=== PATIENT | male | born 1960 | race Caucasian/White ===

== ENCOUNTER 2016-05-06 22:50 | Inpatient (IN) | payer OTHER ==
[~2016-05-06] VITALS: Ht 182.9 cm; Wt 88.0 kg
[~2016-05-06 22:50] MED LIST: ACTOS30 M1 PO; ASPIRIN81 M4 PO; AUGMENTIN 875-1 EACH PO; DULOXETINE HCL30 MG PO; FERROUS SULFAT325 M2 PO; FLUOXETINE20 MG PO; FOLIC ACID1 M1 PO; HYDROCODONE/APA1 TA1 PO; KLOR-CON-EF 2525 MEQ PO; LASIX20 MG PO; LIPITOR20 M2 PO; METFORMIN HCL500 M3 PO; METOPROLOL TART25 M1 PO; NEURONTIN300 MG PO; NEXIUM40 M1 PO; OXYCODONE-ACET1 EACH PO; PRINIVIL 5MG5 MG PO; TRAZODONE HCL50 M1 PO
--- NOTE | 2016-05-06 23:03 | ED SYNCOPE COMPLAINT ---
History of Present Illness General Chief Complaint: Syncope and Near-Syncope Stated Complaint: NEAR SYNCOPE WITH FALL, INJURED RIGHT SHOULDER Source: patient, EMS Exam Limitations: no limitations Vital Signs & Intake/Output Vital Signs & Intake/Output Vital Signs Date Time Temp Pulse Resp B/P Pulse O2 O2 Flow FiO2 Ox Delivery Rate 05/07 0135 68 20 98/63 100 Room Air 05/07 0121 88/61 05/07 0104 100 Room Air 05/07 0100 68 16 82/52 100 Room Air 05/07 0002 76/44 05/06 2255 96.7 73 18 95/58 97 Room Air ED Intake and Output 05/07 0000 05/06 1200 Intake Total Output Total Balance Patient 195 lb Weight Allergies Coded Allergies: NO KNOWN ALLERGIES (12/17/15) Triage Note: BIBA FOR DIZZY SPELL RESULTING IN FALL WITH INJURY TO RIGHT SHOULDER. PT LAID ON FLOOR IN HOUSE FOR 2 HOURS UNTIL HE COULD CRAWL TO PHONE AND CALL FOR HELP. ONCE EMS ARRIVED PT WAS ASSISTED TO SITTING POSITION IN CHAIR AND HAD NEAR SYNCOPAL EPISODE IN CHAIR. IV STARTED AND GIVEN 400CC NS BY EMS. UPON ARRIVAL PT AWAKE ALERT, ORIENTED. COLD AND SHIVERING, PAIN 10 OUT OF 10 IN SHOULDER WITH ANY MANIPULATION OF JOINT. +PALPABLE PULSE IN RIGHT RADIAL ARTERY ARTER. + MOVEMENT AND SENSATION RIGHT HAND Triage Nurses Notes Reviewed? yes Timing: single episode today Precipitating Factors: lightheadedness Loss of Consciousness: brief (seconds) HPI: 56-year-old male comes into the emergency room for further evaluation after feeling lightheaded and dizzy and falling at home. Patient reports that he was walking in the kitchen and felt lightheaded and fell and came down on his right shoulder. Patient has sharp throbbing pain to right shoulder. Patient denies hitting his head or any neck pain. Patient was on the floor for a couple hours close using severe pain and could not move. Denies any pain in his hips. Denies any preceding chest pain or shortness of breath. History of low blood pressure. EMS reports that when they arrived they were moving him to the stretcher he had a brief syncopal episode. His blood pressure was 80 systolic. (KIM GARCÍA,BENNIE) Reconcile Medications Aspirin (Aspirin*) 81 MG TAB.CHEW 1 TAB PO DAILY HEART HEALTH . Atorvastatin Calcium (Lipitor) 20 MG TABLET 1 TAB PO DAILY CHOLESTEROL ( Reported) Duloxetine HCl 30 MG CAPSULE.DR 1 CAP PO DAILY MOOD (Reported) Esomeprazole (Nexium) 40 MG CAPSULE.DR 1 CAP PO DAILY GI (Reported) Ferrous Sulfate 325 MG TABLET.DR 1 TAB PO DAILY ANEMIA . Folic Acid 1 MG TABLET 1 TAB PO DAILY SUPPLEMENT Furosemide (Lasix) 20 MG TABLET 3 TAB PO DAILY hEART fAILURE (Reported) Gabapentin (Neurontin) 300 MG CAP 1 CAP PO TID PAIN Metformin HCl 500 MG TABLET 1 TAB PO DAILY dm (Reported) Metoprolol Tartrate 25 MG TABLET 1 MG PO BID HEART . Oxycodone HCl/Acetaminophen (Oxycodone-Acetaminophen 5-325) 1 EACH TABLET 1 TAB PO BIDP PRN PAIN (Reported) PIOGLITAZONE HCL (Pioglitazone HCl) 30 MG TABLET 1 TAB PO DAILY DIABETES ( Reported) Potassium Bicarbonate/Cit AC (Klor-Con-Ef 25 Meq Tab Eff) 25 MEQ TABLET.EFF 1 TAB PO DAILY SUPPLEMENT (Reported) Trazodone HCl 50 MG TABLET 1 TAB PO QPM SLEEP (Reported) (RUTH MORATAYA,IRINA Pride) Past History Travel History Traveled to [place] past 21 day No Medical History Any Pertinent Medical History? see below for history Neurological: peripheral neuropathy EENT: allergies Cardiovascular: CHF (Right sided), hypertension, hyperlipidemia Respiratory: NONE Gastrointestinal: NONE Hepatic: NONE Renal: NONE Musculoskeletal: NONE Psychiatric: NONE Endocrine: diabetes Blood Disorders: NONE Cancer(s): NONE MEDICAL APPOINTMENT SCHEDULER/Reproductive: NONE History of MRSA: No History of VRE: No History of CDIFF: No Surgical History Surgical History: appendectomy, hernia repair-inguinal, 2 hernia repairs Left leg debridement s/p dog bite back surgery Psychosocial History Who do you live with Patient/Self Services at Home None What is your primary language German Tobacco Use: Current Daily Use Daily Tobacco Use Amount/Type: => 5 Cigarettes daily ETOH Use: heavy use, TWO DRINKS PER DAY Illicit Drug Use: denies illicit drug use Family History Family History, If Any: MOTHER FH: COPD (chronic obstructive pulmonary disease) FATHER, , Age 50-60; Cause: Esophageal carcinoma. Esophageal carcinoma Hx Contributory? No (BENNIE RODRÍGUEZ) Review of Systems Review of Systems Constitutional: Reports: no symptoms. EENTM: Reports: no symptoms. Respiratory: Reports: see HPI. Cardiovascular: Reports: see HPI. GI: Reports: no symptoms. Genitourinary: Reports: no symptoms. Musculoskeletal: Reports: no symptoms. Skin: Reports: no symptoms. Neurological/Psychological: Reports: no symptoms. All Other Systems: Reviewed and Negative (BENNIE RODRÍGUEZ) Physical Exam Physical Exam General Appearance: alert, awake, mild distress Head: atraumatic, normal appearance Eyes: Bilateral: normal appearance, EOMI. Ears, Nose, Throat: normal pharynx, normal ENT inspection, hearing grossly normal Neck: normal inspection, full range of motion Respiratory: normal breath sounds, no respiratory distress Cardiovascular: regular rate/rhythm Back: normal inspection Extremities: Swelling to right shoulder, severe limited range of motion, proximal humerus tenderness, Psychiatric: awake, alert, oriented x 3 Cranial Nerves: normal hearing, normal speech, PERRL Motor/Sensory: no motor/sensory deficits Skin: intact, normal color Core Measures ACS in differential dx? No CVA/TIA Diagnosis: No Severe Sepsis Present: No Septic Shock Present: No (BENNIE RODRÍGUEZ) Progress Differential Diagnosis: AMI, aortic dissection, aortic valve, drug induced syncope, hyperventilation, orthostatic syncope, other valvular disease, pacemaker malfunction, pericardial tamponade, pulmonary embolus, seizure, sick sinus syndrome, subarachnoid hem., TIA/CVA, vasodepressor syncope, ventricular tach/fib, proximal humerus fracture, CT, Plan of Care: Orders Procedure Date/time Status Lab Add-on Test 05/07 0234 Active Patient Data 05/07 0115 Active Admit to inpatient 05/07 0102 Active URINE OSMOLALITY 05/07 0100 Active URINE LYTES, SPOT 05/07 0100 Active Add-on Test (ER Only) 05/07 0012 Active URINE DRUGS OF ABUSE 05/07 0012 Active Intake & Output 05/07 0000 Active Add-on Test (ER Only) 05/06 2359 Active URINALYSIS 05/06 2345 Complete SERUM OSMOLALITY 05/06 2327 Active MAGNESIUM 05/06 2327 Active ETHANOL 05/06 2327 Active Telemetry/Logistics Center Manager 05/06 2302 Active TROPONIN LEVEL 05/06 2302 Active COMPREHENSIVE METABOLIC PANEL 05/06 2302 Active CBC WITHOUT DIFFERENTIAL 05/06 2302 Complete EKG 05/06 2302 Active Current Medications Sig/Williams Start time Last Medication Dose Stop Time Status Admin Nicotine 21 MG DAILY 05/07 1000 UNVr (Nicoderm) Magnesium Sulfate 2 GM ONCE ONE 05/07 0245 UNVr (Mag Sulfate) 05/07 06 Dextrose/Water 250 ML (D5W) Potassium Chloride 40 MEQ Q8H 05/07 244 AC (KCl 40MEQ in N.S. 1000 ml bag) Sodium Chloride 1,000 ML (Normal Saline 0.9%) Potassium Chloride 10 MEQ ONCE ONE 05/07 244 UNVr 05/07 245 Potassium Chloride 10 MEQ ONCE ONE 05/07 244 UNVr 05/07 245 Laboratory Tests 05/07/16 0100: Urinalysis LIGHT H, Urine Color YEL, Urine Clarity CLEAR, Urine pH 6.0, Ur Specific [place] 1.010, Urine Protein TRACE H, Urine Ketones 40 H, Urine Nitrite NEG, Urine Bilirubin NEG@ICTO, Urine Urobilinogen 1.0, Ur Leukocyte Esterase NEG, Ur Microscopic SEDIMENT EXAMINED, Urine RBC 1-3, Ur Epithelial Cells RARE, Urine Mucus RARE, Urine Hemoglobin TRACE-INTACT H, Urine Glucose NEG 05/07/16 0100: Urine Opiates Screen 402.00, Methadone Screen 51, Barbiturate Screen < 60, Ur Phencyclidine Scrn < 6.00, Amphetamines Screen < 100, U Benzodiazepines Scrn < 85, Urine Cocaine Screen < 50, Urine Cannabis Screen < 5.00, Urine Osmolality Pending, Ur Random Creatinine Pending, Ur Random Sodium Pending, Ur Random Potassium Pending, Fraction Sodium Excret Pending 05/06/167: Anion Gap 34 H, Estimated GFR 45 L, BUN/Creatinine Ratio 16.3, Glucose 174 H, Serum Osmolality Pending, Calcium 8.5, Magnesium 1.3 L, Total Bilirubin 1.6 H, AST 29, ALT 32, Alkaline Phosphatase 80, Troponin I 0.03, Total Protein 7.3, Albumin 4.4, Globulin 2.9, Albumin/Globulin Ratio 1.5, CBC w Diff NO MAN DIFF REQ, RBC 4.26 L, MCV 89.2, MCH 30.9, RDW 12.6, MPV 8.0, Gran % 85.9 H, Lymphocytes % 7.6 L, Monocytes % 6.2, Eosinophils % 0.1, Basophils % 0.2, Absolute Granulocytes 9.8 H, Absolute Lymphocytes 0.9 L, Absolute Monocytes 0.7 H, Absolute Eosinophils 0, Absolute Basophils 0, PUBS MCHC 34.6, Serum Alcohol < 10.0 Diagnostic Imaging: Viewed by Me: Radiology Read. Discussed w/RAD: Radiology Read. Initial ED EKG: normal p-waves, normal sinus rhythm, rate (68), nonspecific ST T wave chg Prior EKG: changed Hand-Off Endorsed To: IRINA MIRANDA MD Endorsed Time: 53 Pending: other (primary care to call back) (BENNIE RODRÍGUEZ) Comments: 05/07/2016 1:00:24 AM patient's case discussed with Dr. DEAL. If we can stabilize the patient's blood pressure he will be admitted to the telemetry service otherwise an ICU admission. Patient is being treated with IV fluid boluses, potassium supplementation. 05/07/2016 2:44:33 AM patient placed in a shoulder immobilizer given the proximal humerus fracture. House staff to contact orthopedics. (IRINA MIRANDA MD) Departure Departure Disposition: STILL A PATIENT Condition: Stable Clinical Impression Primary Impression: Hypokalemia Secondary Impressions: Acute electrocardiogram changes, Acute kidney injury, ETOH abuse, High anion gap metabolic acidosis, Hypotension, Proximal humerus fracture Referrals: EMANI GALDAMEZ MD (PCP/Family) Departure Forms: Customer Survey General Discharge Information Admission Note Documentation of Exam: Documentation of any treatments & extenuating circumstances including Concerns Regarding Discharge (functional status, medication knowledge or non-compliance, living conditions, etc.) that warrant an admission rather than observation: Patient will require aggressive IV hydration. IV potassium. Critical care. Orthopedic consultation. Case management consult. EKG changes. Patient unsafe at home. Cardiac consultation. (BENNIE RODRÍGUEZ) PA/SCHEDULING ADMINISTRATOR Co-Sign Statement Statement: ED Attending supervision documentation- [] I saw and evaluated the patient. I have also reviewed all the pertinent lab results and diagnostic results. I agree with the findings and the plan of care as documented in the PA's/SCHEDULING ADMINISTRATOR's documentation. [X] I have reviewed the ED Record and agree with the PA's/SCHEDULING ADMINISTRATOR's documentation. [] Additions or exceptions (if any) to the PAs/SCHEDULING ADMINISTRATOR's note and plan are summarized below: [] (IRINA MIRANDA MD) Critical Care Note Critical Care Note Critical Care Time: 30-74 min (IRINA MIRANDA MD)
--- NOTE | 2016-05-06 23:31 | NUR ---
PT RECIEVED TO ROOM 6. SEEN BY BENNIE GARCÍA. IV IN PLACE BY EMS, LABS DRAWN. PT PANTS SOILED WITH URINE-ASSISTED IN GETTING UNDRESSED. PT IN SEVERE PAIN IN SHOULDER WITH SLIGHTEST MOVEMENT OF BODY. PT REFUSING XRAYS UNTIL GIVEN PAIN MEDICATION. IVF BOLUS OF NS INFUSING DUE TO LOW BLOOD PRESSURES.
--- NOTE | 2016-05-06 23:31 | NUR ---
BIBA FOR DIZZY SPELL RESULTING IN FALL WITH INJURY TO RIGHT SHOULDER. PT LAID ON FLOOR IN HOUSE FOR 2 HOURS UNTIL HE COULD CRAWL TO PHONE AND CALL FOR HELP. ONCE EMS ARRIVED PT WAS ASSISTED TO SITTING POSITION IN CHAIR AND HAD NEAR SYNCOPAL EPISODE IN CHAIR. IV STARTED AND GIVEN 400CC NS BY EMS. UPON ARRIVAL PT AWAKE ALERT, ORIENTED. COLD AND SHIVERING, PAIN 10 OUT OF 10 IN SHOULDER WITH ANY MANIPULATION OF JOINT. +PALPABLE PULSE IN RIGHT RADIAL ARTERY ARTER. + MOVEMENT AND SENSATION RIGHT HAND
[2016-05-06 23:44] LABS: ABSOLUTE BASOPHIL COUNT 0 /CUMM (0.0-0.2); ABSOLUTE EOSINOPHIL COUNT 0 /CUMM (0.0-0.7); ABSOLUTE GRANULOCYTE CT 9.8 /CUMM (1.4-6.5); ABSOLUTE LYMPH COUNT 0.9 /CUMM (1.2-3.4); ABSOLUTE MONOCYTE COUNT 0.7 /CUMM (0.10-0.60); BASOPHIL % 0.2 % (0.0-2.0); EOSINOPHIL % 0.1 % (0-5); GRANULOCYTE % 85.9 % (42.2-75.2); MEAN CORPUSCULAR HGB 30.9 PG (27.0-31.0); MEAN CORPUSCULAR HGB CONC 34.6 G/DL (33.0-37.0); MEAN CORPUSCULAR VOLUME 89.2 FL (80.0-94.0); PLATELET COUNT 193 /CUMM (130-400); RBC DISTRIBUTION WIDTH 12.6 % (11.5-14.5); RED BLOOD CELL CT 4.26 /CUMM (4.70-6.10)
--- NOTE | 2016-05-06 23:58 | NUR ---
CRITICAL TEST RESULTS [id number] MAGGIE ROONEY 56 M TESTS AND RESULTS: POTASSIUM 2.1 Results received and read back by: TOÑITO BARBER Results received date and time: 05/06/16 7234 The following provider was notified of the results, and read the results back: RAQUEL ALVAREZ Notified date and time: 05/06/16 at [id number]
[2016-05-07] VITALS (7 sets, daily range): BP systolic 72–100; BP diastolic 52–707
[2016-05-07 00:03] LABS: WHITE BLOOD CELL COUNT 11.4 /CUMM (4.8-10.8)
--- NOTE | 2016-05-07 00:30 | NUR ---
PT DAUGHTER ALICIA [phone] WOULD LIKE TO BE CALLED IF ANY FURTHER INFO NEEDED.
--- NOTE | 2016-05-07 00:32 | NUR ---
PCXR AND SHOULDER XR DONE
--- NOTE | 2016-05-07 00:40 | NUR ---
2ND IV INSERTED, NS UP WO KDUR 40 PO GIVEN
--- NOTE | 2016-05-07 01:01 | NUR ---
URINE TRIO SENT
[2016-05-07] MEDS ORDERED: FUROSEMIDE40 M1 PO (01:03)
--- NOTE | 2016-05-07 01:30 | History & Physical ---
PAULO MORATAYA,[facility] – [place] 05/07/16 0129: General Information and HPI MD Statement: I have seen and personally examined MAGGIE ROONEY and documented this H&P. The patient is a 56 year old M who presented with a patient stated chief complaint of near syncope. Source of Information: patient, old records Exam Limitations: no limitations History of Present Illness: Mr. Rooney is a 56 y/o M with PMHx of questionable right heart failure, T2DM c /b peripheral neuropathy, HTN, HLD and alcohol abuse who presents after an episode of near syncope. Patient was in his usual state of health the evening of current presentation to the ED when he felt lightheaded while walking in the kitchen and subsequently fell down on the floor landing on his right shoulder. He denies loss of consciousness or head trauma. However, he reports that while being moved to a chair by paramedics, he passed out for about 12 seconds due to severe pain in his right shoulder, which he continues to endorse. He denies chest pain, palpitations or shortness of breath leading up to the episode. He reports good PO intake and notes that he has been drinking a lot of water. He denies fever, chills, URI symptoms, nausea, vomiting or diarrhea. Of note, patient has been smoking cigarettes for the past 40 years and currently smokes about one pack per day. He admits to drinking a couple of glasses of vodka drinks daily. Of note, patient had a similar presentation to [facility] in November 2015 and was hospitalized with hypotension, hypokalemia and hypomagnesemia and treated with IVF hydration and electrolyte replacement. During that admission, he was found to be anemic and transfused 1 unit of pRBCs. An ECHO had been performed as well which had shown normal LVEF of 55-60% but was technically suboptimal and inadequate for the assessment of right heart function and pressures. Allergies/Medications Allergies: Coded Allergies: NO KNOWN ALLERGIES (12/17/15) Home Med list Aspirin (Aspirin*) 81 MG TAB.CHEW 1 TAB PO DAILY HEART HEALTH . Atorvastatin Calcium (Lipitor) 20 MG TABLET 1 TAB PO DAILY CHOLESTEROL ( Reported) Duloxetine HCl 30 MG CAPSULE.DR 1 CAP PO DAILY MOOD (Reported) Esomeprazole (Nexium) 40 MG CAPSULE.DR 1 CAP PO DAILY GI (Reported) Ferrous Sulfate 325 MG TABLET.DR 1 TAB PO DAILY ANEMIA . Folic Acid 1 MG TABLET 1 TAB PO DAILY SUPPLEMENT Furosemide (Lasix) 20 MG TABLET 3 TAB PO DAILY hEART fAILURE (Reported) Gabapentin (Neurontin) 300 MG CAP 1 CAP PO TID PAIN Metformin HCl 500 MG TABLET 1 TAB PO DAILY dm (Reported) Metoprolol Tartrate 25 MG TABLET 1 MG PO BID HEART . Oxycodone HCl/Acetaminophen (Oxycodone-Acetaminophen 5-325) 1 EACH TABLET 1 TAB PO BIDP PRN PAIN (Reported) PIOGLITAZONE HCL (Pioglitazone HCl) 30 MG TABLET 1 TAB PO DAILY DIABETES ( Reported) Potassium Bicarbonate/Cit AC (Klor-Con-Ef 25 Meq Tab Eff) 25 MEQ TABLET.EFF 1 TAB PO DAILY SUPPLEMENT (Reported) Trazodone HCl 50 MG TABLET 1 TAB PO QPM SLEEP (Reported) Past History Travel History Traveled to [place] past 21 day No Medical History Neurological: peripheral neuropathy EENT: allergies Cardiovascular: CHF (Right sided), hypertension, hyperlipidemia Respiratory: NONE Gastrointestinal: NONE Hepatic: NONE Renal: NONE Musculoskeletal: chronic back pain Psychiatric: alcohol dependence, anxiety Endocrine: diabetes Blood Disorders: NONE Cancer(s): NONE TRANSITIONAL CARE NURSE/Reproductive: NONE History of MRSA: No History of VRE: No History of CDIFF: No Surgical History Surgical History: appendectomy, hernia repair-inguinal, 2 hernia repairs, left leg debridement s/p dog bite, back surgery ECHO Results (as available) Date of last Echo 12/18/15 EF% 55 (55-60%) Past Family/Social History Family History Relations & Conditions if any MOTHER FH: COPD (chronic obstructive pulmonary disease) FATHER, , Age 50-60; Cause: Esophageal carcinoma. Esophageal carcinoma Psychosocial History Where do you live? Home Who Do You Live With? self Services at Home: None Primary Language: Portuguese Smoking Status: Current Everyday Smoker (Smokes 1 PPD, Smoked 40 Yrs) ETOH Use: heavy use (couple of vodka drinks per day) Illicit Drug Use: denies illicit drug use Functional Ability ADLs Independent: dressing, eating, toileting, bathing. Ambulation: cane IADLs Independent: shopping, housework, finances, food prep, telephone, transportation , medication admin. Employment History Employment Retired Profession/Employer [employer] Review of Systems Review of Systems Constitutional: Denies: chills, fever. EENTM: Reports: no symptoms. Cardiovascular: Denies: chest pain, palpitations. Respiratory: Denies: short of breath. GI: Denies: abdominal pain, diarrhea, nausea, vomiting. Genitourinary: Reports: no symptoms. Musculoskeletal: Reports: see HPI (right shoulder pain), back pain (chronic). Skin: Reports: no symptoms. Neurological/Psychological: Reports: no symptoms. Hematologic/Endocrine: Reports: no symptoms. Immunologic/Allergic: Reports: no symptoms. All Other Systems: Reviewed and Negative Exam & Diagnostic Data Last 24 Hrs of Vital Signs/I&O Vital Signs Date Time Temp Pulse Resp B/P Pulse O2 O2 Flow FiO2 Ox Delivery Rate 05/07 0135 68 20 98/63 100 Room Air 05/07 0121 88/61 05/07 0104 100 Room Air 05/07 0100 68 16 82/52 100 Room Air 05/07 0002 76/44 05/06 2255 96.7 73 18 95/58 97 Room Air Intake & Output 05/07 0800 05/07 0000 05/06 1600 Intake Total 1000 Output Total 300 Balance 700 Intake, IV 1000 Output, Urine 300 Patient 88.451 kg Weight Physical Exam General Appearance Alert, Oriented X3, No Acute Distress Skin No Rashes HEENT Atraumatic, Mucous Membr. moist/pink Cardiovascular Regular Rate, Normal S1, Normal S2 Lungs Clear to Auscultation Abdomen Soft, No Tenderness, Positive Bowel Sounds Extremities No Clubbing, No Cyanosis, No Edema, Unable to Examine Right Shoulder Due to Pain Last 24 Hrs of Labs/[place]: Laboratory Tests 05/07/16 0100: Urine Opiates Screen 402.00, Methadone Screen 51, Barbiturate Screen < 60, Ur Phencyclidine Scrn < 6.00, Amphetamines Screen < 100, U Benzodiazepines Scrn < 85, Urine Cocaine Screen < 50, Urine Cannabis Screen < 5.00, Urinalysis LIGHT H , Urine Color YEL, Urine Clarity CLEAR, Urine pH 6.0, Ur Specific [place] 1.010, Urine Protein TRACE H, Urine Ketones 40 H, Urine Nitrite NEG, Urine Bilirubin NEG@ICTO, Urine Urobilinogen 1.0, Ur Leukocyte Esterase NEG, Ur Microscopic SEDIMENT EXAMINED, Urine RBC 1-3, Ur Epithelial Cells RARE, Urine Mucus RARE, Urine Hemoglobin TRACE-INTACT H, Urine Glucose NEG 05/06/16 2327: Anion Gap 34 H, Estimated GFR 45 L, BUN/Creatinine Ratio 16.3, Glucose 174 H, Calcium 8.5, Magnesium 1.3 L, Total Bilirubin 1.6 H, AST 29, ALT 32, Alkaline Phosphatase 80, Troponin I 0.03, Total Protein 7.3, Albumin 4.4, Globulin 2.9, Albumin/Globulin Ratio 1.5, CBC w Diff NO MAN DIFF REQ, RBC 4.26 L, MCV 89.2, MCH 30.9, RDW 12.6, MPV 8.0, Gran % 85.9 H, Lymphocytes % 7.6 L, Monocytes % 6.2, Eosinophils % 0.1, Basophils % 0.2, Absolute Granulocytes 9.8 H, Absolute Lymphocytes 0.9 L, Absolute Monocytes 0.7 H, Absolute Eosinophils 0, Absolute Basophils 0, PUBS MCHC 34.6, Serum Alcohol < 10.0 Diagnostic Data EKG Results Sinus rhythm HR 78 Incomplete RBBB T wave inversions and prominent U waves CXR Results No acute cardiopulmonary findings. Other Results XR R SHOULDER: Comminuted fracture of the proximal right humerus. Assessment/Plan Assessment: 56 y/o M with PMHx of right-sided heart failure, T2DM c/b peripheral neuropathy and alcohol abuse who presents after a near syncopal episode, with hypotension, hypokalemia and hypomagnesemia on admission. #Near syncope/syncope: Most likely secondary to orthostatic hypotension in the setting of dehydration. Blood pressure to a mathew of 76/44 in the ED, improved to 90/60s with NS boluses. Differential includes neurocardiogenic syncope secondary to pain and arrhythmias. * Admit to the telemetry floor for continuous cardiac monitoring. * Aggressive IVF hydration with 40 mEq of KCl in NS @ 125 cc/hr. * Check orthostatics in the AM after IVF hydration. * PT/OT consult. * Fall precautions. #KAM: Cr 1.6 on admission. Baseline creatinine normal - 0.8 in December 2015. Most likely pre-renal secondary to hypotension. * Aggressive IVF hydration. * Hold home Lasix. * Continue to monitor lytes and kidney function. * Avoid nephrotoxic medications. #Anion gap metabolic acidosis: ABG 7.41|24|94|15 and anion gap markedly elevated to 34. Associated with concomitant metabolic alkalosis most likely secondary to volume contraction and compensatory respiratory alkalosis. Anion gap metabolic acidosis most likely secondary to alcoholic ketoacidosis. Lactic acid is only mildly elevated at 2.3 which would not explain the high anion gap. * Check beta-hydroxybutyrate and acetoacetic acid levels to evaluate for alcoholic ketoacidosis. * Consider repeating ABG after IVF hydration. #R humeral fracture: S/p fall. XR R shoulder with fracture of the right proximal humeral shaft. * Management per orthopedic surgery team. * Place right arm in sling. * Vicodin 1 tab PO Q6H PRN for moderate pain (scale 4-6) and morphine 2 mg IV Q4H PRN for severe pain (scale 7-10). #Hyponatremia: Na 132 on admission. Differential includes dehydration, beer potomania, psychogenic polydipsia and SIADH. * Check urine and serum osmolality and urine lytes. #Hypokalemia: Severe hypokalemia with K of 2.1 on admission and EKG changes including T wave inversions and prominent U waves. History of chronic hypokalemia likely secondary to alcohol abuse. Takes potassium bicarbonate supplements, 25 mEq daily. * Replete with 10 mEq of IV K x 3 and 40 mEq of PO K. * IVF with 40 mEq of KCl in NS @ 125 cc/hr. * Re-check BMP in the AM. #Hypomagnesemia: Magnesium 1.3 on admission. Likely secondary to alcohol abuse. * Replete with 2 mg of IV K. #T2DM: Takes metformin 500 mg PO QD and pioglitazone 30 mg PO QD at home. * Holding oral hypoglycemic agents while inpatient. * Accu-checks and low dose Novolog SSI TIDAC. #Alcohol abuse: Admits to drinking several vodka drinks per day. * Place on [facility] protocol to monitor for signs/symptoms of alcohol withdrawal. * Consider social work consult. * PO folic acid, thiamine and MVI. #CHF: Right heart failure most likely secondary to underlying COPD in the setting of significant smoking history. Most recent ECHO in November 2015 with LVEF of 55-60% but of poor quality and technically not adequate for the assessment of right heart function and pressures. Takes metoprolol 25 mg PO BID and furosemide 60 mg PO QD. * No need to repeat ECHO at this time. * Holding prior to admission metoprolol and furosemide in the setting of hypotension. #Nicotine dependence: Currently smokes 1 PPD. Has smoked for about 40 years. * Nicotine patch 21 mg administered. #Insomnia: * Continue home trazodone 50 mg PO QHS. Diet: Consistent carbohydrate with 2 g Na restriction DVT PPx: HSQ and ALPs CODE: FULL As Ranked By This Provider Problem List: 1. KAM (acute kidney injury) 2. Type 2 diabetes mellitus 3. High anion gap metabolic acidosis 4. Proximal humerus fracture 5. ETOH abuse 6. Hypokalemia 7. Hypomagnesemia 8. Hypotension 9. Syncope, near 10. Syncope and collapse Core Measures/Miscellaneous Acute Coronary Syndrome ACS Diagnosis: No Cerebrovascular Accident CVA/TIA Diagnosis: No Congestive Heart Failure CHF Diagnosis: No Venous Thromboembolism VTE Risk Factors: Age > 40, Smoking VTE Prophylaxis Ordered Inpt: Mech & Pharm No Mech VTE prophylaxis d/t: No contraindications No VTE Pharm Prophylaxis d/t: No contraindications VTE Diagnosis: No VTE Type: NONE VTE Confirmed by (Test): NONE Severe Sepsis Severe Sepsis Present: No BC x2: Yes Lactic Acid x2: Yes IV ABX Broad Spectrum: Yes Septic Shock Septic Shock Present: No Miscellaneous Documentation Attending Case Discussed With: EMANI GALDAMEZ MD Primary Care Physician: EMANI GALDAMEZ MD Patient sees these Specialists Loader Magazine Grinder Feliz Forbes MD Level of Patient Care: Telemetry KIM KING 05/07/16 0220: Resident Review Statement Resident Statement: examined this patient, discussed with internal combustion engineer, agreed with internal combustion engineer, discussed with family, reviewed EMR data (avail), discussed with nursing , discussed with case mgmt, reviewed images, amended to note Other Findings: 56-year-old gentleman presented to the emergency room with complaint of mechanical fall on right arm tenderness. Past medical history significant for right sided heart failure, diabetes not insulin dependent, diabetic neuropathy, hyperlipidemia, hypertension, has baseline systolic blood pressure of 100 he was admitted from 12/16-12/21/2015 for symptomatic hypotension in addition to KAM and Was Found to be slightly hyponatremic, hypokalemic which all resolved with IV hydration. This evening patient he became slightly lightheaded and dizzy, which he described as "room was spinning around my head". Patient lost his balance and landed on his right arm and immediately felt excruciating pain under upper pole of the right arm I was not able to move the right upper extremity. Patient denies recent change in his health, change in medication, recent nausea vomiting and diarrhea, fever, chills, palpitation, similar episodes in the past, chest pain, or loss of consciousness before/during or after the fall when he was on the floor. However he had reportedly 12 seconds of loss of consciousness while he was repositioned by first responders. He was rushed to [facility] emergency room. 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 Review of system: Complains of right arm excruciating pain and restricted range of motion. Pertinent findings in PH/Ex: AOx3; no findings of head trauma; Mocous membranes are dry; CV: S1 loud S2 no murmur; Lungs: decreased air movement; EXT: RUE: internally rotated hand and patient is reluctant to move that arm, restricted ROM, pulses +2 all x4 extremities; Neuro: No focal senosry / motor deficit. Pertinent data Pulmonary function test: Mild COPD with normal DLCO. Echo 12/18/2015: Left ventricular ejection fraction of 55-60%, RV pressure was not measured (limited study), WBC: 11.4 with left shif and no bandemia K 2.1 Na 132 Cl 76 HCo3 22 AG 34 Cr 1.6 EKG: Sinus, 68 bpm, T wave inv in septolateral leads+ prominent U wave, no ST T seg change Right shoulder and arm xray: Comminuted fracture of the proximal right humerus. No acute cardiopulmonary findings. A/P 56-year-old gentleman with history of admission due to low blood pressure was admitted for presyncopal/syncopal episode. List of Problems: presyncope/syncope and fall: EKG showed T wave invertion and prominent U wave in V2-V5. No acute underlying electrolyte of not T segment change. Patient is not in overt heart failure. As his previous admission, this presentation, seems to be related to an episode of symptomatic hypotension that reslted in Fx of his humerus. -Admit to telemetry for continuous cardiac monitoring -Fall percussion -No need for repeat echo -Cardio consult in the am-Dr. Forbes -Correction of underlying electrolyte abnormailities -PT in the morning -Ortho consult in the am for commiuted Fx of right Humerus -sling the right arm -pain management -Hold antihypertenssive medication and restart with holding parameter KAM mostly due to dehydration: received 2 lit of NLSaline already -Continue IV hydration w/ Nlsl line +40 meq K -Po K supplementatio from am-home dose -Repeat BEP in the am Hyponatremia: pending Urine and serum (osmolarity and urine lytes and patient is not on diuretics. Psychogenic polydipsia, and/or SIAD, dehydration. -Hold Diuretics -Replete with Normal saline infusion 125 ml /h severe hypokalemia ,Hypohmagnesemia w/ associated EKG changes. Hx of hypokalemia , on home supplemets 2/2 to lasix ??, Low magnesium,all, in the setting of possible alcohol abuse -admit to telemetry for continuous cardiac monitoring -Replete potassium with IV normal saline with 40 mEq of potassium to 125 ml/h -potassium chloride 10 mEq IV push two runs -Repeat BEP in the Am -Repeat magnesium as a possible cause of Acid base disturbance: Triple acid base disturbance, Primary metabolic acidosis with high AG (lactic acidosis) and metabolic alkalosis and Respiratory compensation. slight elevation in LA does not explain the elevated AD in these patient. The whole picture of minimal LA+ hypokalemia and low magnesium pointing toward alcohol ingestion>>> Alcoholic Ketoacidosis or AKA. -Follow B-hydroxybutyrate- order was placed and request was coordinated with the laborer chemical processing. The test is pending pathologist approval to be done. -Stop loop diuretic -repeat ABG after proper hydration -follow nephrology consult HTN and Right-sided heart failure -Lasix and metoprolol were held due to his hypotension -reassess and restart these meds if bP allows Nicotine dependence -Nicotine patch 21 mg every 24 hours EToH abuse ?? -Ativan 2 mg po Per CIWA for CIWA of >11 Q6h -Multivit -B6-Folic acid elevated bili: worked up in [place] in 2016 and was normal -chronic/stable Hx of DM -Hold OHA -carbohydrate consistent diet -Insulin aspart SS -
--- NOTE | 2016-05-07 01:36 | NUR ---
HOUSE STAFF HERE TO MYA
--- NOTE | 2016-05-07 01:38 | RADIOLOGY REPORT ---
EXAMINATION: XR PORTABLE CHEST CLINICAL INFORMATION: Syncope COMPARISON: 12/31/2015 TECHNIQUE: Portable AP view of the chest was obtained. FINDINGS: Lung volumes are symmetric. No focal consolidation is seen. No evidence of pneumothorax, pleural effusion, or pulmonary edema. The cardiomediastinal contour is unremarkable. There is a comminuted, mildly displaced fracture of the proximal right humerus. IMPRESSION: Comminuted fracture of the proximal right humerus. No acute cardiopulmonary findings.
--- NOTE | 2016-05-07 01:39 | RADIOLOGY REPORT ---
EXAMINATION: XR SHOULDER, RIGHT CLINICAL INFORMATION: Shoulder pain, fall COMPARISON: None TECHNIQUE: Single AP view of the right shoulder. FINDINGS: There is a comminuted fracture of the proximal humeral shaft, with mild displacement of fragments. Glenohumeral alignment appears maintained on this single view. IMPRESSION: Comminuted, mildly displaced fracture of the proximal humeral shaft.
--- NOTE | 2016-05-07 02:01 | NUR ---
Emergency Dept [facility] Admit Note: To be admitted to [facility] by DR. DEAL with HYPOKALEMIA/SYNCOPE as the diagnosis, to TELE 1NO #[id number] location. Nursing Clutch Operator and admitting notified 05/07/16 at [id number]
--- NOTE | 2016-05-07 02:25 | NUR ---
REPORT CALLED TO RODRIGUEZ SPARROW 1NO
--- NOTE | 2016-05-07 04:28 | NUR ---
PT ADMITTED FROM ER VIA [facility]. ORIENTED TO ROOM, STAFF, AND CALL MIRANDA. VSS. [id number]. SLING TO RIGHT SHOULDER. + CMS. SWELLING AND REDNESS TO BLE. SKIN INTACT. MEDICATED FOR PAIN. FLUIDS RUNNING ORDERED. WILL CONTINUE TO MONITOR.
[2016-05-07 08:26] LABS: ABSOLUTE BASOPHIL COUNT 0 /CUMM (0.0-0.2); ABSOLUTE EOSINOPHIL COUNT 0 /CUMM (0.0-0.7); ABSOLUTE GRANULOCYTE CT 4.5 /CUMM (1.4-6.5); ABSOLUTE LYMPH COUNT 0.9 /CUMM (1.2-3.4); ABSOLUTE MONOCYTE COUNT 0.4 /CUMM (0.10-0.60); BASOPHIL % 0.1 % (0.0-2.0); EOSINOPHIL % 0.2 % (0-5); GRANULOCYTE % 77.2 % (42.2-75.2); MEAN CORPUSCULAR HGB 31.2 PG (27.0-31.0); MEAN CORPUSCULAR VOLUME 89.2 FL (80.0-94.0); MEAN PLATELET VOLUME 7.6 FL (7.4-10.4); PLATELET COUNT 116 /CUMM (130-400); WHITE BLOOD CELL COUNT 5.8 /CUMM (4.8-10.8)
--- NOTE | 2016-05-07 08:58 | Admission Certification ---
See Addendum Admission Certification Certification Statement - As attending physician, I certify that at the time of - admission, based on clinical presentation, severity of - symptoms, need for further diagnostic testing and - therapeutic interventions, and risk of adverse outcomes - without in-hospital treatment, in my clinical assessment, - this patient requires an acute hospital stay for a minimum - of two nights or longer. I have also considered psychsocial - factors such as support system, advanced age, financial - issues, cognitive issues, and failed out-patient treatments, - past re-admission history, safety of patient, and lack of - compliance as applicable. Specific rationale supporting this admission is: Admitted for a fall sustaining a fracture of the right humerus volume depleted with the hypokalemia hypomagnesemia
--- NOTE | 2016-05-07 08:58 | PN- Att Addend ---
Attending Addendum Attending Brief Note Covering attending note. 56-year-old gentleman admitted to the hospital with feeling of lightheadedness. He claims he was dehydrated and lightheaded and he fell and landed on his right shoulder sustaining fracture to the right shoulder. He has no history of nausea vomiting or diarrhea recently is been compliant with this medication he denies any chest pain or any shortness of breath palpitations. He denies the need loss of body fluids but admits not drinking enough fluids. It exam about 3-4 drinks every day. Was admitted to the hospital in the last November with the dehydration hypotension hyperkalemia hypomagnesemia which was repleted after IV fluids. Past medical history of hypertension diabetes dyslipidemia. 4 neuropathy and CHF. On examination patient is awake alert oriented with a seth appearance Neck is supple JVD is not raised no carotid bruit S1-S2 is normal Lungs are clear Abdomen is soft nontender bowel sounds are present Extremities left shoulder is splinted and mobility is limited because of severe pain secondary to fracture Bilateral peripheral neuropathy of the lower extremities Labs Hemoglobin is 13.1 hematocrit is 38.0 white count is 7.4 Sodium 132 potassium 2.1 chloride 76 bicarbonate 20 [place] 26 creatinine 1.6 Glucose was 74 and magnesium is 1.3 (1.6 MCV 89.2 Chest x-ray normal EKG shows sinus rhythm right bundle branch block with T waves inversions a prominent U waves Chest x-ray normal X-ray shows comminuted fracture of the proximal right humerus Assessment #1 near syncope or lightheadedness most likely secondary to orthostatic hypotension the setting of dehydration with a fall sustaining causing fracture of the right humerus. The patient on normal saline with potassium 40meq #2 CKG stage I Renal ultrasound and get a nephrology consult. #3 anion gap metabolic acidosis lactic acid level was 2.3 get a nephrology consult. Replete the potassium and magnesium Obtain orthopedic consult for fracture of the right humerus also obtain a cardiology consult Vitamin B12 and folic acid levels
[2016-05-07 10:14] LABS: HEMATOCRIT 26.3 % (42-52); RED BLOOD CELL CT 2.95 /CUMM (4.70-6.10)
--- NOTE | 2016-05-07 19:26 | Cons- Nephrology ---
General Information and HPI Consulting Request Date of Consult: 05/07/16 Requested By: EMANI GALDAMEZ MD Reason for Consult: Acute kidney injury and hypokalemia Source of Information: patient, old records Exam Limitations: no limitations History of Present Illness: This 56-year-old gentleman had an episode of syncope or near syncope and a fall and sustained a fracture of his right arm. In the course of his laboratory examination, it was found that his potassium was low and that he had developed acute kidney injury. He has a history of diabetes mellitus for the last 3 years coupled with a history of right heart failure for which she has been on furosemide. He has not been taking his potassium supplements. He reports 3 or 4 days of not eating well. Basically had no appetite. He also consumes 2 vodka drinks per day. He denies any history of hepatitis, but tells me he was vaccinated for hepatitis C. 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 Allergies/Medications Allergies: Coded Allergies: NO KNOWN ALLERGIES (12/17/15) Home Med List: Aspirin (Aspirin*) 81 MG TAB.CHEW 1 TAB PO DAILY HEART HEALTH . Atorvastatin Calcium (Lipitor) 20 MG TABLET 1 TAB PO DAILY CHOLESTEROL ( Reported) Duloxetine HCl 30 MG CAPSULE.DR 1 CAP PO DAILY MOOD (Reported) Esomeprazole (Nexium) 40 MG CAPSULE.DR 1 CAP PO DAILY GI (Reported) Ferrous Sulfate 325 MG TABLET.DR 1 TAB PO DAILY ANEMIA . Folic Acid 1 MG TABLET 1 TAB PO DAILY SUPPLEMENT Furosemide (Lasix) 20 MG TABLET 3 TAB PO DAILY hEART fAILURE (Reported) Gabapentin (Neurontin) 300 MG CAP 1 CAP PO TID PAIN Metformin HCl 500 MG TABLET 1 TAB PO DAILY dm (Reported) Metoprolol Tartrate 25 MG TABLET 1 MG PO BID HEART . Oxycodone HCl/Acetaminophen (Oxycodone-Acetaminophen 5-325) 1 EACH TABLET 1 TAB PO BIDP PRN PAIN (Reported) PIOGLITAZONE HCL (Pioglitazone HCl) 30 MG TABLET 1 TAB PO DAILY DIABETES ( Reported) Potassium Bicarbonate/Cit AC (Klor-Con-Ef 25 Meq Tab Eff) 25 MEQ TABLET.EFF 1 TAB PO DAILY SUPPLEMENT (Reported) Trazodone HCl 50 MG TABLET 1 TAB PO QPM SLEEP (Reported) Review of Systems Review of Systems Constitutional: Denies: see HPI, chills, diaphoresis, fever, malaise, weakness, unexplained weight loss. EENTM: Denies: blurred vision, double vision, visual changes, hearing changes, nasal congestion, epistaxis, nasal pain. Cardiovascular: Reports: peripheral edema, syncope. Denies: chest pain, edema, orthopena, palpitations. Respiratory: Denies: cough, hemoptysis, orthopnea, short of breath. GI: Denies: abdominal pain, bloating, constipation, diarrhea, distention, bloody stool, changes in stool, vomiting. Genitourinary: Denies: discharge, dysuria, frequency, hematuria, hesitation. Musculoskeletal: Denies: back pain, gout, joint pain, joint swelling, muscle pain. Skin: Denies: rash. Neurological/Psychological: Reports: no symptoms. Hematologic/Endocrine: Reports: no symptoms. 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 Esophageal carcinoma Psychosocial History Where Do You Live? Home Who Do You Live With? self Services at Home: None Primary Language: Vincentian Smoking Status: Current Everyday Smoker (Smokes 1 PPD, Smoked 40 Yrs) ETOH Use: heavy use (couple of vodka drinks per day) Illicit Drug Use: denies illicit drug use Functional Ability ADLs Independent: dressing, eating, toileting, bathing. Ambulation: cane IADLs Independent: shopping, housework, finances, food prep, telephone, transportation , medication admin. 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 Results (as available) Date of last Echo 12/18/15 EF% 55 (55-60%) Exam & Diagnostic Data Vital Signs and I&O Vital Signs Date Time Temp Pulse Resp B/P Pulse O2 O2 Flow FiO2 Ox Delivery Rate 05/07 1857 92 72/58 05/07 1647 86 80/52 05/07 1633 98.6 81 20 72/52 84 Room Air 05/07 1614 83 78/60 05/07 0902 97.1 75 18 96/62 96 Room Air 05/07 0425 97.9 70 20 100/707 100 Room Air 05/07 0135 68 20 98/63 100 Room Air 05/07 0121 88/61 05/07 0104 100 Room Air 05/07 0100 68 16 82/52 100 Room Air 05/07 0002 76/44 05/06 2255 96.7 73 18 95/58 97 Room Air Intake & Output 05/07 1600 05/07 0400 05/06 1600 05/06 0400 05/05 1600 05/05 0400 Intake Total 3295 3000 Output Total 1850 300 Balance 1445 2700 Intake, IV 1875 3000 Intake, Oral 1420 Output, Urine 1850 300 Patient 195 lb Weight Physical Exam General Appearance: well developed/nourished, no apparent distress, alert, awake , comfortable Head: atraumatic, normal appearance Eyes: Bilateral: PERRL, EOMI. Ears, Nose, Throat: normal pharynx, normal ENT inspection Neck: normal inspection, supple Respiratory: normal breath sounds, chest non-tender Cardiovascular: regular rate/rhythm, norml femoral pulses equa Peripheral Pulses: 3+ popliteal (R), 3+ popliteal (L), 3+ tibialis posterior (R), 3+ tibialis posterior (L), 3+ dorsalis pedis (R), 3+ dorsalis pedis (L) Gastrointestinal: normal bowel sounds, soft, non-tender, no organomegaly, no bruits Extremities: normal inspection, normal capillary refill, has a sling on his right side Neurologic/Psych: no motor/sensory deficits, awake, alert, oriented x 3, no gross neurologic deficits Skin: intact, normal color Lymphatic: no anterior cervical conor Results Imaging/Other Studies: PATIENT: MAGGIE ROONEY PRESENT AGE: 56 PATIENT ACCOUNT NO: [id number] : 61 LOCATION: [facility] ORDERING PHYSICIAN: BENNIE GARCÍA SERVICE DATE: 05/06/16 EXAM TYPE: RAD - XRY-PORTABLE CHEST XRAY EXAMINATION: XR PORTABLE CHEST CLINICAL INFORMATION: Syncope COMPARISON: 12/31/2015 TECHNIQUE: Portable AP view of the chest was obtained. FINDINGS: Lung volumes are symmetric. No focal consolidation is seen. No evidence of pneumothorax, pleural effusion, or pulmonary edema. The cardiomediastinal contour is unremarkable. There is a comminuted, mildly displaced fracture of the proximal right humerus. IMPRESSION: Comminuted fracture of the proximal right humerus. No acute cardiopulmonary findings. DICTATED BY: KEVIN ROSS MD DATE/TIME DICTATED:05/07/16132 FORMULA MAKER:PICKETT DATE/TIME TRANSCRIBED:05/07/16132 CONFIDENTIAL, DO NOT COPY WITHOUT APPROPRIATE AUTHORIZATION. <Electronically signed in Other Vendor System> SIGNED BY: KEVIN ROSS MD 05/07/16137 PATIENT: MAGGIE ROONEY PRESENT AGE: 56 PATIENT ACCOUNT NO: [id number] : 62 LOCATION: [facility] ORDERING PHYSICIAN: BENNIE GARCÍA SERVICE DATE: 05/06/16 EXAM TYPE: RAD - XRY-SHOULDER COMPLETE-RIGHT EXAMINATION: XR SHOULDER, RIGHT CLINICAL INFORMATION: Shoulder pain, fall COMPARISON: None TECHNIQUE: Single AP view of the right shoulder. FINDINGS: There is a comminuted fracture of the proximal humeral shaft, with mild displacement of fragments. Glenohumeral alignment appears maintained on this single view. IMPRESSION: Comminuted, mildly displaced fracture of the proximal humeral shaft. DICTATED BY: KEVIN ROSS MD DATE/TIME DICTATED:05/07/16134 FORMULA MAKER:PICKETT DATE/TIME TRANSCRIBED:05/07/16134 CONFIDENTIAL, DO NOT COPY WITHOUT APPROPRIATE AUTHORIZATION. <Electronically signed in Other Vendor System> SIGNED BY: KEVIN ROSS MD 05/07/16138 Assessment/Plan Assessment/Recommendations Assessment: 1. Acute kidney injury. Given his history of poor by mouth intake and ongoing furosemide use as well as failure to take his potassium supplements because he forgets this may be causing acute kidney injury which is already better. 2. Syncope or near-syncope he says he remembers going down and fracturing his humerus. We see above 3 hypokalemia. Likely poor by mouth intake coupled with missing his replacement. 4. History of 2 vodka drinks a day. Clearly one needs to be concerned about his developing delirium tremens. 5. History of right-sided heart failure. He tells me his lower extremities are swollen all the time 6. History of diabetes mellitus. He is only had diabetes for 3 or 4 years. 7. Metabolic acidosis. This may reflect hypoperfusion he did have a lactic acidosis. This is not related to metformin. Recommendations: 1. Continue to hold furosemide. 2. Continue to replace potassium as can be done IV or at this point by mouth Continue replace magnesium 3. Strict intakes and outputs daily weights 4. If his kidney function returns to normal I would not bother with imaging the kidneys. 5. Would suggest strict I's and O's and daily weights.
--- NOTE | 2016-05-07 20:36 | Cons- Cardiology ---
General Information and HPI Consulting Request Date of Consult: 05/07/16 Requested By: RUDOLPH MORATAYA,EMANI Hodgson Reason for Consult: Syncope, hypokalemia, nonsustained ventricular tachycardia History of Present Illness: The patient is a 56-year-old male with history of diabetes mellitus, hyperlipidemia, chronic HFpEF who is followed in the office by Dr. Forbes. He noticed lightheadedness and dizziness for several days prior to admission. Yesterday he fell secondary to the lightheadedness, and he sustained a fracture to the right shoulder. EMS was called. While being moved by paramedics he passed out for approximately 10 seconds because of severe shoulder pain. He was evaluated in the emergency department, and was found to have a fracture of the right humerus. He was noted to have evidence of acute kidney injury and severe hypokalemia, and was admitted for further management. He has had no chest pain. No shortness of breath. No other syncopal or presyncopal episodes. No palpitations. No diaphoresis. No nausea or vomiting. On telemetry, he was noted to have a 5 beat run of nonsustained ventricular tachycardia. Allergies/Medications Allergies: Coded Allergies: NO KNOWN ALLERGIES (12/17/15) Home Med List: Aspirin (Aspirin*) 81 MG TAB.CHEW 1 TAB PO DAILY HEART HEALTH . Atorvastatin Calcium (Lipitor) 20 MG TABLET 1 TAB PO DAILY CHOLESTEROL ( Reported) Duloxetine HCl 30 MG CAPSULE.DR 1 CAP PO DAILY MOOD (Reported) Esomeprazole (Nexium) 40 MG CAPSULE.DR 1 CAP PO DAILY GI (Reported) Ferrous Sulfate 325 MG TABLET.DR 1 TAB PO DAILY ANEMIA . Folic Acid 1 MG TABLET 1 TAB PO DAILY SUPPLEMENT Furosemide (Lasix) 20 MG TABLET 3 TAB PO DAILY hEART fAILURE (Reported) Gabapentin (Neurontin) 300 MG CAP 1 CAP PO TID PAIN Metformin HCl 500 MG TABLET 1 TAB PO DAILY dm (Reported) Metoprolol Tartrate 25 MG TABLET 1 MG PO BID HEART . Oxycodone HCl/Acetaminophen (Oxycodone-Acetaminophen 5-325) 1 EACH TABLET 1 TAB PO BIDP PRN PAIN (Reported) PIOGLITAZONE HCL (Pioglitazone HCl) 30 MG TABLET 1 TAB PO DAILY DIABETES ( Reported) Potassium Bicarbonate/Cit AC (Klor-Con-Ef 25 Meq Tab Eff) 25 MEQ TABLET.EFF 1 TAB PO DAILY SUPPLEMENT (Reported) Trazodone HCl 50 MG TABLET 1 TAB PO QPM SLEEP (Reported) Current Medications: Current Medications Sig/Williams Start time Last Medication Dose Route Stop Time Status Admin Acetaminophen 0 .STK-MED ONE 05/06 2336 DC IV Acetaminophen 1,000 MG ONCE ONE 05/06 233 DC 05/06 N/A 1 UNIT IV 05/06 2344 2341 Acetaminophen/ 1 TAB Q6P PRN 05/07 0315 AC 05/07 Hydrocodone Bitart PO 1656 Aspirin 81 MG DAILY 05/07 1000 AC 05/07 PO 1107 Atorvastatin Calcium 20 MG DAILY 05/07 1000 AC 05/07 PO 1107 Duloxetine HCl 30 MG DAILY 05/07 1000 AC 05/07 PO 1106 Ferrous Sulfate 325 MG DAILY 05/07 1000 AC 05/07 PO 1107 Folic Acid 1 MG DAILY 05/07 1000 AC 05/07 PO 1107 Heparin Sodium 5,000 UNIT Q8 05/07 0600 AC 05/07 (Porcine) SC 1410 Insulin Aspart 0 TIDAC 05/07 0800 AC 05/07 SC 1739 Lorazepam 1 MG Q2P PRN 05/07 0315 AC PO Magnesium Sulfate 1 GM Q2H 05/07 2000 AC Dextrose/Water 100 ML IV 05/07 2359 Magnesium Sulfate 1 GM Q2H 05/07 0245 DC 05/07 Dextrose/Water 100 ML IV 05/07 0644 0517 Morphine Sulfate 1 MG Q4P PRN 05/07 1600 AC IV Morphine Sulfate 2 MG Q4P PRN 05/07 0315 DC 05/07 IV 1420 Morphine Sulfate 0 .STK-MED ONE 05/06 2336 DC .ROUTE Morphine Sulfate 2 MG ONCE ONE 05/06 233 DC 05/06 IV 05/06 2331 2341 Multivitamins 1 TAB DAILY 05/07 1000 AC 05/07 PO 1107 Nicotine 21 MG DAILY 05/07 1000 AC 05/07 TOP 1106 Omeprazole 40 MG DAILY AC 05/07 0700 AC 05/07 PO 0614 Phosphate 250 MG PC AND AT BEDTIME 05/07 1800 AC 05/07 PO 1741 Potassium Chloride 20 MEQ DAILY 05/07 1000 CAN PO Potassium Chloride 20 MEQ BID 05/07 1000 AC 05/07 PO 1106 Potassium Chloride 10 MEQ Q1H 05/07 0930 DC 05/07 IV 05/07 1031 1410 Potassium Chloride 40 MEQ ONCE ONE 05/07 0345 DC 05/07 PO 05/07 0346 0355 Potassium Chloride 40 MEQ ONCE ONE 05/07 0300 DC PO 05/07 0301 Potassium Chloride 40 MEQ Q8H 05/07 0245 AC 05/07 Sodium Chloride 1,000 ML IV 1235 Potassium Chloride 10 MEQ Q1H 05/07 0245 DC 05/07 IV 05/07 0446 0615 Potassium Chloride 10 MEQ ONCE ONE 05/07 0245 CAN IV 05/07 0246 Potassium Chloride 0 .STK-MED ONE 05/07 0028 DC PO Potassium Chloride 0 .STK-MED ONE 05/07 0006 DC PO Potassium Chloride 0 .STK-MED ONE 05/07 0006 DC IV Potassium Chloride 10 MEQ ONCE ONE 05/06 2345 DC IV 05/06 2346 Potassium Chloride 10 MEQ ONCE ONE 05/06 2345 DC 05/07 IV 05/06 2346 0018 Potassium Chloride 40 MEQ ONCE ONE 05/06 2345 DC 05/07 PO 05/06 2346 0040 Sodium Chloride 1,000 ML BOLUS ONE 05/07 1915 AC 05/07 IV 05/07 2114 1910 Sodium Chloride 1,000 ML BOLUS ONE 05/06 2345 DC 05/07 IV 05/07 0044 0040 Sodium Chloride 1,000 ML BOLUS ONE 05/06 2330 DC 05/06 IV 05/07 0029 2341 Thiamine HCl 100 MG DAILY 05/07 1000 AC 05/07 PO 1107 Trazodone HCl 50 MG QPM 05/07 2200 AC PO Review of Systems Review of Systems: No rash. No tremor. No melena. No diaphoresis. No nausea. All other systems were reviewed, and were noted to be negative. 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 Esophageal carcinoma Psychosocial History Where Do You Live? Home Who Do You Live With? self Services at Home: None Primary Language: Andorran Smoking Status: Current Everyday Smoker (Smokes 1 PPD, Smoked 40 Yrs) ETOH Use: heavy use (couple of vodka drinks per day) Illicit Drug Use: denies illicit drug use Functional Ability ADLs Independent: dressing, eating, toileting, bathing. Ambulation: cane IADLs Independent: shopping, housework, finances, food prep, telephone, transportation , medication admin. 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 (as available) Date of last Echo 12/18/15 EF% 55 (55-60%) Exam & Diagnostic Data Vital Signs and I&O Vital Signs Date Time Temp Pulse Resp B/P Pulse O2 O2 Flow FiO2 Ox Delivery Rate 05/07 1857 92 72/58 05/07 1647 86 80/52 05/07 1633 98.6 81 20 72/52 84 Room Air 05/07 1614 83 78/60 05/07 0902 97.1 75 18 96/62 96 Room Air 05/07 0425 97.9 70 20 100/707 100 Room Air 05/07 0135 68 20 98/63 100 Room Air 05/07 0121 88/61 05/07 0104 100 Room Air 05/07 0100 68 16 82/52 100 Room Air 05/07 0002 76/44 05/06 2255 96.7 73 18 95/58 97 Room Air Intake & Output 05/07 1600 05/07 0800 05/07 0000 05/06 1600 05/06 0800 05/06 0000 Intake Total 2375 2920 1000 Output Total 1050 800 300 Balance 1325 2120 700 Intake, IV 1075 2800 1000 Intake, Oral 1300 120 Output, Urine 1050 800 300 Patient 195 lb 195 lb Weight Physical Exam: Gen: The patient is in no acute distress HEENT: Normal nose, ears, and oropharynx. Pupils equal bilaterally. Conjunctiva normal. Neck: Supple with no JVD, no masses, and no thyromegaly Lungs: Clear to auscultation with normal respiratory effort Heart: RRR, S1, S2, no murmurs. No peripheral edema, 2+ pulses in the lower extremities bilaterally Abdomen: Soft, nontender, no masses. No hepatomegaly. No splenomegaly Extremities: No clubbing or cyanosis. Normal muscle strength in the upper and lower extremities Skin: Normal skin turgor with no skin ulcers or lesions noted. Neuro: Cranial nerves intact. Sensation intact Psych: Alert and oriented 3 with appropriate affect Labs/[place] Results: Laboratory Tests 05/07 05/07 05/07 1705 1705 0736 Chemistry Sodium (137 - 145 mmol/L) 132 L Potassium (3.5 - 5.1 mmol/L) 3.0 L 2.6 *L Chloride (98 - 107 mmol/L) 93 L Carbon Dioxide (22 - 30 mmol/L) 20 L Anion Gap (5 - 16) 19 H BUN (9 - 20 mg/dL) 20 Creatinine (0.7 - 1.2 mg/dL) 1.3 H Estimated GFR (>60 ml/min) 57 L BUN/Creatinine Ratio (7 - 25 %) 15.4 Lactic Acid (0.7 - 2.1 mmol/L) 0.6 L Phosphorus (2.5 - 4.5 mg/dL) 1.8 L Magnesium (1.6 - 2.3 mg/dL) 1.6 1.8 Hematology CBC w Diff NO MAN DIFF REQ WBC (4.8 - 10.8 /CUMM) 5.8 RBC (4.70 - 6.10 /CUMM) 2.95 L Hgb (14.0 - 18.0 G/DL) 9.2 L Hct (42 - 52 %) 26.3 L MCV (80.0 - 94.0 FL) 89.2 MCH (27.0 - 31.0 PG) 31.2 H RDW (11.5 - 14.5 %) 13.0 Plt Count (130 - 400 /CUMM) 116 L MPV (7.4 - 10.4 FL) 7.6 Gran % (42.2 - 75.2 %) 77.2 H Lymphocytes % (20.5 - 51.1 %) 15.3 L Monocytes % (1.7 - 9.3 %) 7.2 Eosinophils % (0 - 5 %) 0.2 Basophils % (0.0 - 2.0 %) 0.1 Absolute Granulocytes (1.4 - 6.5 /CUMM) 4.5 Absolute Lymphocytes (1.2 - 3.4 /CUMM) 0.9 L Absolute Monocytes (0.10 - 0.60 /CUMM) 0.4 Absolute Eosinophils (0.0 - 0.7 /CUMM) 0 Absolute Basophils (0.0 - 0.2 /CUMM) 0 PUBS MCHC (33.0 - 37.0 G/DL) 35.0 Miscellaneous Ref Lab Test Result Cancelled 05/07 05/07 0345 0100 Blood Gas pH (7.35 - 7.45 PH) 7.41 pCO2 (35 - 45 TORR) 24 L pO2 (80 - 100 TORR) 94 HCO3 (21 - 28 MEQ/L) 15 L ABG O2 Sat (Measured) (>96.0 %) 96.0 P-50 (Temp Corrected) N Carboxyhemoglobin (1.5 - 5.0 %) 0.7 L O2 Concentration % RA Miscellaneous Phlebotomy Draw Site LEFT BRACHIAL Urines Urinalysis LIGHT H Urine Color (YEL,AMB,STR) YEL Urine Clarity (CLEAR) CLEAR Urine pH (5.0 - 8.0) 6.0 Ur Specific [place] (1.001 - 1.035) 1.010 Urine Protein (NEG,<30 MG/DL) TRACE H Urine Ketones (NEG) 40 H Urine Nitrite (NEG) NEG Urine Bilirubin (NEG) NEG@ICTO Urine Urobilinogen (0.1 - 1.0 EU/dl) 1.0 Ur Leukocyte Esterase (NEG) NEG Ur Microscopic SEDIMENT EXAMINED Urine RBC (0 - 5 /HPF) 1-3 Ur Epithelial Cells (NONE,FEW) RARE Urine Mucus (FEW,NONE) RARE Urine Hemoglobin (NEG) TRACE-INTACT H Urine Glucose (N MG/DL) NEG 05/07 05/06 0100 2327 Chemistry Sodium (137 - 145 mmol/L) 132 L Potassium (3.5 - 5.1 mmol/L) 2.1 *L Chloride (98 - 107 mmol/L) 76 L Carbon Dioxide (22 - 30 mmol/L) 22 Anion Gap (5 - 16) 34 H BUN (9 - 20 mg/dL) 26 H Creatinine (0.7 - 1.2 mg/dL) 1.6 H Estimated GFR (>60 ml/min) 45 L BUN/Creatinine Ratio (7 - 25 %) 16.3 Glucose (65 - 99 mg/dL) 174 H Serum Osmolality (285 - 295 MOSM/KG) 307 H Lactic Acid (0.7 - 2.1 mmol/L) 2.3 H Calcium (8.4 - 10.2 mg/dL) 8.5 Magnesium (1.6 - 2.3 mg/dL) 1.3 L Total Bilirubin (0.2 - 1.3 mg/dL) 1.6 H AST (17 - 59 U/L) 29 ALT (21 - 72 U/L) 32 Alkaline Phosphatase (< 127 U/L) 80 Troponin I (<0.11 ng/ml) 0.03 Total Protein (6.3 - 8.2 g/dL) 7.3 Albumin (3.5 - 5.0 g/dL) 4.4 Globulin (1.9 - 4.2 gm/dL) 2.9 Albumin/Globulin Ratio (1.1 - 2.2 %) 1.5 Hematology CBC w Diff NO MAN DIFF REQ WBC (4.8 - 10.8 /CUMM) 11.4 H RBC (4.70 - 6.10 /CUMM) 4.26 L Hgb (14.0 - 18.0 G/DL) 13.1 L Hct (42 - 52 %) 38.0 L MCV (80.0 - 94.0 FL) 89.2 MCH (27.0 - 31.0 PG) 30.9 RDW (11.5 - 14.5 %) 12.6 Plt Count (130 - 400 /CUMM) 193 MPV (7.4 - 10.4 FL) 8.0 Gran % (42.2 - 75.2 %) 85.9 H Lymphocytes % (20.5 - 51.1 %) 7.6 L Monocytes % (1.7 - 9.3 %) 6.2 Eosinophils % (0 - 5 %) 0.1 Basophils % (0.0 - 2.0 %) 0.2 Absolute Granulocytes (1.4 - 6.5 /CUMM) 9.8 H Absolute Lymphocytes (1.2 - 3.4 /CUMM) 0.9 L Absolute Monocytes (0.10 - 0.60 /CUMM) 0.7 H Absolute Eosinophils (0.0 - 0.7 /CUMM) 0 Absolute Basophils (0.0 - 0.2 /CUMM) 0 PUBS MCHC (33.0 - 37.0 G/DL) 34.6 Toxicology Urine Opiates Screen (>2000 NG/ML) 402.00 Methadone Screen (>300 NG/ML) 51 Barbiturate Screen (>200 NG/ML) < 60 Ur Phencyclidine Scrn (>25 NG/ML) < 6.00 Amphetamines Screen (>1000 NG/ML) < 100 U Benzodiazepines Scrn (>200 NG/ML) < 85 Urine Cocaine Screen (>300 NG/ML) < 50 Urine Cannabis Screen (>50 NG/ML) < 5.00 Serum Alcohol (<10 MG/DL) < 10.0 Urines Urine Osmolality (300 - 1000 MOSM/KG) 237 L Ur Random Creatinine (mg/dL) 56.3 Ur Random Sodium (30 - 90 mmol/L) 18 L Ur Random Potassium (mmol/L) 6.5 Fraction Sodium Excret (<1% %) 0.4 Diagnostic Data EKG Results EKG tracing is independently reviewed, and reveals normal sinus rhythm at 68 with left atrial abnormality, right bundle branch block, and left posterior fascicular block. There is ST depression which is more prominent compared to the prior EKG. CXR Results Comminuted fracture of the proximal right humerus. No acute cardiopulmonary findings. Other Results Echocardiogram 12/19/15: 1. This was a technically very difficult and limited examination. 2. Mild to moderate aortic sclerosis is present with no valvualr stenosis or insufficiency. 3. Mitral leaflet thickening is present with anular calcification and minimal mitral insufficiency with mild left atrial enlargement. 4. There is no significant pericardial fluid present. 5. The left ventricualr chamber size and systolic function appear normal. 6. The right heart structures were not optimally assessed. Minimal tricuspid insufficiency is present. The RV systolic pressure could not be assessed on this study. Assessment/Plan Assessment/Plan The patient is a 56-year-old male with history of chronic HFpEF, possible right heart failure, and hypertension who is brought to the hospital after a fall with a right humerus fracture. He combines of recent lightheadedness and dizziness. He is to have hypotension and acute kidney injury, likely secondary to volume depletion exacerbated by diuretic therapy. He is noted to have significant hypokalemia, with potassium of 2.1 on admission which has increased to 3.0. He is noted to have EKG changes and nonsustained ventricular tachycardia, which are likely secondary to the hypokalemia. Recommendations: * Hold Lasix * IV fluid for volume depletion and acute kidney injury * Aggressive repletion of potassium to greater than 4.0 * Supplement magnesium to greater than 2.0. * Monitor on telemetry for further arrhythmias. * Repeat EKG. Consult Acknowledgment - Thank you for your consult request.
[2016-05-08] VITALS (7 sets, daily range): BP systolic 62–88; BP diastolic 0–60
--- NOTE | 2016-05-08 00:48 | NUR ---
LATE NURSING ENTRY: 05/07/161999 TM RECORDED 5 BEATS OF V-TACH, PATIENT DENIES PAIN, SOB, DENIES PALPITATIONS OR DISCOMFORT. REPORTED TO MD BENDER. WILL CONTINUE TO CLOSELY MONITOR.
--- NOTE | 2016-05-08 01:22 | NUR ---
LATE NURSING ENTRY: 05/07/16 1600 PATIENT BP 78/60, REPORTED TO MD REINIER STARR AND MD SANTOS. PATIENT DENIES PAIN, DENIES DISCOMFORT, DENIES LIGHTHEADNESS, NO DIZZINES. PATIENT PLACED IN [place] POSITION, WCTM. 05/07/16 1900 PATIENT BP 72/58 MD REINIER STARR AND MD SANTOS AWARE, PATIENT GIVEN BOLUS PER EMAR, WILL CONTINUE TO CLOSELY MONITOR.
--- NOTE | 2016-05-08 01:23 | Event Note ---
Event Note Event Note: Notified that the patient was running hypotensive, nursing team concerned about patient's current pressure of 60 over Doppler. Came to the patient's bedside and checked blood pressure 62/40. Patient was given a bolus of 5 mL normal saline. His rate of fluids was also incresed to 150ml/hr. Stat labs were ordered on him. BEP, lactic acid, 2.40 AM Patient Comfortable in Bed resting. 4.45 AM BP 86/57. Will Sign out to the AM team. Resident Made Aware. Will Sign out to the AM team. Resident Made Aware.
--- NOTE | 2016-05-08 05:44 | NUR ---
PT'S BP @ 0102 62/0 BY DOPPLER. MDS CONSTANTINE AND CHRISTINE AWARE. 500 ML BOLUS ORDERED AND GIVEN @ 0130 WHILE CURRENTLY FLUIDS RUNNING AT 125 UPPED TO 150. UPON FINISHING BOLUS, PT'S BP 65/42. BOTH MDS NOTIFIED. BP TAKEN AGAIN AT 0355 - 78/52. BP TAKEN AT 0445 86/57. WILL CONTINUE TO MONITOR
[2016-05-08 07:54] LABS: ABSOLUTE BASOPHIL COUNT 0 /CUMM (0.0-0.2); ABSOLUTE EOSINOPHIL COUNT 0 /CUMM (0.0-0.7); ABSOLUTE GRANULOCYTE CT 3.5 /CUMM (1.4-6.5); ABSOLUTE LYMPH COUNT 0.8 /CUMM (1.2-3.4); ABSOLUTE MONOCYTE COUNT 0.3 /CUMM (0.10-0.60); WHITE BLOOD CELL COUNT 4.7 /CUMM (4.8-10.8)
[2016-05-08 08:05] LABS: BASOPHIL % 0.3 % (0.0-2.0); HEMATOCRIT 24.3 % (42-52); MEAN CORPUSCULAR HGB CONC 34.8 G/DL (33.0-37.0); MEAN CORPUSCULAR VOLUME 89.2 FL (80.0-94.0); MEAN PLATELET VOLUME 7.7 FL (7.4-10.4); RBC DISTRIBUTION WIDTH 12.9 % (11.5-14.5); RED BLOOD CELL CT 2.73 /CUMM (4.70-6.10)
--- NOTE | 2016-05-08 08:16 | PN- Housestaff ---
"KWAME GRUBBS 05/08/16 0816: Subjective Follow-up For: Electrolyte disturbance Right humerus fracture Subjective: Patient seen and examined today. He has been hypotensive last night and this am althougjh his pulses are good. Attendings aware and it is reported that patient blood pressure stays low for most of the time. Patint's IV fluid rate has been decreased. He reports of discomfort in his right arm. Review of Systems Constitutional: Reports: see HPI. Objective Last 24 Hrs of Vital Signs/I&O Vital Signs Date Time Temp Pulse Resp B/P Pulse O2 O2 Flow FiO2 Ox Delivery Rate 05/08 0811 98.5 98 18 92 Room Air 05/08 0800 98 Room Air 05/08 0445 86/57 05/08 0355 78/52 05/08 0235 65/42 05/08 0108 98.4 98 20 88/54 93 05/08 0102 96 62/0 05/08 0000 Room Air 05/07 2230 96 20 85/60 95 Room Air 05/07 1857 92 72/58 05/07 1647 86 80/52 05/07 1633 98.6 81 20 72/52 84 Room Air Intake & Output 05/08 1600 05/08 0800 05/08 0000 Intake Total 2250 1910 2055 Output Total 950 1400 1275 Balance 1300 510 780 Intake, IV 7628 505 6514 Intake, Oral 600 960 680 Number 0 Bowel Movements Output, Urine 950 1400 1275 Physical Exam General Appearance: Alert, Oriented X3, Cooperative, No Acute Distress Skin: No Rashes, No Breakdown HEENT: Atraumatic Neck: Supple Cardiovascular: Regular Rate, Normal S1, Normal S2 Lungs: Clear to Auscultation, Normal Air Movement Abdomen: Soft, No Tenderness Extremities: right arm sling in place. , distal right radius pulse intact Assessment/Plan Assessment: Patient is 56 y/o M with PMHx of right-sided heart failure, T2DM c/b peripheral neuropathy and alcohol abuse who presents after a near syncopal episode, with hypotension, hypokalemia and hypomagnesemia on admission. Problem list assessment and plan Near syncope/syncope: Most likely secondary to orthostatic hypotension in the setting of dehydration. Blood pressure has been on the low side, overnight went down to 60 systolic, in am remained in 80s. Attendings and dr. Nausbum aware. No plan for ICU transfer yet as patient is asymptomatic. No tele events overnight. Will continue to monitor. KAM: Cr 1.6 on admission. ! on 05/08, usg kidneys d/cd now. Baseline creatinine normal - 0.8 in December 2015. Continue to avoid nephrotoxic medications. Anion gap metabolic acidosis: ABG 7.41|24|94|15 and anion gap was initially markedly elevated to 34 on admission. Closed to 10 on 05/08/16. Associated with concomitant metabolic alkalosis most likely secondary to volume contraction and compensatory respiratory alkalosis. Anion gap metabolic acidosis most likely secondary to alcoholic ketoacidosis. Lactic acid was only mildly elevated at 2.3. Nephrology consult service on board. Will cntinue to monitor. Right humeral fracture: S/p fall. XR R shoulder with fracture of the right proximal humeral shaft. Ortho consult service on board. Will obtain CT right humerus per ortho recommendations and f/up. Right arm sling in place. Vicodin 1 tab PO Q6H PRN for moderate pain (scale 4-6) and morphine 2 mg IV Q4H PRN for severe pain (scale 7-10). Hyponatremia: Na 132 on admission. Differential includes dehydration, beer potomania, psychogenic polydipsia and SIADH. Serum osmolality is increased and urine is dilute. Control Systems Drafting Officer on board #Hypokalemia: Severe hypokalemia with K of 2.1 on admission and EKG changes including T wave inversions and prominent U waves. History of chronic hypokalemia likely secondary to alcohol abuse. Takes potassium bicarbonate supplements, 25 mEq daily. * Replete with 10 mEq of IV K x 3 and 40 mEq of PO K. * IVF with 40 mEq of KCl in NS @ 125 cc/hr. * Re-check BMP in the AM. Hypomagnesemia: Magnesium 1.3 on admission. Likely secondary to alcohol abuse. Repleted and will continue to monitor T2DM: Takes metformin 500 mg PO QD and pioglitazone 30 mg PO QD at home. Holding oral hypoglycemic agents while inpatient. Accu-checks and low dose Novolog SSI TIDAC. Alcohol abuse: Admits to drinking several vodka drinks per day. On CIWA protocol to monitor for signs/symptoms of alcohol withdrawal. PO folic acid, thiamine and MVI. CHF: Right heart failure most likely secondary to underlying COPD in the setting of significant smoking history. Most recent ECHO in November 2015 with LVEF of 55-60% but of poor quality and technically not adequate for the assessment of right heart function and pressures. Takes metoprolol 25 mg PO BID and furosemide 60 mg PO QD. No need to repeat ECHO at this time. Holding prior to admission metoprolol and furosemide in the setting of hypotension. Nicotine dependence: Currently smokes 1 PPD. Has smoked for about 40 years. Nicotine patch 21 mg administered. Insomnia: Continue home trazodone 50 mg PO QHS. Diet: Consistent carbohydrate with 2 g Na restriction DVT PPx: HSQ and ALPs CODE: FULL Problem List: 1. Type 2 diabetes mellitus 2. Hyponatremia 3. Hypomagnesemia 4. Hypokalemia Pain Ratin Pain Location: right arm Pain Goal: Pain 4 or less Pain Plan: TYLENOL PRN FOR PAIN Vicodin prn for pain Tomorrow's Labs & Rationales: cbc EMANI Johnson MD 05/08/16 1532: Attending MD Review Statement Attending Statement Attending MD Statement: examined this patient, discuss w/resident/PA/COSMETICS AND TOILETRIES SALESPERSON, agreed w/resident/PA/COSMETICS AND TOILETRIES SALESPERSON, reviewed EMR data (avail), discussed with nursing, reviewed images, amended to note Attending Assessment/Plan: Mr. Cintron was interviewed and examined. His EMR was reviewed. His essential complaint is that of pain at his fracture site. He denies chest pains, dyspnea, and palpitations. He denies lightheadedness. He remains afebrile with stable respiratory and heart rates. Blood pressure is now approximately 90 systolic. He is without postural signs. Oxygen saturation is stable on room air. His lungs are clear to auscultation. Cardiovascular exam reveals a regular rate and rhythm. His abdomen has active bowel sounds and is soft and nontender. Extremities show trace edema. His potassium level has now increased to 3.1. He continues on potassium and phosphorus supplementation. He is also being continued on IV fluids. We are awaiting orthopedic input. We continue to hold his antihypertensives. Have placed him on a nicotine patch and encourage him to discontinue smoking. We continue to observe for possible ethanol withdrawal."
[2016-05-08 08:33] LABS: PLATELET COUNT 91 /CUMM (130-400)
[2016-05-08] MEDS ORDERED: GABAPENTIN300 M2 PO (08:35)
--- NOTE | 2016-05-08 09:00 | NUR ---
Patient's BP remains 80/60 manually- BP only to be obtained with his left arm due to his right humerous fracture. Patient stated to this RN that his BP does run significantly lower on the left side and he has seen Dr. Forbes as an outpatient. This was confirmed with pts daughter Maryanne. Radial pulses poitive however slightly diminished to the left- Strong pedal pulses bilaterally. Patient currently denies any dizziness or lightheadedness. Dr. Hadley was notified of this- No further interventions at this time. IVF continue to infuse at 150mls/hr per order. Will continue to closely monitor patient.
--- NOTE | 2016-05-08 10:49 | PN- Cardiology ---
Subjective Subjective: The patient reports that he is feeling well. He denies any current lightheadedness or dizziness. He was noted to be hypotensive overnight with systolic blood pressure in the 60s. His systolic blood pressure has now improved to the 80s. No chest pain. No palpitations. No diaphoresis. Objective Vital Signs and I&Os Vital Signs Date Time Temp Pulse Resp B/P Pulse O2 O2 Flow FiO2 Ox Delivery Rate 05/08 08 98.5 98 18 92 Room Air 05/08 0445 86/57 05/08 0355 78/52 05/08 0235 65/42 05/08 0108 98.4 98 20 88/54 93 05/08 0102 96 62/0 05/08 0000 Room Air 05/07 2230 96 20 85/60 95 Room Air 05/07 1857 92 72/58 05/07 1647 86 80/52 05/07 1633 98.6 81 20 72/52 84 Room Air 05/07 1614 83 78/60 05/07 1600 95 Room Air Intake & Output 05/08 1600 05/08 0800 05/08 0000 05/07 1600 05/07 0800 05/07 0000 Intake Total 1910 2055 2375 2920 1000 Output Total 1400 1275 1050 800 300 Balance 075 414 8928 2120 700 Intake, IV 950 1375 1075 2800 1000 Intake, Oral 621 589 4071 120 Number 0 Bowel Movements Output, Urine 1400 1275 1050 800 300 Patient 195 lb 195 lb Weight Physical Exam: Gen: The patient is in no acute distress HEENT: Normal nose, ears, and oropharynx. Pupils equal bilaterally. Conjunctiva normal. Neck: Supple with no JVD, no masses, and no thyromegaly Lungs: Clear to auscultation with normal respiratory effort Heart: RRR, S1, S2, no murmurs. No peripheral edema, 2+ pulses in the lower extremities bilaterally Abdomen: Soft, nontender, no masses. No hepatomegaly. No splenomegaly Extremities: No clubbing or cyanosis. Normal muscle strength in the upper and lower extremities Skin: Normal skin turgor with no skin ulcers or lesions noted. Current Medications: Current Medications Sig/Williams Start time Last Medication Dose Route Stop Time Status Admin Acetaminophen/ 1 TAB Q6P PRN 05/07 0315 AC 05/08 Hydrocodone Bitart PO 0739 Aspirin 81 MG DAILY 05/07 1000 AC 05/08 PO 0907 Atorvastatin Calcium 20 MG DAILY 05/07 1000 AC 05/07 PO 1107 Duloxetine HCl 30 MG DAILY 05/07 1000 AC 05/08 PO 0907 Ferrous Sulfate 325 MG DAILY 05/07 1000 AC 05/08 PO 0907 Folic Acid 1 MG DAILY 05/07 1000 AC 05/08 PO 0907 Heparin Sodium 5,000 UNIT Q8 05/07 0600 AC 05/08 (Porcine) SC 0555 Insulin Aspart 0 TIDAC 05/07 0800 AC 05/08 SC 0800 Lorazepam 1 MG Q2P PRN 05/07 0315 AC PO Magnesium Sulfate 1 GM Q2H 05/07 2000 DC 05/07 Dextrose/Water 100 ML IV 05/07 2359 2252 Morphine Sulfate 1 MG Q4P PRN 05/07 1600 AC 05/07 IV 2210 Morphine Sulfate 2 MG Q4P PRN 05/07 0315 DC 05/07 IV 1420 Multivitamins 1 TAB DAILY 05/07 1000 AC 05/08 PO 0907 Nicotine 21 MG DAILY 05/07 1000 AC 05/08 TOP 0905 Omeprazole 40 MG DAILY AC 05/07 0700 AC 05/08 PO 0553 Phosphate 250 MG PC AND AT BEDTIME 05/07 1800 AC 05/08 PO 0905 Potassium Chloride 60 MEQ ONCE ONE 05/08 0930 DC PO 05/08 0931 Potassium Chloride 10 MEQ Q1H 05/08 0500 DC 05/08 IV 05/08 0601 0904 Potassium Chloride 40 MEQ Q6H 05/08 0130 AC 05/08 Sodium Chloride 1,000 ML IV 0740 Potassium Chloride 20 MEQ BID 05/07 1000 AC 05/08 PO 0908 Potassium Chloride 40 MEQ Q8H 05/07 0245 DC 05/08 Sodium Chloride 1,000 ML IV 0033 Potassium Phosphate 15 mMol ONE ONE 05/08 0930 AC Sodium Chloride 250 ML IV 05/08 1333 Sodium Chloride 500 ML BOLUS ONE 05/08 0130 DC 05/08 IV 05/08 0229 0147 Sodium Chloride 1,000 ML BOLUS ONE 05/07 1915 DC 05/07 IV 05/07 2114 1910 Thiamine HCl 100 MG DAILY 05/07 1000 AC 05/08 PO 0907 Trazodone HCl 50 MG QPM 05/07 2200 AC 05/07 PO 2209 Results Last 48 Hrs of Labs/Mics: Laboratory Tests 05/08/16 0700: Lactic Acid 0.6 L 05/08/16 0700: Anion Gap 13, Estimated GFR > 60, BUN/Creatinine Ratio 10.0, Phosphorus 0.7 *L, Magnesium 1.8, Vitamin B12 467, Folate > 20.0 H, CBC w Diff NO MAN DIFF REQ, RBC 2.73 L, MCV 89.2, MCH 31.0, RDW 12.9, MPV 7.7, Gran % 75.0, Lymphocytes % 17.6 L, Monocytes % 6.1, Eosinophils % 1.0, Basophils % 0.3, Absolute Granulocytes 3.5, Absolute Lymphocytes 0.8 L, Absolute Monocytes 0.3, Absolute Eosinophils 0, Absolute Basophils 0, PUBS MCHC 34.8 05/08/16 0405: Lactic Acid Cancelled 05/08/16 0129: Anion Gap 13, Estimated GFR > 60, BUN/Creatinine Ratio 11.8, Lactic Acid 0.7, Cortisol PM Sample 9.6 05/08/16 0124: Sodium Cancelled, Potassium Cancelled, Chloride Cancelled, Carbon Dioxide Cancelled, Anion Gap Cancelled, BUN Cancelled, Creatinine Cancelled, BUN/ Creatinine Ratio Cancelled, Lactic Acid Cancelled 05/08/16 0120: Cortisol PM Sample Cancelled 05/07/16 1705: 05/07/16 1705: Magnesium 1.6 05/07/16 0736: Anion Gap 19 H, Estimated GFR 57 L, BUN/Creatinine Ratio 15.4, Lactic Acid 0.6 L, Phosphorus 1.8 L, Magnesium 1.8, CBC w Diff NO MAN DIFF REQ, RBC 2.95 L, MCV 89.2, MCH 31.2 H, RDW 13.0, MPV 7.6, Gran % 77.2 H, Lymphocytes % 15.3 L, Monocytes % 7.2, Eosinophils % 0.2, Basophils % 0.1, Absolute Granulocytes 4.5, Absolute Lymphocytes 0.9 L, Absolute Monocytes 0.4, Absolute Eosinophils 0, Absolute Basophils 0, PUBS MCHC 35.0, Ref Lab Test Result Cancelled 05/07/16 0345: pH 7.41, pCO2 24 L, pO2 94, HCO3 15 L, ABG O2 Sat (Measured) 96.0, P-50 (Temp Corrected) N, Carboxyhemoglobin 0.7 L, O2 Concentration % RA, Phlebotomy Draw Site LEFT BRACHIAL 05/07/16 0100: Urinalysis LIGHT H, Urine Color YEL, Urine Clarity CLEAR, Urine pH 6.0, Ur Specific [place] 1.010, Urine Protein TRACE H, Urine Ketones 40 H, Urine Nitrite NEG, Urine Bilirubin NEG@ICTO, Urine Urobilinogen 1.0, Ur Leukocyte Esterase NEG, Ur Microscopic SEDIMENT EXAMINED, Urine RBC 1-3, Ur Epithelial Cells RARE, Urine Mucus RARE, Urine Hemoglobin TRACE-INTACT H, Urine Glucose NEG 05/07/16 0100: Urine Opiates Screen 402.00, Methadone Screen 51, Barbiturate Screen < 60, Ur Phencyclidine Scrn < 6.00, Amphetamines Screen < 100, U Benzodiazepines Scrn < 85, Urine Cocaine Screen < 50, Urine Cannabis Screen < 5.00, Urine Osmolality 237 L, Ur Random Creatinine 56.3, Ur Random Sodium 18 L, Ur Random Potassium 6.5, Fraction Sodium Excret 0.4 05/06/16 2327: Anion Gap 34 H, Estimated GFR 45 L, BUN/Creatinine Ratio 16.3, Glucose 174 H, Serum Osmolality 307 H, Lactic Acid 2.3 H, Calcium 8.5, Magnesium 1.3 L, Total Bilirubin 1.6 H, AST 29, ALT 32, Alkaline Phosphatase 80, Troponin I 0.03 , Total Protein 7.3, Albumin 4.4, Globulin 2.9, Albumin/Globulin Ratio 1.5, CBC w Diff NO MAN DIFF REQ, RBC 4.26 L, MCV 89.2, MCH 30.9, RDW 12.6, MPV 8.0, Gran % 85.9 H, Lymphocytes % 7.6 L, Monocytes % 6.2, Eosinophils % 0.1, Basophils % 0.2, Absolute Granulocytes 9.8 H, Absolute Lymphocytes 0.9 L, Absolute Monocytes 0.7 H, Absolute Eosinophils 0, Absolute Basophils 0, PUBS MCHC 34.6, Serum Alcohol < 10.0 Assessment/Plan Assessment/Plan Assessment: 1. Chronic HFpEF, stable 2. Syncope, likely secondary to volume to patient 3. Hypotension likely secondary to volume depletion 4. Acute kidney injury, improving 5. Hypokalemia, improving Plan: * Lasix on hold * Continue IV fluid * Check orthostatics * Supplement potassium to greater than 4.0 and magnesium to greater than 2.0 * Continue telemetry monitoring Continue telemetry? Yes
--- NOTE | 2016-05-08 14:00 | NUR ---
Dr. Garrett and Dr. Mata in to see patient- Notified that BP remains to be 80/58 manually (left arm)- orthostatics were done at this time however only in a lying then sitting position and were negative. Dr. Garrett notified. POC discussed which included bloodwork and repleting electrolytes- K-phos bolus infusing at this time and repeat lytes to be drawn after infusion complete per Dr. Garrett- IVF decreased to 100ml/hr per Dr. Mata's recommendations. Awaiting ortho. Will continue to closely monitor patient.
--- NOTE | 2016-05-08 15:09 | PN- Nephrology ---
Assessment/Plan Assessment: 1. KAM - resolving 2. Hypokalemia - improving 3. Hypophosphatemia 4. Hypotension 5. Comminuted, mildly displaced fracture of the proximal humeral shaft Suggestion: 1. Would decrease IV rate to 100 mL per hour and reassess later today and tomorrow morning 2. Repeat chemistries this afternoon and this evening 3. Further potassium and phosphorus supplementation as needed; goal is serum potassium over 3.5 and serum phosphorus over 2.0 4. Ortho follow-up Subjective Subjective: Patient remains weak. He does however feel better in general. Being treated for hypokalemia and hypophosphatemia with both parenteral and oral supplements. Renal action has essentially normalized. Objective Vital Signs and I&Os Vital Signs Date Time Temp Pulse Resp B/P Pulse O2 O2 Flow FiO2 Ox Delivery Rate 05/08 0811 98.5 98 18 92 Room Air 05/08 0800 98 Room Air 05/08 0445 86/57 05/08 0355 78/52 05/08 0235 65/42 05/08 0108 98.4 98 20 88/54 93 05/08 0102 96 62/0 05/08 0000 Room Air 05/07 2230 96 20 85/60 95 Room Air 05/07 1857 92 72/58 05/07 1647 86 80/52 05/07 1633 98.6 81 20 72/52 84 Room Air 05/07 1614 83 78/60 05/07 1600 95 Room Air Intake & Output 05/08 1600 05/08 0400 05/07 1600 05/07 0400 05/06 1600 05/06 0400 Intake Total 1910 2055 3295 3000 Output Total 1400 1275 1850 300 Balance 932 419 8684 2700 Intake, IV 950 1375 1875 3000 Intake, Oral 366 149 1359 Number 0 Bowel Movements Output, Urine 1400 1275 1850 300 Patient 195 lb Weight Physical Exam: General: Well-developed white male in NAD Skin: Hyperpigmentation on the right side of his face, no jaundice HEENT: Conjunctivae pale, sclerae anicteric, mucous membranes moist Neck: Without masses or thyromegaly, no supraclavicular or cervical adenopathy Chest: Clear to P&A Heart: Regular rate and rhythm without S3 or rub Abdomen: Soft and nontender without palpable masses or organomegaly Extremities: Right shoulder in an immobilizer/sling; no cyanosis or pitting edema Neuro: No focal findings, no asterixis or myoclonus Current Medications: Current Medications Sig/Williams Start time Last Medication Dose Route Stop Time Status Admin Acetaminophen/ 1 TAB Q6P PRN 05/07 0315 AC 05/08 Hydrocodone Bitart PO 0739 Aspirin 81 MG DAILY 05/07 1000 AC 05/08 PO 0907 Atorvastatin Calcium 20 MG DAILY 05/07 1000 AC 05/07 PO 1107 Duloxetine HCl 30 MG DAILY 05/07 1000 AC 05/08 PO 0907 Ferrous Sulfate 325 MG DAILY 05/07 1000 AC 05/08 PO 0907 Folic Acid 1 MG DAILY 05/07 1000 AC 05/08 PO 0907 Heparin Sodium 5,000 UNIT Q8 05/07 0600 AC 05/08 (Porcine) SC 1358 Insulin Aspart 0 TIDAC 05/07 0800 AC 05/08 SC 1259 Lorazepam 1 MG Q2P PRN 05/07 0315 AC PO Magnesium Sulfate 1 GM Q2H 05/07 2000 DC 05/07 Dextrose/Water 100 ML IV 05/07 2359 2252 Morphine Sulfate 1 MG Q4P PRN 05/07 1600 AC 05/07 IV 2210 Morphine Sulfate 2 MG Q4P PRN 05/07 0315 DC 05/07 IV 1420 Multivitamins 1 TAB DAILY 05/07 1000 AC 05/08 PO 0907 Nicotine 21 MG DAILY 05/07 1000 AC 05/08 TOP 0905 Omeprazole 40 MG DAILY AC 05/07 0700 AC 05/08 PO 0553 Phosphate 250 MG PC AND AT BEDTIME 05/07 1800 AC 05/08 PO 1258 Potassium Chloride 60 MEQ ONCE ONE 05/08 0930 DC PO 05/08 0931 Potassium Chloride 10 MEQ Q1H 05/08 0500 DC 05/08 IV 05/08 0601 0904 Potassium Chloride 40 MEQ Q6H 05/08 0130 AC 05/08 Sodium Chloride 1,000 ML IV 1434 Potassium Chloride 20 MEQ BID 05/07 1000 AC 05/08 PO 0908 Potassium Chloride 40 MEQ Q8H 05/07 0245 DC 05/08 Sodium Chloride 1,000 ML IV 0033 Potassium Phosphate 15 mMol ONE ONE 05/08 0930 DC 05/08 Sodium Chloride 250 ML IV 05/08 1333 1119 Sodium Chloride 500 ML BOLUS ONE 05/08 0130 DC 05/08 IV 05/08 0229 0147 Sodium Chloride 1,000 ML BOLUS ONE 05/07 1914 DC 05/07 IV 05/07 Thiamine HCl 100 MG DAILY 05/07 1000 AC 05/08 PO 09 Trazodone HCl 50 MG QPM 05/07 2199 AC 05/07 PO 2208 Results Pertinent Lab Results: Laboratory Tests 05/08 05/08 05/08 0700 0700 0405 Chemistry Sodium (137 - 145 mmol/L) 134 L Potassium (3.5 - 5.1 mmol/L) 3.1 L Chloride (98 - 107 mmol/L) 99 Carbon Dioxide (22 - 30 mmol/L) 23 Anion Gap (5 - 16) 13 BUN (9 - 20 mg/dL) 10 Creatinine (0.7 - 1.2 mg/dL) 1.0 Estimated GFR (>60 ml/min) > 60 BUN/Creatinine Ratio (7 - 25 %) 10.0 Lactic Acid (0.7 - 2.1 mmol/L) 0.6 L Cancelled Phosphorus (2.5 - 4.5 mg/dL) 0.7 *L Magnesium (1.6 - 2.3 mg/dL) 1.8 Vitamin B12 (239 - 931 pg/mL) 467 Folate (2.76 - 20.0 ng/mL) > 20.0 H Hematology CBC w Diff NO MAN DIFF REQ WBC (4.8 - 10.8 /CUMM) 4.7 L RBC (4.70 - 6.10 /CUMM) 2.73 L Hgb (14.0 - 18.0 G/DL) 8.5 L Hct (42 - 52 %) 24.3 L MCV (80.0 - 94.0 FL) 89.2 MCH (27.0 - 31.0 PG) 31.0 RDW (11.5 - 14.5 %) 12.9 Plt Count (130 - 400 /CUMM) 91 L MPV (7.4 - 10.4 FL) 7.7 Gran % (42.2 - 75.2 %) 75.0 Lymphocytes % (20.5 - 51.1 %) 17.6 L Monocytes % (1.7 - 9.3 %) 6.1 Eosinophils % (0 - 5 %) 1.0 Basophils % (0.0 - 2.0 %) 0.3 Absolute Granulocytes (1.4 - 6.5 /CUMM) 3.5 Absolute Lymphocytes (1.2 - 3.4 /CUMM) 0.8 L Absolute Monocytes (0.10 - 0.60 /CUMM) 0.3 Absolute Eosinophils (0.0 - 0.7 /CUMM) 0 Absolute Basophils (0.0 - 0.2 /CUMM) 0 PUBS MCHC (33.0 - 37.0 G/DL) 34.8 05/08 05/08 05/08 05/07 05/07 0129 0124 0120 1705 1705 Chemistry Sodium (137 - 145 mmol/L) 134 L Cancelled Potassium (3.5 - 5.1 mmol/L) 3.0 L Cancelled 3.0 L Chloride (98 - 107 mmol/L) 97 L Cancelled Carbon Dioxide (22 - 30 mmol/L) 24 Cancelled Anion Gap (5 - 16) 13 Cancelled BUN (9 - 20 mg/dL) 13 Cancelled Creatinine (0.7 - 1.2 mg/dL) 1.1 Cancelled Estimated GFR (>60 ml/min) > 60 BUN/Creatinine Ratio (7 - 25 %) 11.8 Cancelled Lactic Acid (0.7 - 2.1 mmol/L) 0.7 Cancelled Magnesium (1.6 - 2.3 mg/dL) 1.6 Cortisol PM Sample (1.7 - 14.1) 9.6 Cancelled 05/07 05/07 0736 0345 Blood Gas pH (7.35 - 7.45 PH) 7.41 pCO2 (35 - 45 TORR) 24 L pO2 (80 - 100 TORR) 94 HCO3 (21 - 28 MEQ/L) 15 L ABG O2 Sat (Measured) (>96.0 %) 96.0 P-50 (Temp Corrected) N Carboxyhemoglobin (1.5 - 5.0 %) 0.7 L O2 Concentration % RA Chemistry Sodium (137 - 145 mmol/L) 132 L Potassium (3.5 - 5.1 mmol/L) 2.6 *L Chloride (98 - 107 mmol/L) 93 L Carbon Dioxide (22 - 30 mmol/L) 20 L Anion Gap (5 - 16) 19 H BUN (9 - 20 mg/dL) 20 Creatinine (0.7 - 1.2 mg/dL) 1.3 H Estimated GFR (>60 ml/min) 57 L BUN/Creatinine Ratio (7 - 25 %) 15.4 Lactic Acid (0.7 - 2.1 mmol/L) 0.6 L Phosphorus (2.5 - 4.5 mg/dL) 1.8 L Magnesium (1.6 - 2.3 mg/dL) 1.8 Hematology CBC w Diff NO MAN DIFF REQ WBC (4.8 - 10.8 /CUMM) 5.8 RBC (4.70 - 6.10 /CUMM) 2.95 L Hgb (14.0 - 18.0 G/DL) 9.2 L Hct (42 - 52 %) 26.3 L MCV (80.0 - 94.0 FL) 89.2 MCH (27.0 - 31.0 PG) 31.2 H RDW (11.5 - 14.5 %) 13.0 Plt Count (130 - 400 /CUMM) 116 L MPV (7.4 - 10.4 FL) 7.6 Gran % (42.2 - 75.2 %) 77.2 H Lymphocytes % (20.5 - 51.1 %) 15.3 L Monocytes % (1.7 - 9.3 %) 7.2 Eosinophils % (0 - 5 %) 0.2 Basophils % (0.0 - 2.0 %) 0.1 Absolute Granulocytes (1.4 - 6.5 /CUMM) 4.5 Absolute Lymphocytes (1.2 - 3.4 /CUMM) 0.9 L Absolute Monocytes (0.10 - 0.60 /CUMM) 0.4 Absolute Eosinophils (0.0 - 0.7 /CUMM) 0 Absolute Basophils (0.0 - 0.2 /CUMM) 0 PUBS MCHC (33.0 - 37.0 G/DL) 35.0 Miscellaneous Ref Lab Test Result Cancelled Phlebotomy Draw Site LEFT BRACHIAL 05/07 05/07 0100 0100 Toxicology Urine Opiates Screen (>2000 NG/ML) 402.00 Methadone Screen (>300 NG/ML) 51 Barbiturate Screen (>200 NG/ML) < 60 Ur Phencyclidine Scrn (>25 NG/ML) < 6.00 Amphetamines Screen (>1000 NG/ML) < 100 U Benzodiazepines Scrn (>200 NG/ML) < 85 Urine Cocaine Screen (>300 NG/ML) < 50 Urine Cannabis Screen (>50 NG/ML) < 5.00 Urines Urinalysis LIGHT H Urine Color (YEL,AMB,STR) YEL Urine Clarity (CLEAR) CLEAR Urine pH (5.0 - 8.0) 6.0 Ur Specific [place] (1.001 - 1.035) 1.010 Urine Protein (NEG,<30 MG/DL) TRACE H Urine Ketones (NEG) 40 H Urine Nitrite (NEG) NEG Urine Bilirubin (NEG) NEG@ICTO Urine Urobilinogen (0.1 - 1.0 EU/dl) 1.0 Ur Leukocyte Esterase (NEG) NEG Ur Microscopic SEDIMENT EXAMINED Urine RBC (0 - 5 /HPF) 1-3 Ur Epithelial Cells (NONE,FEW) RARE Urine Mucus (FEW,NONE) RARE Urine Hemoglobin (NEG) TRACE-INTACT H Urine Osmolality (300 - 1000 MOSM/KG) 237 L Ur Random Creatinine (mg/dL) 56.3 Ur Random Sodium (30 - 90 mmol/L) 18 L Ur Random Potassium (mmol/L) 6.5 Fraction Sodium Excret (<1% %) 0.4 Urine Glucose (N MG/DL) NEG 05/06 2327 Chemistry Sodium (137 - 145 mmol/L) 132 L Potassium (3.5 - 5.1 mmol/L) 2.1 *L Chloride (98 - 107 mmol/L) 76 L Carbon Dioxide (22 - 30 mmol/L) 22 Anion Gap (5 - 16) 34 H BUN (9 - 20 mg/dL) 26 H Creatinine (0.7 - 1.2 mg/dL) 1.6 H Estimated GFR (>60 ml/min) 45 L BUN/Creatinine Ratio (7 - 25 %) 16.3 Glucose (65 - 99 mg/dL) 174 H Serum Osmolality (285 - 295 MOSM/KG) 307 H Lactic Acid (0.7 - 2.1 mmol/L) 2.3 H Calcium (8.4 - 10.2 mg/dL) 8.5 Magnesium (1.6 - 2.3 mg/dL) 1.3 L Total Bilirubin (0.2 - 1.3 mg/dL) 1.6 H AST (17 - 59 U/L) 29 ALT (21 - 72 U/L) 32 Alkaline Phosphatase (< 127 U/L) 80 Troponin I (<0.11 ng/ml) 0.03 Total Protein (6.3 - 8.2 g/dL) 7.3 Albumin (3.5 - 5.0 g/dL) 4.4 Globulin (1.9 - 4.2 gm/dL) 2.9 Albumin/Globulin Ratio (1.1 - 2.2 %) 1.5 Hematology CBC w Diff NO MAN DIFF REQ WBC (4.8 - 10.8 /CUMM) 11.4 H RBC (4.70 - 6.10 /CUMM) 4.26 L Hgb (14.0 - 18.0 G/DL) 13.1 L Hct (42 - 52 %) 38.0 L MCV (80.0 - 94.0 FL) 89.2 MCH (27.0 - 31.0 PG) 30.9 RDW (11.5 - 14.5 %) 12.6 Plt Count (130 - 400 /CUMM) 193 MPV (7.4 - 10.4 FL) 8.0 Gran % (42.2 - 75.2 %) 85.9 H Lymphocytes % (20.5 - 51.1 %) 7.6 L Monocytes % (1.7 - 9.3 %) 6.2 Eosinophils % (0 - 5 %) 0.1 Basophils % (0.0 - 2.0 %) 0.2 Absolute Granulocytes (1.4 - 6.5 /CUMM) 9.8 H Absolute Lymphocytes (1.2 - 3.4 /CUMM) 0.9 L Absolute Monocytes (0.10 - 0.60 /CUMM) 0.7 H Absolute Eosinophils (0.0 - 0.7 /CUMM) 0 Absolute Basophils (0.0 - 0.2 /CUMM) 0 PUBS MCHC (33.0 - 37.0 G/DL) 34.6 Toxicology Serum Alcohol (<10 MG/DL) < 10.0
--- NOTE | 2016-05-08 16:17 | Event Note ---
Event Note Event Note: At 4.14 pm, a call was placed to [facility] to follow up regarding Orthoconsult that was placed last night as the patient was anxious of when would he be seen. The staff reported that was not informed of any consult therefore patient information for new consult was given to the answerings service.
--- NOTE | 2016-05-08 17:21 | Cons- Orthopedic ---
General Information and HPI Consulting Request Date of Consult: 05/08/16 Requested By: EMANI GALDAMEZ MD Reason for Consult: Right shoulder pain and humerus fracture Source of Information: patient Exam Limitations: no limitations History of Present Illness: Patient is a 56-year-old [id number] male who had a syncopal episode Sunday night and fell and landed on his right shoulder. He was seen in emergency room at [facility] and admitted for syncopal episode. Complaining of pain in the right shoulder the patient had x-rays which revealed a comminuted proximal humerus fracture. He seen [facility] for consultation. He still complaining of severe pain in the right shoulder. He denies numbness or tingling distally. Allergies/Medications Allergies: Coded Allergies: NO KNOWN ALLERGIES (12/17/15) Home Med List: Aspirin (Aspirin*) 81 MG TAB.CHEW 1 TAB PO DAILY HEART HEALTH . Atorvastatin Calcium (Lipitor) 20 MG TABLET 1 TAB PO DAILY CHOLESTEROL ( Reported) Duloxetine HCl 30 MG CAPSULE.DR 1 CAP PO DAILY MOOD (Reported) Esomeprazole (Nexium) 40 MG CAPSULE.DR 1 CAP PO DAILY GI (Reported) Ferrous Sulfate 325 MG TABLET.DR 1 TAB PO DAILY ANEMIA . Folic Acid 1 MG TABLET 1 TAB PO DAILY SUPPLEMENT Furosemide (Lasix) 20 MG TABLET 3 TAB PO DAILY hEART fAILURE (Reported) Gabapentin 300 MG CAPSULE 1 CAP PO TID PAIN (Reported) Metformin HCl 500 MG TABLET 1 TAB PO DAILY dm (Reported) Metoprolol Tartrate 25 MG TABLET 1 MG PO BID HEART . Oxycodone HCl/Acetaminophen (Oxycodone-Acetaminophen 5-325) 1 EACH TABLET 1 TAB PO BIDP PRN PAIN (Reported) Pioglitazone HCl (Actos) 30 MG TABLET 1 TAB PO DAILY DIABETES (Reported) Potassium Bicarbonate/Cit AC (Klor-Con-Ef 25 Meq Tab Eff) 25 MEQ TABLET.EFF 1 TAB PO DAILY SUPPLEMENT (Reported) Trazodone HCl 50 MG TABLET 1 TAB PO QPM SLEEP (Reported) Current Medications: Current Medications Sig/Williams Start time Last Medication Dose Route Stop Time Status Admin Acetaminophen/ 1 TAB Q6P PRN 05/07 0315 AC 05/08 Hydrocodone Bitart PO 1510 Aspirin 81 MG DAILY 05/07 1000 AC 05/08 PO 0907 Atorvastatin Calcium 20 MG DAILY@1700 05/08 1700 AC PO Atorvastatin Calcium 20 MG DAILY 05/07 1000 DC 05/07 PO 1107 Duloxetine HCl 30 MG DAILY 05/07 1000 AC 05/08 PO 0907 Ferrous Sulfate 325 MG DAILY 05/07 1000 AC 05/08 PO 0907 Folic Acid 1 MG DAILY 05/07 1000 AC 05/08 PO 0907 Heparin Sodium 5,000 UNIT Q8 05/07 0600 AC 05/08 (Porcine) SC 1358 Insulin Aspart 0 TIDAC 05/07 0800 AC 05/08 SC 1259 Lorazepam 1 MG Q2P PRN 05/07 0315 AC PO Magnesium Sulfate 1 GM Q2H 05/07 2000 DC 05/07 Dextrose/Water 100 ML IV 05/07 2359 2252 Morphine Sulfate 1 MG Q4P PRN 05/07 1600 AC 05/07 IV 2210 Multivitamins 1 TAB DAILY 05/07 1000 AC 05/08 PO 0907 Nicotine 21 MG DAILY 05/07 1000 AC 05/08 TOP 0905 Omeprazole 40 MG DAILY AC 05/07 0700 AC 05/08 PO 0553 Phosphate 250 MG PC AND AT BEDTIME 05/07 1800 AC 05/08 PO 1258 Potassium Chloride 60 MEQ ONCE ONE 05/08 0930 CAN PO 05/08 0931 Potassium Chloride 10 MEQ Q1H 05/08 0500 DC 05/08 IV 05/08 0601 0904 Potassium Chloride 40 MEQ Q6H 05/08 0130 AC 05/08 Sodium Chloride 1,000 ML IV 1434 Potassium Chloride 20 MEQ BID 05/07 1000 AC 05/08 PO 0908 Potassium Chloride 40 MEQ Q8H 05/07 0245 DC 05/08 Sodium Chloride 1,000 ML IV 0033 Potassium Phosphate 15 mMol ONE ONE 05/08 0930 DC 05/08 Sodium Chloride 250 ML IV 05/08 1333 1119 Sodium Chloride 500 ML BOLUS ONE 05/08 0130 DC 05/08 IV 05/08 0229 0147 Sodium Chloride 1,000 ML BOLUS ONE 05/07 1915 DC 05/07 IV 05/07 2114 1910 Thiamine HCl 100 MG DAILY 05/07 1000 AC 05/08 PO 0907 Trazodone HCl 50 MG QPM 05/07 2200 AC 05/07 PO 2209 Past History Medical History Blood Transfusion Hx: No Neurological: peripheral neuropathy EENT: allergies Cardiovascular: CHF (Right sided), hypertension, hyperlipidemia Respiratory: NONE Gastrointestinal: NONE Hepatic: NONE Renal: NONE Musculoskeletal: chronic back pain Psychiatric: alcohol dependence, anxiety Endocrine: diabetes Blood Disorders: NONE Cancer(s): NONE 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 Esophageal carcinoma Psychosocial History Where Do You Live? Home Who Do You Live With? self Services at Home: None Primary Language: Danish Smoking Status: Current Everyday Smoker (Smokes 1 PPD, Smoked 40 Yrs) ETOH Use: heavy use (couple of vodka drinks per day) Illicit Drug Use: denies illicit drug use Functional Ability ADLs Independent: dressing, eating, toileting, bathing. Ambulation: cane IADLs Independent: shopping, housework, finances, food prep, telephone, transportation , medication admin. Employment History Employment: Retired Profession/Employer: [employer] Exam & Diagnostic Data Vital Signs and I&O Vital Signs Date Time Temp Pulse Resp B/P Pulse O2 O2 Flow FiO2 Ox Delivery Rate 05/08 1530 98.2 97 20 82/58 94 Room Air 05/08 0811 98.5 98 18 92 Room Air 05/08 0800 98 Room Air 05/08 0445 86/57 05/08 0355 78/52 05/08 0235 65/42 05/08 0108 98.4 98 20 88/54 93 05/08 0102 96 62/0 05/08 0000 Room Air 05/07 2230 96 20 85/60 95 Room Air 05/07 1857 92 72/58 Intake & Output 05/08 1600 05/08 0800 05/08 0000 05/07 1600 05/07 0800 05/07 0000 Intake Total 2250 1910 2055 2375 2920 1000 Output Total 950 1400 1275 1050 800 300 Balance 1300 109 380 4800 2120 700 Intake, IV 9148 289 2606 1075 2800 1000 Intake, Oral 600 770 948 6197 120 Number 0 Bowel Movements Output, Urine 950 1400 1275 1050 800 300 Patient 195 lb 195 lb Weight On physical exam the patient's awake and alert and oriented to person place and time. Head and neck exam reveals a normocephalic atraumatic skull. Pupils are equal round reactive to light and accommodation. Extra ocular movements are intact. Neck is supple with no JVD. Lungs are clear bilaterally. Cardiovascular exam reveals S1 and S2. Abdomen soft nontender. Left upper extremity is within normal limits with full range of motion. Right upper chamois has swelling and ecchymosis about the right shoulder. There is pain with any motion of the right upper extremity. Sensation light touch is intact in the deltoid region as well as distally in the radial, ulnar, median nerve distributions. Motor strength is grossly intact distally. Bilateral lower extremity exam is within normal limits. One view of the right shoulder was performed which shows a comminuted proximal humerus fracture Assessment/Plan Assessment/Plan 86-year-old male with a comminuted right proximal humerus fracture. We'll need a CT scan to better evaluate fracture pattern for possible surgical intervention. Consult Acknowledgment - Thank you for your consult request.
--- NOTE | 2016-05-08 23:58 | CT SCAN REPORT ---
EXAMINATION: CT UPPER EXTREMITY WITHOUT CONTRAST, RIGHT CLINICAL INFORMATION: Proximal humerus fracture. Evaluate for surgical planning. COMPARISON: Radiographs dated 05/07/2016 TECHNIQUE: Multidetector volumetric imaging was obtained through the right shoulder without contrast. Multiplanar reconstructed images in coronal and sagittal orientations were submitted. DLP: 866 mGy-cm FINDINGS: There is a comminuted fracture of the proximal humerus involving the greater trochanter, humeral neck and proximal humeral shaft. Small comminuted fragments from the posterior superior aspect of the greater tuberosity are minimally displaced. There is a large cortical fragment from the anterior aspect of the greater tuberosity in the anterior aspect of the proximal humeral shaft which is displaced anteriorly by 2 cm. As seen on coronal image 74/137 of series 21, there is apex lateral angulation at the comminuted proximal humeral shaft component, approximately 50 degrees (angle formed by the longitudinal axis of the dominant humeral head fragment and the distal humeral shaft fragment). No significant articular surface involvement at the humeral head or glenoid. Glenohumeral joint appears relatively well-preserved. Minimal acromioclavicular degenerative arthritis. Minimal degenerative changes are present at the sternoclavicular joint. Old healed right anterolateral rib fractures are present. There is significant soft tissue swelling and edema in the deltoid musculature. There is mild atrophy of the subscapularis muscle. Rotator cuff musculature is otherwise unremarkable. Soft tissue edema is noted in the axilla and subcutaneous fat. No joint effusion. Calcific atherosclerosis is present within the thoracic aorta and its branch vessels. There is dependent atelectasis in the right lower lobe. A small right pleural effusion is present. IMPRESSION: 1. Comminuted proximal humeral fracture with in greater than 1 cm displacement of the anterior greater tuberosity fragment and approximately 50 degrees of apex lateral angulation between the humeral head and humeral shaft fragments. This is a Neer 3 part fracture , though the proximal humeral shaft involvement is more pronounced the typically encounter Neer classification fracture. 2. Small right pleural effusion
--- NOTE | 2016-05-09 07:42 | PN- Housestaff ---
"KWAME GRUBBS 05/09/16 0742: Subjective Follow-up For: Right humerus fracture Fall Subjective: Patient seen and examined. Was evaluated by orthopedic yesterday. Patient to get right upper extremety CT this am to evaluate the fracture. Patient [id number] to report of arm pain. Blood pressure continues to be less than 90 systolic. Patient has remained afebrile. Review of Systems Constitutional: Reports: see HPI. Objective Last 24 Hrs of Vital Signs/I&O Vital Signs Date Time Temp Pulse Resp B/P Pulse O2 O2 Flow FiO2 Ox Delivery Rate 05/08 2352 98.3 100 20 85/60 95 Room Air 05/08 1530 98.2 97 20 82/58 94 Room Air 05/08 0811 98.5 98 18 92 Room Air Intake & Output 05/09 1600 05/09 0800 05/09 0000 Intake Total 1040 1200 Output Total 500 600 Balance 540 600 Intake, IV 800 800 Intake, Oral 240 400 Output, Urine 500 600 Physical Exam General Appearance: Alert, Oriented X3, Cooperative Skin: No Rashes HEENT: Atraumatic Neck: Supple Cardiovascular: Regular Rate, Normal S1, Normal S2 Lungs: Clear to Auscultation, Normal Air Movement Abdomen: Soft, No Tenderness Neurological: Normal Speech, Normal Tone Extremities: right arm in sling Current Medications: Current Medications Sig/Williams Start time Last Medication Dose Route Stop Time Status Admin Acetaminophen/ 1 TAB Q6P PRN 05/07 0315 AC 05/09 Hydrocodone Bitart PO 0353 Aspirin 81 MG DAILY 05/07 1000 AC 05/08 PO 0907 Atorvastatin Calcium 20 MG DAILY@1700 05/08 1700 AC 05/08 PO 1736 Atorvastatin Calcium 20 MG DAILY 05/07 1000 DC 05/07 PO 1107 Duloxetine HCl 30 MG DAILY 05/07 1000 AC 05/08 PO 0907 Ferrous Sulfate 325 MG DAILY 05/07 1000 AC 05/08 PO 0907 Folic Acid 1 MG DAILY 05/07 1000 AC 05/08 PO 0907 Heparin Sodium 5,000 UNIT Q8 05/07 0600 AC 05/09 (Porcine) SC 0636 Insulin Aspart 0 TIDAC 05/07 0800 AC 05/08 SC 1736 Lorazepam 1 MG Q2P PRN 05/07 0315 AC PO Magnesium Sulfate 1 GM ONCE ONE 05/085 DC 05/08 Dextrose/Water 100 ML IV 05/09 0044 2141 Morphine Sulfate 1 MG Q4P PRN 05/07 1600 AC 05/09 IV 0049 Multivitamins 1 TAB DAILY 05/07 1000 AC 05/08 PO 0907 Nicotine 21 MG DAILY 05/07 1000 AC 05/08 TOP 0905 Nystatin 1 MISSY TIDPRN PRN 05/09 0400 AC TOP Omeprazole 40 MG DAILY AC 05/07 0700 AC 05/09 PO 0636 Phosphate 250 MG PC AND AT BEDTIME 05/08 2100 AC 05/08 PO 2224 Phosphate 250 MG PC AND AT BEDTIME 05/07 1800 AC 05/08 PO 2123 Potassium Chloride 60 MEQ ONCE ONE 05/08 0930 CAN PO 05/08 0931 Potassium Chloride 40 MEQ Q6H 05/08 0130 AC 05/09 Sodium Chloride 1,000 ML IV 0352 Potassium Chloride 20 MEQ BID 05/07 1000 AC 05/08 PO 2128 Potassium Phosphate 15 mMol ONE ONE 05/08 2145 DC 05/08 Sodium Chloride 250 ML IV 05/09 0144 2329 Potassium Phosphate 15 mMol ONE ONE 05/08 0930 DC 05/08 Sodium Chloride 250 ML IV 05/08 1333 1119 Thiamine HCl 100 MG DAILY 05/07 1000 AC 05/08 PO 0907 Trazodone HCl 50 MG QPM 05/07 2200 AC 05/08 PO 2123 Last 24 Hrs of Lab/[place] Results Last 24 Hrs of Labs/Mics: Laboratory Tests 05/08/16 2250: Anion Gap 6, Estimated GFR > 60, BUN/Creatinine Ratio 8.0, Phosphorus 0.6 *L, Magnesium 1.5 L 05/08/16 2000: Sodium Cancelled, Potassium Cancelled, Chloride Cancelled, Carbon Dioxide Cancelled, Anion Gap Cancelled, BUN Cancelled, Creatinine Cancelled, BUN/ Creatinine Ratio Cancelled 05/08/16 1815: Anion Gap 10, Estimated GFR > 60, BUN/Creatinine Ratio 8.0, Phosphorus 0.6 *L, Magnesium 1.4 L, Acetone Level NEGATIVE 05/08/16 1200: Acetone Level Cancelled Assessment/Plan Assessment: Patient is 56 y/o M with PMHx of right-sided heart failure, T2DM c/b peripheral neuropathy and alcohol abuse who presents after a near syncopal episode, with hypotension, hypokalemia and hypomagnesemia on admission. Problem list assessment and plan Near syncope/syncope: Most likely secondary to orthostatic hypotension in the setting of dehydration. Blood pressure has been on the low side, overnight went down to 60 systolic, in am remained in 80s. Attendings and dr. Reyes aware. No plan for ICU transfer yet as patient is asymptomatic. No tele events overnight. Will continue to monitor. KAM: Cr 1.6 on admission. 1 on 05/08, no need to usg kidney Baseline creatinine normal - 0.8 in December 2015. morning labs pending Continue to avoid nephrotoxic medications. Anion gap metabolic acidosis: ABG 7.41|24|94|15 and anion gap was initially markedly elevated to 34 on admission. Closed to 10 on 05/08/16. Associated with concomitant metabolic alkalosis most likely secondary to volume contraction and compensatory respiratory alkalosis. Anion gap metabolic acidosis most likely secondary to alcoholic ketoacidosis. Lactic acid was only mildly elevated at 2.3. Nephrology consult service on board. Will cntinue to monitor. Right humeral fracture: S/p fall. XR R shoulder with fracture of the right proximal humeral shaft. Ortho consult service on board. Will obtain CT right humerus per ortho recommendations and f/up. Right arm sling in place. Vicodin 1 tab PO Q6H PRN for moderate pain (scale 4-6) and morphine 2 mg IV Q4H PRN for severe pain (scale 7-10). Hyponatremia: Na 132 on admission. Differential includes dehydration, beer potomania, psychogenic polydipsia and SIADH. Serum osmolality is increased and urine is dilute. Clinical Study Manager on board #Hypokalemia: Severe hypokalemia with K of 2.1 on admission and EKG changes including T wave inversions and prominent U waves. History of chronic hypokalemia likely secondary to alcohol abuse. Takes potassium bicarbonate supplements, 25 mEq daily. * Replete with 10 mEq of IV K x 3 and 40 mEq of PO K. * IVF with 40 mEq of KCl in NS @ 125 cc/hr. * Re-check BMP in the AM. Hypomagnesemia: Magnesium 1.3 on admission. Likely secondary to alcohol abuse. Repleted and will continue to monitor T2DM: Takes metformin 500 mg PO QD and pioglitazone 30 mg PO QD at home. Holding oral hypoglycemic agents while inpatient. Accu-checks and low dose Novolog SSI TIDAC. Alcohol abuse: Admits to drinking several vodka drinks per day. On [facility] protocol to monitor for signs/symptoms of alcohol withdrawal. PO folic acid, thiamine and MVI. CHF: Right heart failure most likely secondary to underlying COPD in the setting of significant smoking history. Most recent ECHO in November 2015 with LVEF of 55-60% but of poor quality and technically not adequate for the assessment of right heart function and pressures. Takes metoprolol 25 mg PO BID and furosemide 60 mg PO QD. No need to repeat ECHO at this time. Holding metoprolol and furosemide in the setting of hypotension. Nicotine dependence: Currently smokes 1 PPD. Has smoked for about 40 years. Nicotine patch 21 mg administered. Insomnia: Continue home trazodone 50 mg PO QHS. Diet: Consistent carbohydrate with 2 g Na restriction DVT PPx: HSQ and ALPs CODE: FULL Problem List: 1. Syncope, near Pain Ratin Pain Location: right arm Pain Goal: Pain 4 or less Pain Plan: Tylenol prn Tomorrow's Labs & Rationales: EMANI WOODARD MD 05/09/16 1456: Attending MD Review Statement Attending Statement Attending MD Statement: examined this patient, discuss w/resident/PA/RADIO COMMUNICATION COORDINATOR, agreed w/resident/PA/RADIO COMMUNICATION COORDINATOR, reviewed EMR data (avail), discussed with nursing, reviewed images, amended to note Attending Assessment/Plan: Mr. Cintron was interviewed, examined, and his EMR was reviewed. He denies chest pain or shortness of breath but notes severe pain secondary to his fracture. He remains afebrile and BP is 85-90 systolic. Is in no distress. His chest is clear. Cardiovascular exam is benign. His right upper extremity is now in a sling. He demonstrates no signs at present of acute withdrawal. He remains anemic. Potassium is improved although still abnormal. Phosphorus and magnesium remains low. Orthopedic input concerning his fracture is greatly appreciated. We will continue to replete his magnesium and potassium. His H&H will be followed. As suggested by cardiology and echocardiogram will be obtained. We will generate a consult concerning his ethanol dependence."
[2016-05-09 08:36] VITALS: BP 92/56
[2016-05-09 09:51] LABS: ABSOLUTE BASOPHIL COUNT 0 /CUMM (0.0-0.2); ABSOLUTE EOSINOPHIL COUNT 0 /CUMM (0.0-0.7); ABSOLUTE GRANULOCYTE CT 3.3 /CUMM (1.4-6.5); ABSOLUTE LYMPH COUNT 0.5 /CUMM (1.2-3.4); ABSOLUTE MONOCYTE COUNT 0.2 /CUMM (0.10-0.60); BASOPHIL % 0.4 % (0.0-2.0); EOSINOPHIL % 0.5 % (0-5); GRANULOCYTE % 80.8 % (42.2-75.2); HEMATOCRIT 24.4 % (42-52); MEAN CORPUSCULAR HGB 30.6 PG (27.0-31.0); MEAN CORPUSCULAR HGB CONC 34.5 G/DL (33.0-37.0); MEAN CORPUSCULAR VOLUME 88.6 FL (80.0-94.0); MEAN PLATELET VOLUME 7.9 FL (7.4-10.4); PLATELET COUNT 100 /CUMM (130-400); RBC DISTRIBUTION WIDTH 12.7 % (11.5-14.5); RED BLOOD CELL CT 2.76 /CUMM (4.70-6.10)
--- NOTE | 2016-05-09 13:19 | PN- Cardiology ---
Subjective Subjective: The patient continues a component of right arm pain. Blood pressure continues to be borderline. No chest pain. No palpitations. No further lightheadedness or dizziness. Objective Vital Signs and I&Os Vital Signs Date Time Temp Pulse Resp B/P Pulse O2 O2 Flow FiO2 Ox Delivery Rate 05/09 0836 98.7 107 20 92/56 96 Room Air 05/08 2352 98.3 100 20 85/60 95 Room Air 05/08 1530 98.2 97 20 82/58 94 Room Air Intake & Output 05/09 1600 05/09 0800 05/09 0000 05/08 1600 05/08 0800 05/08 0000 Intake Total 1040 1200 2250 1910 2055 Output Total 500 444 784 5715 1275 Balance 706 322 5001 510 780 Intake, IV 371 484 9010 950 1375 Intake, Oral 240 400 600 960 680 Number 0 Bowel Movements Output, Urine 500 212 825 8226 1275 Physical Exam: Gen: The patient is in no acute distress HEENT: Normal nose, ears, and oropharynx. Pupils equal bilaterally. Conjunctiva normal. Neck: Supple with no JVD, no masses, and no thyromegaly Lungs: Clear to auscultation with normal respiratory effort Heart: RRR, S1, S2, no murmurs. No peripheral edema, 2+ pulses in the lower extremities bilaterally Abdomen: Soft, nontender, no masses. No hepatomegaly. No splenomegaly Extremities: No clubbing or cyanosis. Normal muscle strength in the upper and lower extremities Skin: Normal skin turgor with no skin ulcers or lesions noted. Current Medications: Current Medications Sig/Williams Start time Last Medication Dose Route Stop Time Status Admin Acetaminophen/ 1 TAB Q6P PRN 05/07 0315 AC 05/09 Hydrocodone Bitart PO 1243 Aspirin 81 MG DAILY 05/07 1000 AC 05/09 PO 0900 Atorvastatin Calcium 20 MG DAILY@1700 05/08 1700 AC 05/08 PO 1736 Atorvastatin Calcium 20 MG DAILY 05/07 1000 DC 05/07 PO 1107 Duloxetine HCl 30 MG DAILY 05/07 1000 AC 05/09 PO 0900 Ferrous Sulfate 325 MG DAILY 05/07 1000 AC 05/09 PO 0900 Folic Acid 1 MG DAILY 05/07 1000 AC 05/09 PO 0900 Heparin Sodium 5,000 UNIT Q8 05/07 0600 AC 05/09 (Porcine) SC 1244 Insulin Aspart 0 TIDAC 05/07 0800 AC 05/09 SC 1237 Lorazepam 1 MG Q2P PRN 05/07 0315 AC PO Magnesium Sulfate 1 GM ONCE ONE 05/08 2045 DC 05/08 Dextrose/Water 100 ML IV 05/09 0044 2141 Morphine Sulfate 1 MG Q4P PRN 05/07 1600 AC 05/09 IV 0854 Multivitamins 1 TAB DAILY 05/07 1000 AC 05/09 PO 0900 Nicotine 21 MG DAILY 05/07 1000 AC 05/09 TOP 0858 Nystatin 1 MISSY TIDPRN PRN 05/09 0400 AC TOP Omeprazole 40 MG DAILY AC 05/07 0700 AC 05/09 PO 0636 Phosphate 250 MG PC AND AT BEDTIME 05/08 2100 AC 05/08 PO 2224 Phosphate 250 MG PC AND AT BEDTIME 05/07 1800 AC 05/09 PO 1244 Potassium Chloride 60 MEQ ONCE ONE 05/08 0930 CAN PO 05/08 0931 Potassium Chloride 40 MEQ Q6H 05/08 0130 AC 05/09 Sodium Chloride 1,000 ML IV 1100 Potassium Chloride 20 MEQ BID 05/07 1000 AC 05/09 PO 0859 Potassium Phosphate 15 mMol Q4H 05/09 1800 AC Sodium Chloride 250 ML IV 05/09 2159 Potassium Phosphate 15 mMol Q4H 05/09 1200 AC 05/09 Sodium Chloride 250 ML IV 05/09 1559 1242 Potassium Phosphate 15 mMol ONE ONE 05/08 2145 DC 05/08 Sodium Chloride 250 ML IV 05/09 0144 2329 Potassium Phosphate 15 mMol ONE ONE 05/08 0930 DC 05/08 Sodium Chloride 250 ML IV 05/08 1333 1119 Thiamine HCl 100 MG DAILY 05/07 1000 AC 05/09 PO 0900 Trazodone HCl 50 MG QPM 05/07 2200 AC 05/08 PO 2123 Results Last 48 Hrs of Labs/Mics: Laboratory Tests 05/09/16 0905: Anion Gap 6, Estimated GFR > 60, BUN/Creatinine Ratio 7.8, Phosphorus 0.8 *L, Magnesium 1.4 L, CBC w Diff NO MAN DIFF REQ, RBC 2.76 L, MCV 88.6, MCH 30.6, RDW 12.7, MPV 7.9, Gran % 80.8 H, Lymphocytes % 13.2 L, Monocytes % 5.1, Eosinophils % 0.5, Basophils % 0.4, Absolute Granulocytes 3.3, Absolute Lymphocytes 0.5 L, Absolute Monocytes 0.2, Absolute Eosinophils 0, Absolute Basophils 0, [facility] MCHC 34.5 05/08/16 2250: Anion Gap 6, Estimated GFR > 60, BUN/Creatinine Ratio 8.0, Phosphorus 0.6 *L, Magnesium 1.5 L 05/08/16 2000: Sodium Cancelled, Potassium Cancelled, Chloride Cancelled, Carbon Dioxide Cancelled, Anion Gap Cancelled, BUN Cancelled, Creatinine Cancelled, BUN/ Creatinine Ratio Cancelled 05/08/16 1815: Anion Gap 10, Estimated GFR > 60, BUN/Creatinine Ratio 8.0, Phosphorus 0.6 *L, Magnesium 1.4 L, Acetone Level NEGATIVE 05/08/16 1200: Acetone Level Cancelled 05/08/16 0700: Lactic Acid 0.6 L 05/08/16 0700: Anion Gap 13, Estimated GFR > 60, BUN/Creatinine Ratio 10.0, Phosphorus 0.7 *L, Magnesium 1.8, Vitamin B12 467, Folate > 20.0 H, CBC w Diff NO MAN DIFF REQ, RBC 2.73 L, MCV 89.2, MCH 31.0, RDW 12.9, MPV 7.7, Gran % 75.0, Lymphocytes % 17.6 L, Monocytes % 6.1, Eosinophils % 1.0, Basophils % 0.3, Absolute Granulocytes 3.5, Absolute Lymphocytes 0.8 L, Absolute Monocytes 0.3, Absolute Eosinophils 0, Absolute Basophils 0, [facility] MCHC 34.8 05/08/16 0405: Lactic Acid Cancelled 05/08/16 0129: Anion Gap 13, Estimated GFR > 60, BUN/Creatinine Ratio 11.8, Lactic Acid 0.7, Cortisol PM Sample 9.6 05/08/16 0124: Sodium Cancelled, Potassium Cancelled, Chloride Cancelled, Carbon Dioxide Cancelled, Anion Gap Cancelled, BUN Cancelled, Creatinine Cancelled, BUN/ Creatinine Ratio Cancelled, Lactic Acid Cancelled 05/08/16 0120: Cortisol PM Sample Cancelled 05/07/16 1705: 05/07/16 1705: Magnesium 1.6 Assessment/Plan Assessment/Plan Assessment: 1. Chronic HFpEF, stable 2. Syncope, likely secondary to volume depletion 3. Hypotension likely secondary to volume depletion 4. Acute kidney injury, improving 5. Hypokalemia, improving Plan: * Lasix on hold * Continue IV fluid * Supplement potassium and magnesium Continue telemetry? Yes
--- NOTE | 2016-05-09 13:23 | PN- Nephrology ---
Assessment/Plan Assessment: 1. KAM - resolved 2. Hypokalemia - improved 3. Hypophosphatemia - persistent 4. Hypomagnesemia 5. Hypotension - persistent; ?cardiomyopathy 6. Comminuted, mildly displaced fracture of the proximal humeral shaft 7. Anemia 8. Suspect underlying chronic alcoholism Suggestion: 1. Echocardiogram 2. Anemia workup 3. Potassium, magnesium and phosphorus supplementation as needed; goal is serum potassium over 3.5 and serum phosphorus over 2.0. Agree with oral plus parenteral phosphorus repletion; suggest the same for magnesium repletion. 4. Check INR 5. Consider abdominal ultrasound primarily to assess hepatic architecture 6. Ortho follow-up Subjective Subjective: Patient feeling about the same today. He slept poorly. No other specific complaints. Blood pressure remains low. Serum phosphorus and magnesium remained low as well, potassium borderline, renal function has normalized. Objective Vital Signs and I&Os Vital Signs Date Time Temp Pulse Resp B/P Pulse O2 O2 Flow FiO2 Ox Delivery Rate 05/09 0836 98.7 107 20 92/56 96 Room Air 05/08 2352 98.3 100 20 85/60 95 Room Air 05/08 1530 98.2 97 20 82/58 94 Room Air Intake & Output 05/09 1600 05/09 0400 05/08 1600 05/08 0400 05/07 1600 05/07 0400 Intake Total 1040 1200 4160 2055 3295 3000 Output Total 141 948 8994 1275 1850 300 Balance 791 315 6488 780 1445 2700 Intake, IV 382 228 5008 1375 1875 3000 Intake, Oral 644 648 5965 680 1420 Number 0 Bowel Movements Output, Urine 973 558 0808 1275 1850 300 Patient 195 lb Weight Physical Exam: General: Well-developed white male in NAD Skin: Hyperpigmentation/ecchymosis on the right side of his face, no jaundice HEENT: Conjunctivae pale, sclerae anicteric, mucous membranes moist Neck: Without masses or thyromegaly, no supraclavicular or cervical adenopathy Chest: Clear to P&A Heart: Regular rate and rhythm without S3 or rub Abdomen: Soft and nontender without palpable masses or organomegaly Extremities: Right shoulder in an immobilizer/sling; no cyanosis or pitting edema Neuro: No focal findings, no asterixis or myoclonus Current Medications: Current Medications Sig/Williams Start time Last Medication Dose Route Stop Time Status Admin Acetaminophen/ 1 TAB Q6P PRN 05/07 0315 AC 05/09 Hydrocodone Bitart PO 1243 Aspirin 81 MG DAILY 05/07 1000 AC 05/09 PO 0900 Atorvastatin Calcium 20 MG DAILY@1700 05/08 1700 AC 05/08 PO 1736 Atorvastatin Calcium 20 MG DAILY 05/07 1000 DC 05/07 PO 1107 Duloxetine HCl 30 MG DAILY 05/07 1000 AC 05/09 PO 0900 Ferrous Sulfate 325 MG DAILY 05/07 1000 AC 05/09 PO 0900 Folic Acid 1 MG DAILY 05/07 1000 AC 05/09 PO 0900 Heparin Sodium 5,000 UNIT Q8 05/07 0600 AC 05/09 (Porcine) SC 1244 Insulin Aspart 0 TIDAC 05/07 0800 AC 05/09 SC 1237 Lorazepam 1 MG Q2P PRN 05/07 0315 AC PO Magnesium Sulfate 1 GM ONCE ONE 05/08 2045 DC 05/08 Dextrose/Water 100 ML IV 05/09 0044 2141 Morphine Sulfate 1 MG Q4P PRN 05/07 1600 AC 05/09 IV 0854 Multivitamins 1 TAB DAILY 05/07 1000 AC 05/09 PO 0900 Nicotine 21 MG DAILY 05/07 1000 AC 05/09 TOP 0858 Nystatin 1 MISSY TIDPRN PRN 05/09 0400 AC TOP Omeprazole 40 MG DAILY AC 05/07 0700 AC 05/09 PO 0636 Phosphate 250 MG PC AND AT BEDTIME 05/08 2100 AC 05/08 PO 2224 Phosphate 250 MG PC AND AT BEDTIME 05/07 1800 AC 05/09 PO 1244 Potassium Chloride 60 MEQ ONCE ONE 05/08 0930 CAN PO 05/08 0931 Potassium Chloride 40 MEQ Q6H 05/08 0130 AC 05/09 Sodium Chloride 1,000 ML IV 1100 Potassium Chloride 20 MEQ BID 05/07 1000 AC 05/09 PO 0859 Potassium Phosphate 15 mMol Q4H 05/09 1800 AC Sodium Chloride 250 ML IV 05/09 2159 Potassium Phosphate 15 mMol Q4H 05/09 1200 AC 05/09 Sodium Chloride 250 ML IV 05/09 1559 1242 Potassium Phosphate 15 mMol ONE ONE 05/08 2145 DC 05/08 Sodium Chloride 250 ML IV 05/09 0144 2329 Potassium Phosphate 15 mMol ONE ONE 05/08 0930 DC 05/08 Sodium Chloride 250 ML IV 05/08 1333 1119 Thiamine HCl 100 MG DAILY 05/07 1000 AC 05/09 PO 0900 Trazodone HCl 50 MG QPM 05/070 AC 05/08 PO 2123 Results Pertinent Lab Results: Laboratory Tests 05/09 05/08 05/08 0905 2250 2000 Chemistry Sodium (137 - 145 mmol/L) 136 L 129 L Cancelled Potassium (3.5 - 5.1 mmol/L) 3.7 4.0 Cancelled Chloride (98 - 107 mmol/L) 105 98 Cancelled Carbon Dioxide (22 - 30 mmol/L) 26 25 Cancelled Anion Gap (5 - 16) 6 6 Cancelled BUN (9 - 20 mg/dL) 7 L 8 L Cancelled Creatinine (0.7 - 1.2 mg/dL) 0.9 1.0 Cancelled Estimated GFR (>60 ml/min) > 60 > 60 BUN/Creatinine Ratio (7 - 25 %) 7.8 8.0 Cancelled Phosphorus (2.5 - 4.5 mg/dL) 0.8 *L 0.6 *L Magnesium (1.6 - 2.3 mg/dL) 1.4 L 1.5 L Hematology CBC w Diff NO MAN DIFF REQ WBC (4.8 - 10.8 /CUMM) 4.0 L RBC (4.70 - 6.10 /CUMM) 2.76 L Hgb (14.0 - 18.0 G/DL) 8.4 L Hct (42 - 52 %) 24.4 L MCV (80.0 - 94.0 FL) 88.6 MCH (27.0 - 31.0 PG) 30.6 RDW (11.5 - 14.5 %) 12.7 Plt Count (130 - 400 /CUMM) 100 L MPV (7.4 - 10.4 FL) 7.9 Gran % (42.2 - 75.2 %) 80.8 H Lymphocytes % (20.5 - 51.1 %) 13.2 L Monocytes % (1.7 - 9.3 %) 5.1 Eosinophils % (0 - 5 %) 0.5 Basophils % (0.0 - 2.0 %) 0.4 Absolute Granulocytes (1.4 - 6.5 /CUMM) 3.3 Absolute Lymphocytes (1.2 - 3.4 /CUMM) 0.5 L Absolute Monocytes (0.10 - 0.60 /CUMM) 0.2 Absolute Eosinophils (0.0 - 0.7 /CUMM) 0 Absolute Basophils (0.0 - 0.2 /CUMM) 0 PUBS MCHC (33.0 - 37.0 G/DL) 34.5 05/08 05/08 05/08 1815 1200 0700 Chemistry Sodium (137 - 145 mmol/L) 132 L Potassium (3.5 - 5.1 mmol/L) 3.5 Chloride (98 - 107 mmol/L) 98 Carbon Dioxide (22 - 30 mmol/L) 24 Anion Gap (5 - 16) 10 BUN (9 - 20 mg/dL) 8 L Creatinine (0.7 - 1.2 mg/dL) 1.0 Estimated GFR (>60 ml/min) > 60 BUN/Creatinine Ratio (7 - 25 %) 8.0 Lactic Acid (0.7 - 2.1 mmol/L) 0.6 L Phosphorus (2.5 - 4.5 mg/dL) 0.6 *L Magnesium (1.6 - 2.3 mg/dL) 1.4 L Toxicology Acetone Level (NEGATIVE) NEGATIVE Cancelled 05/08 05/08 05/08 0700 0405 0129 Chemistry Sodium (137 - 145 mmol/L) 134 L 134 L Potassium (3.5 - 5.1 mmol/L) 3.1 L 3.0 L Chloride (98 - 107 mmol/L) 99 97 L Carbon Dioxide (22 - 30 mmol/L) 23 24 Anion Gap (5 - 16) 13 13 BUN (9 - 20 mg/dL) 10 13 Creatinine (0.7 - 1.2 mg/dL) 1.0 1.1 Estimated GFR (>60 ml/min) > 60 > 60 BUN/Creatinine Ratio (7 - 25 %) 10.0 11.8 Lactic Acid (0.7 - 2.1 mmol/L) Cancelled 0.7 Phosphorus (2.5 - 4.5 mg/dL) 0.7 *L Magnesium (1.6 - 2.3 mg/dL) 1.8 Vitamin B12 (239 - 931 pg/mL) 467 Folate (2.76 - 20.0 ng/mL) > 20.0 H Cortisol PM Sample (1.7 - 14.1) 9.6 Hematology CBC w Diff NO MAN DIFF REQ WBC (4.8 - 10.8 /CUMM) 4.7 L RBC (4.70 - 6.10 /CUMM) 2.73 L Hgb (14.0 - 18.0 G/DL) 8.5 L Hct (42 - 52 %) 24.3 L MCV (80.0 - 94.0 FL) 89.2 MCH (27.0 - 31.0 PG) 31.0 RDW (11.5 - 14.5 %) 12.9 Plt Count (130 - 400 /CUMM) 91 L MPV (7.4 - 10.4 FL) 7.7 Gran % (42.2 - 75.2 %) 75.0 Lymphocytes % (20.5 - 51.1 %) 17.6 L Monocytes % (1.7 - 9.3 %) 6.1 Eosinophils % (0 - 5 %) 1.0 Basophils % (0.0 - 2.0 %) 0.3 Absolute Granulocytes (1.4 - 6.5 /CUMM) 3.5 Absolute Lymphocytes (1.2 - 3.4 /CUMM) 0.8 L Absolute Monocytes (0.10 - 0.60 /CUMM) 0.3 Absolute Eosinophils (0.0 - 0.7 /CUMM) 0 Absolute Basophils (0.0 - 0.2 /CUMM) 0 PUBS MCHC (33.0 - 37.0 G/DL) 34.8 05/08 05/08 05/07 05/07 0124 0120 1705 1705 Chemistry Sodium Cancelled Potassium (3.5 - 5.1 mmol/L) Cancelled 3.0 L Chloride Cancelled Carbon Dioxide Cancelled Anion Gap Cancelled BUN Cancelled Creatinine Cancelled BUN/Creatinine Ratio Cancelled Lactic Acid Cancelled Magnesium (1.6 - 2.3 mg/dL) 1.6 Cortisol PM Sample Cancelled 05/07 05/07 5672 3075 Blood Gas pH (7.35 - 7.45 PH) 7.41 pCO2 (35 - 45 TORR) 24 L pO2 (80 - 100 TORR) 94 HCO3 (21 - 28 MEQ/L) 15 L ABG O2 Sat (Measured) (>96.0 %) 96.0 P-50 (Temp Corrected) N Carboxyhemoglobin (1.5 - 5.0 %) 0.7 L O2 Concentration % RA Chemistry Sodium (137 - 145 mmol/L) 132 L Potassium (3.5 - 5.1 mmol/L) 2.6 *L Chloride (98 - 107 mmol/L) 93 L Carbon Dioxide (22 - 30 mmol/L) 20 L Anion Gap (5 - 16) 19 H BUN (9 - 20 mg/dL) 20 Creatinine (0.7 - 1.2 mg/dL) 1.3 H Estimated GFR (>60 ml/min) 57 L BUN/Creatinine Ratio (7 - 25 %) 15.4 Lactic Acid (0.7 - 2.1 mmol/L) 0.6 L Phosphorus (2.5 - 4.5 mg/dL) 1.8 L Magnesium (1.6 - 2.3 mg/dL) 1.8 Hematology CBC w Diff NO MAN DIFF REQ WBC (4.8 - 10.8 /CUMM) 5.8 RBC (4.70 - 6.10 /CUMM) 2.95 L Hgb (14.0 - 18.0 G/DL) 9.2 L Hct (42 - 52 %) 26.3 L MCV (80.0 - 94.0 FL) 89.2 MCH (27.0 - 31.0 PG) 31.2 H RDW (11.5 - 14.5 %) 13.0 Plt Count (130 - 400 /CUMM) 116 L MPV (7.4 - 10.4 FL) 7.6 Gran % (42.2 - 75.2 %) 77.2 H Lymphocytes % (20.5 - 51.1 %) 15.3 L Monocytes % (1.7 - 9.3 %) 7.2 Eosinophils % (0 - 5 %) 0.2 Basophils % (0.0 - 2.0 %) 0.1 Absolute Granulocytes (1.4 - 6.5 /CUMM) 4.5 Absolute Lymphocytes (1.2 - 3.4 /CUMM) 0.9 L Absolute Monocytes (0.10 - 0.60 /CUMM) 0.4 Absolute Eosinophils (0.0 - 0.7 /CUMM) 0 Absolute Basophils (0.0 - 0.2 /CUMM) 0 PUBS MCHC (33.0 - 37.0 G/DL) 35.0 Miscellaneous Ref Lab Test Result Cancelled Phlebotomy Draw Site LEFT BRACHIAL 05/07 05/07 0100 0100 Toxicology Urine Opiates Screen (>2000 NG/ML) 402.00 Methadone Screen (>300 NG/ML) 51 Barbiturate Screen (>200 NG/ML) < 60 Ur Phencyclidine Scrn (>25 NG/ML) < 6.00 Amphetamines Screen (>1000 NG/ML) < 100 U Benzodiazepines Scrn (>200 NG/ML) < 85 Urine Cocaine Screen (>300 NG/ML) < 50 Urine Cannabis Screen (>50 NG/ML) < 5.00 Urines Urinalysis LIGHT H Urine Color (YEL,AMB,STR) YEL Urine Clarity (CLEAR) CLEAR Urine pH (5.0 - 8.0) 6.0 Ur Specific [place] (1.001 - 1.035) 1.010 Urine Protein (NEG,<30 MG/DL) TRACE H Urine Ketones (NEG) 40 H Urine Nitrite (NEG) NEG Urine Bilirubin (NEG) NEG@ICTO Urine Urobilinogen (0.1 - 1.0 EU/dl) 1.0 Ur Leukocyte Esterase (NEG) NEG Ur Microscopic SEDIMENT EXAMINED Urine RBC (0 - 5 /HPF) 1-3 Ur Epithelial Cells (NONE,FEW) RARE Urine Mucus (FEW,NONE) RARE Urine Hemoglobin (NEG) TRACE-INTACT H Urine Osmolality (300 - 1000 MOSM/KG) 237 L Ur Random Creatinine (mg/dL) 56.3 Ur Random Sodium (30 - 90 mmol/L) 18 L Ur Random Potassium (mmol/L) 6.5 Fraction Sodium Excret (<1% %) 0.4 Urine Glucose (N MG/DL) NEG 05/06 2327 Chemistry Sodium (137 - 145 mmol/L) 132 L Potassium (3.5 - 5.1 mmol/L) 2.1 *L Chloride (98 - 107 mmol/L) 76 L Carbon Dioxide (22 - 30 mmol/L) 22 Anion Gap (5 - 16) 34 H BUN (9 - 20 mg/dL) 26 H Creatinine (0.7 - 1.2 mg/dL) 1.6 H Estimated GFR (>60 ml/min) 45 L BUN/Creatinine Ratio (7 - 25 %) 16.3 Glucose (65 - 99 mg/dL) 174 H Serum Osmolality (285 - 295 MOSM/KG) 307 H Lactic Acid (0.7 - 2.1 mmol/L) 2.3 H Calcium (8.4 - 10.2 mg/dL) 8.5 Magnesium (1.6 - 2.3 mg/dL) 1.3 L Total Bilirubin (0.2 - 1.3 mg/dL) 1.6 H AST (17 - 59 U/L) 29 ALT (21 - 72 U/L) 32 Alkaline Phosphatase (< 127 U/L) 80 Troponin I (<0.11 ng/ml) 0.03 Total Protein (6.3 - 8.2 g/dL) 7.3 Albumin (3.5 - 5.0 g/dL) 4.4 Globulin (1.9 - 4.2 gm/dL) 2.9 Albumin/Globulin Ratio (1.1 - 2.2 %) 1.5 Hematology CBC w Diff NO MAN DIFF REQ WBC (4.8 - 10.8 /CUMM) 11.4 H RBC (4.70 - 6.10 /CUMM) 4.26 L Hgb (14.0 - 18.0 G/DL) 13.1 L Hct (42 - 52 %) 38.0 L MCV (80.0 - 94.0 FL) 89.2 MCH (27.0 - 31.0 PG) 30.9 RDW (11.5 - 14.5 %) 12.6 Plt Count (130 - 400 /CUMM) 193 MPV (7.4 - 10.4 FL) 8.0 Gran % (42.2 - 75.2 %) 85.9 H Lymphocytes % (20.5 - 51.1 %) 7.6 L Monocytes % (1.7 - 9.3 %) 6.2 Eosinophils % (0 - 5 %) 0.1 Basophils % (0.0 - 2.0 %) 0.2 Absolute Granulocytes (1.4 - 6.5 /CUMM) 9.8 H Absolute Lymphocytes (1.2 - 3.4 /CUMM) 0.9 L Absolute Monocytes (0.10 - 0.60 /CUMM) 0.7 H Absolute Eosinophils (0.0 - 0.7 /CUMM) 0 Absolute Basophils (0.0 - 0.2 /CUMM) 0 PUBS MCHC (33.0 - 37.0 G/DL) 34.6 Toxicology Serum Alcohol (<10 MG/DL) < 10.0
--- NOTE | 2016-05-09 13:28 | PN- Orthopedic ---
Subjective Subjective: Patient seen today. Still complaining of severe shoulder pain on the right. Objective Vital Signs and I&Os Vital Signs Date Time Temp Pulse Resp B/P Pulse O2 O2 Flow FiO2 Ox Delivery Rate 05/09 0836 98.7 107 20 92/56 96 Room Air 05/08 2352 98.3 100 20 85/60 95 Room Air 05/08 1530 98.2 97 20 82/58 94 Room Air Intake & Output 05/09 1600 05/09 0800 05/09 0000 05/08 1600 05/08 0800 05/08 0000 Intake Total 1040 1200 2250 1910 2055 Output Total 500 646 620 7893 1275 Balance 719 098 2800 510 780 Intake, IV 681 980 7488 950 1375 Intake, Oral 240 400 600 960 680 Number 0 Bowel Movements Output, Urine 500 593 888 6524 1275 On physical exam the patient's right upper extremity is neurovascular intact. There is swelling and ecchymosis about the proximal right arm and shoulder. Pain with any movement at all. He is mildly comfortable in a sling. CT scan of the right upper chamois was reviewed today. After discussion with my partners as well as the patient I have decided that nonoperative treatment will be the best course of action for this fracture due to the severe comminution however acceptable alignment of the fracture at this point. There is no involvement of the humeral head and therefore I think the patient will get a good outcome with conservative treatment and nonoperative treatment. The patient since this. Assessment/Plan Assessment/Plan Right humerus fracture. The patient is to follow-up in my office in 1 week for possibility of switching to a hanging arm cast for the remainder of his treatment while the fracture heals.
--- NOTE | 2016-05-09 15:24 | Transfer of Care Summary ---
Hospital Course Course Hospital Course: Patient is 56 y/o M with PMHx of right-sided heart failure, T2DM c/b peripheral neuropathy and alcohol abuse who presents after a near syncopal episode, with hypotension, hypokalemia and hypomagnesemia on admission. Patient was treated in the hospital for following conditions under my service. Near syncope/syncope: Was thought to be due to orthostatic hypotension in the setting of dehydration. Blood pressure has been on the low side per Dr. Garrett. patient was just monitored closely. KAM: Improved after IV hydration. baseline 0.8 Nephrology consult service was on board Anion gap metabolic acidosis: Anion demian was 34 on admission. Closed to 10 on 05/08/16. Associated with concomitant metabolic alkalosis was likely secondary to volume contraction and compensatory respiratory alkalosis. Anion gap metabolic acidosis most likely secondary to alcoholic ketoacidosis. Lactic acid was only mildly elevated at 2.3. Nephrology consult service was on board. Right humeral fracture: S/p fall. XR R shoulder with fracture of the right proximal humeral shaft. Ortho consult service on board. They recommend conservative treatment with plastor and arm sling. T2DM: Metformin 500 mg PO QD and pioglitazone 30 mg PO QD that patient takes at home were held. Holding oral hypoglycemic agents while inpatient. Accu-checks and low dose Novolog SSI TIDAC. Alcohol abuse: Admits to drinking several vodka drinks per day. On [facility] protocol to monitor for signs/symptoms of alcohol withdrawal. PO folic acid, thiamine and MVI. CHF: Right heart failure most likely secondary to underlying COPD in the setting of significant smoking history. Most recent ECHO in November 2015 with LVEF of 55-60% but of poor quality and technically not adequate for the assessment of right heart function and pressures. Patient takes metoprolol 25 mg PO BID and furosemide 60 mg PO QD. Will follow up repeat echo for any possible hypokinesia.His metoprolol and furosemide were held in the setting of hypotension. Assessment/Plan: as above
[2016-05-09 15:30] VITALS: BP 112/60
[2016-05-10 00:15] VITALS: BP 110/60
--- NOTE | 2016-05-10 08:02 | PN- Housestaff ---
"RAINA MORATAYA,ANNEMARIE 05/10/16 0759: Subjective Follow-up For: Hypomagnesemia Hypophosphatemia Rt. humeral fracture Complaints: pain scale (0-10) (8/10 pain with fracture) Tele-Events Since Last Visit: Sinus tachycardia, NSR Subjective: Pt is feeling okay, c/o Rt. humeral fracture pain 8/10 He has bilateral LE edema. Review of Systems Constitutional: Denies: chills, fever, malaise, weakness. EENTM: Reports: no symptoms. Cardiovascular: Denies: chest pain, palpitations, peripheral edema, syncope. Respiratory: Denies: cough, short of breath, sputum production, wheezing. Gastrointestinal: Denies: abdominal pain, diarrhea, nausea, vomiting. Genitourinary: Reports: no symptoms. Musculoskeletal: Reports: see HPI (Rt. arm pain s/p fracture). Skin: Reports: no symptoms. Neurological/Psychological: Reports: no symptoms. Hematologic/Endocrine: Reports: no symptoms. Immunologic/Allergic: Reports: no symptoms. Objective Last 24 Hrs of Vital Signs/I&O Vital Signs Date Time Temp Pulse Resp B/P Pulse O2 O2 Flow FiO2 Ox Delivery Rate 05/10 1717 97.7 96 17 101/71 98 Room Air 05/10 1653 Room Air Room Air 05/10 0820 98.0 119 18 105/60 93 Room Air 05/10 0015 98.5 100 20 110/60 95 Room Air Intake & Output 05/10 1600 05/10 0800 05/10 0000 Intake Total 940 1250 Output Total 500 690 Balance 440 560 Intake, IV 700 800 Intake, Oral 240 450 Output, Urine 500 690 Physical Exam General Appearance: Alert, Oriented X3, Cooperative, No Acute Distress Skin: No Rashes, No Breakdown, No Significant Lesion HEENT: Atraumatic, PERRLA, EOMI, Mucous Membr. moist/pink Neck: Supple, No JVD, No thryomegaly, No LAD Lymphatic: Cervical nl Cardiovascular: Regular Rate, Normal S1, Normal S2, No Murmurs Lungs: Clear to Auscultation, Normal Air Movement Abdomen: Normal Bowel Sounds, Soft, No Tenderness Neurological: Normal Speech, Normal Tone, Cranial Nerves 3-12 NL Extremities: bilateral LE edema Vascular: Normal Pulses, Pulses Symmetrical Current Medications: Current Medications Sig/Williams Start time Last Medication Dose Route Stop Time Status Admin Acetaminophen/ 1 TAB Q6P PRN 05/07 0315 AC 05/10 Hydrocodone Bitart PO 1705 Aspirin 81 MG DAILY 05/07 1000 AC 05/10 PO 0921 Atorvastatin Calcium 20 MG DAILY@1700 05/08 1700 AC 05/10 PO 1700 Duloxetine HCl 30 MG DAILY 05/07 1000 AC 05/10 PO 0921 Ferrous Sulfate 325 MG DAILY 05/07 1000 AC 05/10 PO 0921 Folic Acid 1 MG DAILY 05/07 1000 AC 05/10 PO 0921 Heparin Sodium 5,000 UNIT Q8 05/07 0600 AC 05/10 (Porcine) SC 1500 Insulin Aspart 0 TIDAC 05/07 0800 AC 05/10 SC 1231 Lorazepam 1 MG Q2P PRN 05/07 0315 AC PO Magnesium Oxide 400 MG BID 05/10 2200 AC PO Magnesium Sulfate 1 GM Q2H 05/10 1130 DC 05/10 Dextrose/Water 100 ML IV 05/10 1529 1659 Morphine Sulfate 1 MG Q4P PRN 05/07 1600 AC 05/10 IV 1250 Multivitamins 1 TAB DAILY 05/07 1000 AC 05/10 PO 0921 Nicotine 21 MG DAILY 05/07 1000 AC 05/10 TOP 0920 Nystatin 1 MISSY TIDPRN PRN 05/09 0400 AC TOP Omeprazole 40 MG DAILY AC 05/07 0700 AC 05/10 PO 0828 Phosphate 250 MG PC AND AT BEDTIME 05/08 2100 DC 05/09 PO 2209 Phosphate 250 MG PC AND AT BEDTIME 05/07 1800 AC 05/10 PO 1659 Potassium Chloride 40 MEQ Q6H 05/08 0130 DC 05/10 Sodium Chloride 1,000 ML IV 0218 Potassium Chloride 20 MEQ BID 05/07 1000 AC 05/10 PO 0920 Potassium Phosphate 15 mMol Q4H 05/09 1800 DC 05/09 Sodium Chloride 250 ML IV 05/09 2159 1719 Thiamine HCl 100 MG DAILY 05/07 1000 AC 05/10 PO 0921 Trazodone HCl 50 MG QPM 05/07 2200 AC 05/09 PO 2209 Last 24 Hrs of Lab/[place] Results Last 24 Hrs of Labs/Mics: Laboratory Tests 05/10/16 0924: Anion Gap 9, Estimated GFR > 60, BUN/Creatinine Ratio 6.7 L, Phosphorus 1.8 L, Magnesium 1.0 L Lines/Diet/Fluids Lines: peripheral lines Assessment/Plan Assessment: Patient is 56 y/o M with PMHx of right-sided heart failure, T2DM c/b peripheral neuropathy and alcohol abuse who presents after a near syncopal episode, with hypotension, hypokalemia and hypomagnesemia on admission. Problem list assessment and plan Near syncope/syncope: Most likely secondary to orthostatic hypotension in the setting of dehydration. Blood pressure has been on the low side, overnight went down to 60 systolic, in am remained in 80s. Attendings and dr. Reyes aware. No plan for ICU transfer yet as patient is asymptomatic. No tele events overnight. Will continue to monitor. KAM resolved Cr 1.6 on admission. 0.9 on 05/10, no need to usg kidney Baseline creatinine normal - 0.8 in December 2015. Continue to avoid nephrotoxic medications. Anion gap metabolic acidosis, resolved ABG 7.41|24|94|15 and anion gap was initially markedly elevated to 34 on admission. Closed to 10 on 05/08/16. Associated with concomitant metabolic alkalosis most likely secondary to volume contraction and compensatory respiratory alkalosis. Anion gap metabolic acidosis most likely secondary to alcoholic ketoacidosis. Nephrology consult was obtained, now resolved Right humeral fracture: S/p fall. XR R shoulder with fracture of the right proximal humeral shaft. Ortho consult was obtained CT upper ext shows commuted proximal humeral fracture. Right arm sling in place. Vicodin 1 tab PO Q6H PRN for moderate pain (scale 4-6) and morphine 2 mg IV Q4H PRN for severe pain (scale 7-10). f/u Orthopedic as outpatient. Hyponatremia resolved: Na 132 on admission. Hyperosmolar hyponatremia. U osm low 237. Now improved to 135 Hypokalemia resolved: Severe hypokalemia with K of 2.1 on admission and EKG changes including T wave inversions and prominent U waves. History of chronic hypokalemia likely secondary to alcohol abuse. Repletion was given with IV K and IVF with 40 mEq of KCl in NS @ 125 cc/hr. Now fluid is discontinued as k is 4.7 on 05/10. Hypomagnesemia: Magnesium 1.3 on admission. Likely secondary to alcohol abuse. still low at 1 on 05/10. IV Mg with po Mg will be given. continue monitor. Hypophosphatemia: Critically low at 0.6 on 05/08 now improved to 1.8 on 05/10. Continue oral supplement and monitor level. T2DM: Takes metformin 500 mg PO QD and pioglitazone 30 mg PO QD at home. Holding oral hypoglycemic agents while inpatient. Accu-checks and low dose Novolog SSI TIDAC. BS is under control. Alcohol abuse: Admits to drinking several vodka drinks per day. On [facility] protocol to monitor for signs/symptoms of alcohol withdrawal. PO folic acid, thiamine and MVI. Psychiatry / social consult are appreciated. Patient will benefit outpatient psychiatry care. CHF: Right heart failure most likely secondary to underlying COPD in the setting of significant smoking history. Most recent ECHO in November 2015 with LVEF of 55-60% but of poor quality and technically not adequate for the assessment of right heart function and pressures. Takes metoprolol 25 mg PO BID and furosemide 60 mg PO QD. Holding metoprolol and furosemide in the setting of hypotension. Repeat echo on 05/09 shows EF 55-60% with abnormal left ventricular diastolic filling pattern for age. Nicotine dependence: Currently smokes 1 PPD. Has smoked for about 40 years. Nicotine patch 21 mg administered. Insomnia: Continue home trazodone 50 mg PO QHS. Diet: Consistent carbohydrate with 2 g Na restriction DVT PPx: HSQ and ALPs CODE: FULL Problem List: 1. Hypomagnesemia 2. Hypophosphatemia 3. Proximal humerus fracture Pain Ratin Pain Location: Rt. humeral fracture Pain Goal: Pain 4 or less Pain Plan: IV morphine 7-10 vicodin 4-6 Tomorrow's Labs & Rationales: CBC, BEP, Mg, Phos DVT/Prophylaxis: pharmacological Discharge Plan Discharge Disposition: STR/NH Stable for Discharge? No EMANI GALDAMEZ MD 05/10/16 1229: Attending MD Review Statement Attending Statement Attending MD Statement: examined this patient, discuss w/resident/PA/[employer], discussed with nursing, amended to note Attending Assessment/Plan: Mr. Cintron is sitting in a chair today. He notes some swelling of his right hand and continues in pain secondary to his fracture. He denies chest pain, palpitations, and shortness of breath. He is afebrile and mildly tachycardic. Systolic blood pressure remains in the 80-90 range. He is saturating satisfactorily on room air. His pulmonary exam reveals good air exchange and no abnormal sounds. Cardiac rhythm is regular in rate as mentioned above is mildly tachycardic. His abdomen is soft and nontender. His right hand and both lower extremities are mildly edematous. He shows no signs of ethanol withdrawal. His anemia is stable. Potassium today is 4.7. His phosphorus and magnesium while improving remain low. We should continue to monitor his H&H as well as his electrolytes, phosphorus, and magnesium. We can discontinue parenteral potassium and follow-up with a repeat PT level this evening. Should continue oral repletion of magnesium and phosphorus. We should continue his present analgesia for his fracture and also continue PT. Cardiology continues to follow as well as endocrine. We will follow up on his echocardiogram. We await psychiatry input concerning his ethanol abuse."
[2016-05-10 08:20] VITALS: BP 105/60
--- NOTE | 2016-05-10 12:41 | PN- Cardiology ---
Subjective Subjective: Overall, the patient appears stable. No new issues or symptoms. Objective Vital Signs and I&Os Vital Signs Date Time Temp Pulse Resp B/P Pulse O2 O2 Flow FiO2 Ox Delivery Rate 05/10 08 98.0 119 18 105/60 93 Room Air 05/10 0015 98.5 100 20 110/60 95 Room Air 05/09 1530 97.9 94 20 112/60 94 Room Air Intake & Output 05/10 1600 05/10 0800 05/10 0000 05/09 1600 05/09 0800 05/09 0000 Intake Total 940 1250 1950 1040 1200 Output Total 500 690 700 500 600 Balance 931 681 9692 540 600 Intake, IV 700 800 950 800 800 Intake, Oral 900 510 4315 240 400 Number 0 Bowel Movements Output, Urine 500 690 700 500 600 Physical Exam: General Appearance Alert, Oriented X3, No Acute Distress Skin normal HEENT normal Cardiovascular Regular Rate, Normal S1, Normal S2, no audible murmurs Lungs Clear to Auscultation and percussion bilaterally Abdomen Soft, No Tenderness, Positive Bowel Sounds Extremities No Clubbing, No Cyanosis, No Edema Current Medications: Current Medications Sig/Williams Start time Last Medication Dose Route Stop Time Status Admin Acetaminophen/ 1 TAB Q6P PRN 05/07 0315 AC 05/10 Hydrocodone Bitart PO 0921 Aspirin 81 MG DAILY 05/07 1000 AC 05/10 PO 0921 Atorvastatin Calcium 20 MG DAILY@1700 05/08 1700 AC 05/09 PO 1719 Duloxetine HCl 30 MG DAILY 05/07 1000 AC 05/10 PO 0921 Ferrous Sulfate 325 MG DAILY 05/07 1000 AC 05/10 PO 0921 Folic Acid 1 MG DAILY 05/07 1000 AC 05/10 PO 0921 Heparin Sodium 5,000 UNIT Q8 05/07 0600 AC 05/10 (Porcine) SC 0540 Insulin Aspart 0 TIDAC 05/07 0800 AC 05/10 SC 1231 Lorazepam 1 MG Q2P PRN 05/07 0315 AC PO Magnesium Oxide 400 MG ONE ONE 05/09 1800 DC 05/09 PO 05/09 1801 2209 Magnesium Sulfate 1 GM Q2H 05/10 1130 AC 05/10 Dextrose/Water 100 ML IV 05/10 1529 1232 Morphine Sulfate 1 MG Q4P PRN 05/07 1600 AC 05/10 IV 0217 Multivitamins 1 TAB DAILY 05/07 1000 AC 05/10 PO 0921 Nicotine 21 MG DAILY 05/07 1000 AC 05/10 TOP 0920 Nystatin 1 MISSY TIDPRN PRN 05/09 0400 TOP Omeprazole 40 MG DAILY AC 05/07 0700 AC 05/10 PO 0828 Patient Medication 1 ED .STK-MED ONE 05/09 1352 DC Teaching ED 05/09 1353 Phosphate 250 MG PC AND AT BEDTIME 05/08 2100 DC 05/09 PO 2209 Phosphate 250 MG PC AND AT BEDTIME 05/07 1800 AC 05/10 PO 1231 Potassium Chloride 40 MEQ Q6H 05/08 0130 AC 05/10 Sodium Chloride 1,000 ML IV 0218 Potassium Chloride 20 MEQ BID 05/07 1000 AC 05/10 PO 0920 Potassium Phosphate 15 mMol Q4H 05/09 1800 DC 05/09 Sodium Chloride 250 ML IV 05/09 2159 1719 Potassium Phosphate 15 mMol Q4H 05/09 1200 DC 05/09 Sodium Chloride 250 ML IV 05/09 1559 1242 Thiamine HCl 100 MG DAILY 05/07 1000 AC 05/10 PO 0921 Trazodone HCl 50 MG QPM 05/07 2200 AC 05/09 PO 2209 Results Last 48 Hrs of Labs/Mics: Laboratory Tests 05/10/16 0924: Anion Gap 9, Estimated GFR > 60, BUN/Creatinine Ratio 6.7 L, Phosphorus 1.8 L, Magnesium 1.0 L 05/09/16 0905: Anion Gap 6, Estimated GFR > 60, BUN/Creatinine Ratio 7.8, Phosphorus 0.8 *L, Magnesium 1.4 L, CBC w Diff NO MAN DIFF REQ, RBC 2.76 L, MCV 88.6, MCH 30.6, RDW 12.7, MPV 7.9, Gran % 80.8 H, Lymphocytes % 13.2 L, Monocytes % 5.1, Eosinophils % 0.5, Basophils % 0.4, Absolute Granulocytes 3.3, Absolute Lymphocytes 0.5 L, Absolute Monocytes 0.2, Absolute Eosinophils 0, Absolute Basophils 0, PUBS MCHC 34.5 05/08/16 2250: Anion Gap 6, Estimated GFR > 60, BUN/Creatinine Ratio 8.0, Phosphorus 0.6 *L, Magnesium 1.5 L 05/08/16 2000: Sodium Cancelled, Potassium Cancelled, Chloride Cancelled, Carbon Dioxide Cancelled, Anion Gap Cancelled, BUN Cancelled, Creatinine Cancelled, BUN/ Creatinine Ratio Cancelled 05/08/161814: Anion Gap 10, Estimated GFR > 60, BUN/Creatinine Ratio 8.0, Phosphorus 0.6 *L, Magnesium 1.4 L, Acetone Level NEGATIVE Assessment/Plan Assessment/Plan Assessment: 1. Chronic HFpEF, stable 2. Syncope, likely secondary to volume depletion 3. Hypotension likely secondary to volume depletion 4. Acute kidney injury, improving 5. Hypokalemia 6. Significant hypomagnesemia-the patient's magnesium level is 1.0 today Recommendations: -Continue current medical management -Continue as per orthopedics, outpatient visit scheduled -Out of bed as tolerated -Aggressively replete magnesium with IV magnesium today and continued oral magnesium 400 mg magnesium oxide twice a day subsequently. Follow-up levels in the morning -If not already performed, please recheck orthostatic heart rate and blood pressure. Continue telemetry? Yes
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
--- NOTE | 2016-05-10 17:05 | ECHOCARDIOGRAM REPORT ---
MAGGIE ROONEY Age: 56 : 1960 Gender: M Exam Date: 05/09/2016 18:51 Exam Location: [address] [place] [address] A Ht (in): 72 Wt (lb): 195 BSA: 2.13 BP: 92 / 56 Ordering Physician: KWAME GRUBBS MD Referring Physician: Alexa Forbes MD Technologist: Julisa Castle [facility] Room Number: [id number] Indications: HYPOTENSION Rhythm: Sinus Technical Quality: Poor, Technically difficult study FINDINGS Left Ventricle Normal size left ventricle. No obvious regional wall motion abnormalities. Normal left ventricular ejection fraction estimated at 55-60%. Abnormal left ventricular diastolic filling pattern for age. Right Ventricle Right ventricle not well visualized. Right Atrium Right atrium not well visualized, grossly normal. Left Atrium Left atrial size at the upper limits of normal. Mitral Valve Mitral valve thickened. Mild mitral regurgitation. Aortic Valve Trileaflet aortic valve. Diffuse thickening (sclerosis) of the aortic valve cusps without reduced excursion. No aortic stenosis. No aortic regurgitation. Tricuspid Valve Tricuspid valve not well visualized. Pulmonic Valve Pulmonic valve not well visualized. Pericardium No pericardial effusion. Great Vessels Aortic root and proximal ascending aorta not well visualized, grossly normal. CONCLUSIONS 1. This was a technically very difficult and limited examination due to the patient's body habitus 2. Aortic sclerosis is present with no obvious stenosis or insufficiency. 3. Mitral leaflet thickening is present with mild mitral insufficiency. 4. There is no pericardial fluid detected. 5. The left ventricular chamber size is normal with a normal ejection fraction. There are no obvious resting wall motion abnormalities. 6. The right heart structures could not be accurately assessed. The RV systolic pressure could not be assessed on this examination. Alexa Forbes M.D. (Electronically Signed) Final Date: 10 May 2016 17:04 MEASUREMENTS (Male / Female) Normal Values 2D ECHO LV Diastolic Diameter PLAX 4.6 cm 4.2 - 5.9 / 3.9 - 5.3 cm LV Systolic Diameter PLAX 2.4 cm 2.1 - 4.0 cm LV Fractional Shortening PLAX 47.8 % 25 - 46 % LV Ejection Fraction 2D Teich 79.3 % IVS Diastolic Thickness 0.9 cm LVPW Diastolic Thickness 1.0 cm LV Relative Wall Thickness 0.4 RV Internal Dim ED PLAX 3.0 cm 1.9 - 3.8 cm LVOT Diameter 2.1 cm Aortic Root Diameter 3.1 cm LA Systolic Diameter LX 3.1 cm 3.0 - 4.0 / 2.7 - 3.8 cm LA Volume 34.0 cm 18 - 58 / 22 - 52 cm Ascending Aorta Diameter 3.3 cm DOPPLER AV Peak Velocity 136.0 cm/s AV Peak Gradient 7.4 mmHg AV Mean Velocity 92.0 cm/s AV Mean Gradient 4.0 mmHg AV Velocity Time Integral 23.1 cm LVOT Peak Velocity 122.0 cm/s LVOT Peak Gradient 6.0 mmHg LVOT Mean Velocity 77.7 cm/s LVOT Mean Gradient 3.0 mmHg LVOT Velocity Time Integral 21.1 cm LVOT Stroke Volume 73.1 cm AV Area Cont Eq vti 3.2 cm AV Area Cont Eq pk 3.1 cm MV Peak Velocity 106.0 cm/s MV Peak Gradient 4.5 mmHg MV Mean Velocity 65.7 cm/s MV Mean Gradient 2.0 mmHg Mitral E Point Velocity 70.1 cm/s Mitral A Point Velocity 108.0 cm/s Mitral E to A Ratio 0.6 MV PHT Velocity 85.1 cm/s MV Deceleration Hanson 347.0 cm/s MV Pressure Half Time 73.6 ms MV Area PHT 3.0 cm MV Deceleration Time 180.0 ms TR Peak Velocity 80.8 cm/s TR Peak Gradient 2.6 mmHg PV Peak Velocity 123.0 cm/s PV Peak Gradient 6.1 mmHg PV Mean Velocity 89.1 cm/s PV Mean Gradient 4.0 mmHg PV Velocity Time Integral 17.9 cm LV E' Lateral Velocity 9.6 cm/s Mitral E to LV E' Lateral Ratio 7.3 LV E' Septal Velocity 10.9 cm/s Mitral E to LV E' Septal Ratio 6.4
[2016-05-10 17:17] VITALS: BP 101/71
[2016-05-10 23:51] VITALS: BP 100/68
[2016-05-11 02:00] VITALS: BP 112/60
[2016-05-11 06:00] VITALS: BP 112/74
[2016-05-11 08:00] VITALS: BP 108/70
[2016-05-11 08:08] LABS: ABSOLUTE BASOPHIL COUNT 0 /CUMM (0.0-0.2); ABSOLUTE EOSINOPHIL COUNT 0.1 /CUMM (0.0-0.7); ABSOLUTE GRANULOCYTE CT 2.8 /CUMM (1.4-6.5); ABSOLUTE LYMPH COUNT 0.7 /CUMM (1.2-3.4); ABSOLUTE MONOCYTE COUNT 0.2 /CUMM (0.10-0.60); BASOPHIL % 0.6 % (0.0-2.0); GRANULOCYTE % 73.1 % (42.2-75.2); HEMATOCRIT 23.5 % (42-52); MEAN CORPUSCULAR HGB 31.4 PG (27.0-31.0); MEAN CORPUSCULAR HGB CONC 34.8 G/DL (33.0-37.0); MEAN PLATELET VOLUME 7.3 FL (7.4-10.4); PLATELET COUNT 140 /CUMM (130-400); RBC DISTRIBUTION WIDTH 13.4 % (11.5-14.5); RED BLOOD CELL CT 2.61 /CUMM (4.70-6.10); WHITE BLOOD CELL COUNT 3.8 /CUMM (4.8-10.8)
[2016-05-11 08:09] VITALS: BP 106/70
--- NOTE | 2016-05-11 09:13 | PN- Housestaff ---
"RAINA MORATAYA,ANNEMARIE 05/11/16 0912: Subjective Follow-up For: Hypophosphatemia Hypomagenesemia Rt. humeral fracture Complaints: pain scale (0-10) Tele-Events Since Last Visit: Sinus tachycardia NSR Subjective: He's sitting on chair with Rt. arm sling. He continously has pain on Rt. humeral fracture. No other complaints Review of Systems Constitutional: Denies: chills, fever, weakness. EENTM: Reports: no symptoms. Cardiovascular: Reports: palpitations, peripheral edema. Denies: chest pain, orthopena. Respiratory: Denies: cough, short of breath, sputum production, wheezing. Gastrointestinal: Denies: abdominal pain, diarrhea, nausea, vomiting. Genitourinary: Reports: no symptoms. Musculoskeletal: Reports: see HPI. Skin: Reports: no symptoms. Neurological/Psychological: Reports: no symptoms. Hematologic/Endocrine: Reports: no symptoms. Objective Last 24 Hrs of Vital Signs/I&O Vital Signs Date Time Temp Pulse Resp B/P Pulse O2 O2 Flow FiO2 Ox Delivery Rate 05/11 1400 88 05/11 1354 Room Air Room Air 05/11 1200 100 05/11 0809 98.3 110 18 106/70 97 Room Air 05/11 0800 120 20 108/70 05/11 0600 90 20 112/74 05/11 0200 88 20 112/60 05/10 2351 97.9 110 18 100/68 97 Room Air 05/10 1717 97.7 96 17 101/71 98 Room Air 05/10 1653 Room Air Room Air Intake & Output 05/11 1600 05/11 0800 05/11 0000 Intake Total 880 300 550 Output Total 450 400 690 Balance 430 -100 -140 Intake, IV 200 100 Intake, Oral 680 300 450 Number 3 1 Bowel Movements Output, Urine 450 400 690 Patient 194 lb Weight Physical Exam General Appearance: Alert, Oriented X3, Cooperative, No Acute Distress Skin: No Rashes, No Breakdown, LE edema HEENT: Atraumatic, PERRLA, EOMI, Mucous Membr. moist/pink Neck: Supple, No JVD, No LAD Lymphatic: Cervical nl Cardiovascular: Regular Rate, Normal S1, Normal S2, No Murmurs Lungs: Clear to Auscultation, Normal Air Movement Abdomen: Normal Bowel Sounds, Soft, No Tenderness Neurological: Normal Speech, Strength at 5/5 X4 Ext, Normal Tone, Sensation Intact Extremities: chronic LE edema, on Rt. arm sling Vascular: Normal Pulses, Pulses Symmetrical Current Medications: Current Medications Sig/Williams Start time Last Medication Dose Route Stop Time Status Admin Acetaminophen/ 1 TAB Q6P PRN 05/07 0315 AC 05/11 Hydrocodone Bitart PO 1300 Aspirin 81 MG DAILY 05/07 1000 AC 05/11 PO 0910 Atorvastatin Calcium 20 MG DAILY@1700 05/08 1700 AC 05/10 PO 1700 Duloxetine HCl 30 MG DAILY 05/07 1000 AC 05/11 PO 0910 Ferrous Sulfate 325 MG DAILY 05/07 1000 AC 05/11 PO 0910 Folic Acid 1 MG DAILY 05/07 1000 AC 05/11 PO 0910 Heparin Sodium 5,000 UNIT Q8 05/07 0600 AC 05/11 (Porcine) SC 1458 Insulin Aspart 0 TIDAC 05/07 0800 AC 05/11 SC 1259 Lorazepam 1 MG Q2P PRN 05/07 0315 AC PO Magnesium Oxide 400 MG BID 05/10 2200 AC 05/11 PO 0910 Magnesium Sulfate 1 GM Q2H 05/11 1100 DC 05/11 Dextrose/Water 100 ML IV 05/11 1459 1501 Morphine Sulfate 1 MG Q4P PRN 05/07 1600 AC 05/11 IV 1502 Multivitamins 1 TAB DAILY 05/07 1000 AC 05/11 PO 0910 Nicotine 21 MG DAILY 05/07 1000 AC 05/11 TOP 0910 Nystatin 1 MISSY TIDPRN PRN 05/09 0400 AC TOP Omeprazole 40 MG DAILY AC 05/07 0700 AC 05/11 PO 0633 Phosphate 250 MG PC AND AT BEDTIME 05/07 1800 AC 05/11 PO 1341 Potassium Chloride 40 MEQ Q6H 05/08 0130 DC 05/10 Sodium Chloride 1,000 ML IV 0218 Potassium Chloride 20 MEQ BID 05/07 1000 AC 05/11 PO 0910 Thiamine HCl 100 MG DAILY 05/07 1000 AC 05/11 PO 0910 Trazodone HCl 50 MG QPM 05/07 2200 AC 05/10 PO 2154 Last 24 Hrs of Lab/Sebas Results Last 24 Hrs of Labs/Mics: Laboratory Tests 05/11/16 0700: Anion Gap 7, Estimated GFR > 60, BUN/Creatinine Ratio 6.7 L, Phosphorus 2.6, Magnesium 1.4 L, Cortisol AM Sample 11.6, CBC w Diff NO MAN DIFF REQ, RBC 2.61 L, MCV 90.0, MCH 31.4 H, RDW 13.4, MPV 7.3 L, Gran % 73.1, Lymphocytes % 18.9 L, Monocytes % 5.4, Eosinophils % 2.0, Basophils % 0.6, Absolute Granulocytes 2.8, Absolute Lymphocytes 0.7 L, Absolute Monocytes 0.2, Absolute Eosinophils 0.1, Absolute Basophils 0, PUBS MCHC 34.8 05/11/16 0600: Hemoglobin A1c Pending Lines/Diet/Fluids Lines: peripheral lines Assessment/Plan Assessment: Patient is 56 y/o M with PMHx of right-sided heart failure, T2DM c/b peripheral neuropathy and alcohol abuse who presents after a near syncopal episode, with hypotension, hypokalemia and hypomagnesemia on admission. Problem list assessment and plan Near syncope/syncope: Most likely secondary to orthostatic hypotension in the setting of dehydration. Blood pressure has been on the low side, overnight went down to 60 systolic, in am remained in 80s. Attendings and dr. Reyes aware. No plan for ICU transfer yet as patient is asymptomatic. No tele events overnight. Will continue to monitor. KAM resolved Cr 1.6 on admission. 0.9 on 05/10, no need to usg kidney Baseline creatinine normal - 0.8 in December 2015. Continue to avoid nephrotoxic medications. Anion gap metabolic acidosis, resolved ABG 7.41|24|94|15 and anion gap was initially markedly elevated to 34 on admission. Closed to 10 on 05/08/16. Associated with concomitant metabolic alkalosis most likely secondary to volume contraction and compensatory respiratory alkalosis. Anion gap metabolic acidosis most likely secondary to alcoholic ketoacidosis. Nephrology consult was obtained, now resolved Right humeral fracture: S/p fall. XR R shoulder with fracture of the right proximal humeral shaft. Ortho consult was obtained CT upper ext shows commuted proximal humeral fracture. Right arm sling in place. Vicodin 1 tab PO Q6H PRN for moderate pain (scale 4-6) and morphine 2 mg IV Q4H PRN for severe pain (scale 7-10). f/u Orthopedic as outpatient. Hyponatremia resolved: Na 132 on admission. Hyperosmolar hyponatremia. U osm low 237. Now improved to 135 Hypokalemia resolved: Severe hypokalemia with K of 2.1 on admission and EKG changes including T wave inversions and prominent U waves. History of chronic hypokalemia likely secondary to alcohol abuse. Repletion was given with IV K and IVF with 40 mEq of KCl in NS @ 125 cc/hr. Now fluid is discontinued as k is 4.7 on 05/10. Hypomagnesemia : Magnesium 1.3 on admission. Likely secondary to alcohol abuse. Improved at 1.4 on 05/11. continue supplementation and monitor in am. Hypophosphatemia resolved: Critically low at 0.6 on 05/08 now improved to 1.8 on 05/10. Continue oral supplement and monitor level. T2DM: Takes metformin 500 mg PO QD and pioglitazone 30 mg PO QD at home. Holding oral hypoglycemic agents while inpatient. Accu-checks and low dose Novolog SSI TIDAC. BS is under control. Alcohol abuse: Admits to drinking several vodka drinks per day. On CIWA protocol to monitor for signs/symptoms of alcohol withdrawal. PO folic acid, thiamine and MVI. Psychiatry / social consult are appreciated. Patient will benefit outpatient psychiatry care. CHF: Right heart failure most likely secondary to underlying COPD in the setting of significant smoking history. Most recent ECHO in November 2015 with LVEF of 55-60% but of poor quality and technically not adequate for the assessment of right heart function and pressures. Takes metoprolol 25 mg PO BID and furosemide 60 mg PO QD. Holding metoprolol and furosemide in the setting of hypotension. Repeat echo on 05/09 shows EF 55-60% with abnormal left ventricular diastolic filling pattern for age. Nicotine dependence: Currently smokes 1 PPD. Has smoked for about 40 years. Nicotine patch 21 mg administered. Insomnia: Continue home trazodone 50 mg PO QHS. Diet: Consistent carbohydrate with 2 g Na restriction DVT PPx: HSQ and ALPs CODE: FULL Problem List: 1. Syncope, near 2. ETOH abuse 3. Right-sided congestive heart failure 4. KAM (acute kidney injury) 5. Type 2 diabetes mellitus 6. Hypomagnesemia Pain Ratin Pain Location: Rt. humerus fracture Pain Goal: Pain 7 or less Pain Plan: IV morphine PO vicodin Tomorrow's Labs & Rationales: BMP, Mg, Phos - now actively repleting electrolytes DVT/Prophylaxis: pharmacological Discharge Plan Discharge Disposition: STR/NH Stable for Discharge? No Anticipated Discharge (Day): tomorrow RUDOLPH MORATAYA,EMANI 05/11/16 1525: Objective Last 24 Hrs of Vital Signs/I&O Vital Signs Date Time Temp Pulse Resp B/P Pulse O2 O2 Flow FiO2 Ox Delivery Rate 05/11 1354 Room Air Room Air 05/11 1200 100 05/11 0809 98.3 110 18 106/70 97 Room Air 05/11 0800 120 20 108/70 05/11 0600 90 20 112/74 05/11 0200 88 20 112/60 05/10 2351 97.9 110 18 100/68 97 Room Air 05/10 1717 97.7 96 17 101/71 98 Room Air 05/10 1653 Room Air Room Air Intake & Output 05/11 1600 05/11 0800 05/11 0000 Intake Total 300 550 Output Total 400 690 Balance -100 -140 Intake, IV 100 Intake, Oral 300 450 Number 3 1 Bowel Movements Output, Urine 400 690 Patient 194 lb Weight Attending MD Review Statement Attending Statement Attending MD Statement: examined this patient, discuss w/resident/PA/CONDUIT MECHANIC, agreed w/resident/PA/CONDUIT MECHANIC, reviewed EMR data (avail), discussed with nursing, discussed with case mgmt, amended to note Attending Assessment/Plan: Mr. Cintron was seen earlier today and again at the time of this visit. He is lying in bed and appears comfortable and essentially has no complaints. He is afebrile with some postural tachycardia. His systolic blood pressure is now approximately 100. Pulmonary and cardiac exams are satisfactory. His abdomen is soft and nontender. His recent CIWA score was 4. His renal function, potassium, and phosphorus have corrected. Magnesium levels remained low. Glycemic control is good. He continues on a nicotine patch for tobacco dependence. We will continue to replete his magnesium both intravenously and orally. We will follow his renal function and other electrolytes. We will continue to monitor him for ethanol withdrawal. We will continue our present management of his diabetes. We will continue all other modalities that are in place. Should his magnesium improve he will be a possible discharge to [facility] in the a.m."
[2016-05-11] MEDS ORDERED: MAGNESIUM OXID400 M1 PO (14:43)
[2016-05-11] MEDS ORDERED: VITAMIN B-1100 MG PO (14:45)
[2016-05-11] MEDS ORDERED: Nicoderm TOP (14:46)
[2016-05-11] MEDS ORDERED: PHOS-NAK PACKE1 EACH PO (14:48)
--- NOTE | 2016-05-11 14:56 | Patient Discharge Instructions ---
Discharge Instructions General Discharge Information You were seen/treated for: Acute kidney injury, resolved Hypokalemia, resolved Hypomagnesemia, resolved Hypophosphatemia, resolved Rt. humeral fracture s/p sling Special Instructions: Please follow up with a primary doctor within 1 week after discharge. Please follow up with a account service associate within 1-2 weeks after discharge, po lasix was held. Please follow up with an orthopedic surgeon for Rt. humerus fracture management. Please follow up with a sergeant missile crewman for checking electrolytes. Please consider AA meeting with [facility] follow up for alcohol abuse. Diet Continue normal diet: Yes Recommended Diet: Regular Activity Full Activity/No Limits: Yes Activity Self Limited: Yes Other activity limits: Rt. humeral fracutre, patient needs continuous physical therapy Acute Coronary Syndrome Inclusion Criteria At DC or during hospital stay patient has or had the following: ACS DIAGNOSIS No Discharge Core Measures Meds if any: Prescribed or Continued at Discharge Meds if any: NOT Prescribed or Continued at Discharge Congestive Heart Failure Inclusion Criteria At DC or during hospital stay patient has or had the following: CHF DIAGNOSIS No Discharge Core Measures Meds if any: Prescribed or Continued at Discharge Meds if any: NOT Prescribed or Continued at Discharge Cerebrovascular accident Inclusion Criteria At DC or during hospital stay patient has or had the following: CVA/TIA Diagnosis No Discharge Core Measures Meds if any: Prescribed or Continued at Discharge Meds if any: NOT Prescribed or Continued at Discharge Venous thromboembolism Inclusion Criteria VTE Diagnosis No VTE Type NONE VTE Confirmed by (Test) NONE Discharge Core Measures - Per Current guidelines, there needs to be overlap - treatment for the first 5 days of Warfarin therapy. - If discharged on Warfarin prior to 5 days of - overlap therapy, the patient will need to be - assessed for post discharge needs including - *Post discharge parental anticoagulation - *Warfarin and/or parental anticoagulation education - *Follow up date to check INR post discharge At least 5 days overlap therapy as Inpatient No Meds if any: Prescribed or Continued at Discharge Note: Overlap Therapy is Warfarin and Anticoagulant Meds if any: NOT Prescribed or Continued at Discharge
[2016-05-11 16:00] VITALS: BP 102/70
[2016-05-11] MEDS ORDERED: HYDROCODON-ACE1 EAC2 PO (16:44)
--- NOTE | 2016-05-11 16:48 | Discharge Summary ---
See Addendum Visit Information Visit Dates Admission Date: 05/07/16 Discharge Date: 05/12/16 Hospital Course Course Attending Physician: EMANI GALDAMEZ MD Primary Care Physician: EMANI GALDAMEZ MD Consulting Request: 1 Consulting Specialty: Cardiology Consulting Physician: Dr. Shamika Mosquera Reason for Consult: syncope, hypokalemiam, nonsustained ventricular tachycardia Consulting Request: 2 Consulting Specialty: Nephrology Consulting Physician: Dr. Adolfo Berumen Reason for Consult: Acute kidney injury, hypokalemia Consulting Request: 3 Consulting Specialty: Orthopedics Consulting Physician: Dr. Restrepo Reason for Consult: Rt. humeral fracture Consulting Request: 4 Consulting Specialty: Psychiatry Consulting Physician: Prabhjot Miller APRN Reason for Consult: Alcohol abuse Hospital Course: 56 y/o male with PMH of questionable right-sided heart failure, T2DM complicated with peripheral neuropathy, HTN, HLD and alcohol abuse BIBA for an episode of near syncope. Patient was in his usual state of health on day of admission, but he suddenly felt lightheaded while walking in the kitchen and fell down on the floor landing on his right shoulder. He denies loss of consciousness or head trauma. No other syncopal or presyncopal episodes. No diaphoresis, nausea or vomiting. However, he stated that he was on floor for 2 hours until he could crawl to phone and call for help. Once EMS arrived, pt was assited to sitting position in chair and he had passed out for about 10-12 seconds due to severe shoulder pain. He denied chest pain, palpitations or shortness of breath prior to this episode. He reported 3-4 days of not eating well with decreased appetite. Of note, he drinks 2 pints of vodka daily. Patient is a current smoker , with 1ppd x 40yrs. The patient had a similar presentation to [facility] in November/2015 and was hospitalized with hypotension, hypokalemia and hypomagnesemia and treated with IVF hydration and electrolyte replacement. During that admission, he was found to be anemic and transfused 1 unit of pRBCs. An ECHO (12/18/15) had been performed showing normal LVEF of 55-60% but was technically suboptimal and inadequate for the assessment of right heart function and pressures. Initial V/S: 96.7F IA 73 RR 18 BP 95/58 97% on RA General Appearance Alert, Oriented X3, No Acute Distress Skin No Rashes HEENT Atraumatic, Mucous Membr. moist/pink Cardiovascular Regular Rate, Normal S1, Normal S2 Lungs Clear to Auscultation Abdomen Soft, No Tenderness, Positive Bowel Sounds Extremities No Clubbing, No Cyanosis, No Edema, Unable to Examine Right Shoulder Due to Pain Labs WBC: 11.4 with granulocytosis 85.9%, Na 132, K 2.1, Cl 76, HCO3 22, glucose 174, AG 34, lactic acid 2.3, Serum Osm 307, BUN/Cr 26/1.6, serum alcohol < 10, acetone negative, urine ketone 40 EKG: Sinus rhythm, HR 78, Incomplete RBBB, T wave inversions and prominent U waves Right shoulder and arm xray: Comminuted fracture of the proximal right humerus. No acute cardiopulmonary findings. Patient was treated in the hospital for following problem lists; 1. Near syncope/syncope with hypotension Orhotstatic BP was checked: lying 80/58, sitting 82/58. In ED, BP was further decreased to dropped to 76/44 and improved to 98/65 after receiving 2 bags of IV normal saline. He was taking po laxis 60mg daily for heart failure. His near syncope/syncope with hypotension was likely secondary to volume depletion exacerbated by diuretic therapy. Cardiology consult was obtained. Lasix was held and IV fluid was continued. Patient was monitored on telemetry floor for further arrhythmias; he had sinus tachycardia/NSR after all electrolytes were corrected. Blood pressure has been on the lower side accoding to his PCP, Dr. Galdamez. Cortisol am level was checked normal as 11.2. Patient likely has orthostatic hypotension. Avoid dehydration. Patient needs to follow up with a primary doctor and fleet technician after discharge. 2. KAM/ hypokalemia: KAM likely secondary to poor by mouth intake and ongoing furosemide use as well as not taking his potassium supplements because he forgets. BUN/Cr and potassium improved after IV KCL + NS back to baseline. 3. High anion gap metabolic acidosis/respiratory alkalosis/metabolic alkalosis Anion gap 34 with lactic acidosis of 2.3 on admission. This may reflect hypotension/hypoperfusion as he did have a lactic acidosis. It is also likely related to alcoholic ketoacidosis. He was monitored with strict I's and O's and daily weights. After IV fluid resuscitation, aniop gap was closed to 10 on 2/13/ 17. 4. Alcohol abuse / hypomagnesemia / hypophosphatemia: He was monitored on [facility] protocol to monitor for signs/symptoms of alcohol withdrawal. PO folic acid, thiamine and MVI were given. His initial Mg was 1.3 and phosphorus was 1.9. However, his phosphorus level was decreased from 1.9 to 0.7 on 05/08. Magnesium and phosphorus were aggressively repleted with parenteral and oral supplementation. Mg 1.7 and phos 3.4 on on 05/12. Psychiatry and social consults were obtained regarding alcohol abuse. He will benefit from AA meeting with [facility] follow up. 5. Right humeral fracture: s/p fall. XR Rt. shoulder with fracture of the right proximal humeral shaft. Ortho consult was obtained from Dr. Restrepo. It was recommended to continue conservative treatment with plastor and arm sling. Please follow up with Dr. Restrepo as outpatient and continue physical therapy. 6. T2DM: Metformin 500 mg PO QD and pioglitazone 30 mg PO QD were held. Holding oral hypoglycemic agents while inpatient. Accu-checks and low dose Novolog SSI TIDAC were given. Glucose was underl good control. 7. Questionable Rt. sided CHF: Right heart failure most likely secondary to underlying COPD in the setting of significant smoking history. Lasix was held due to hypotension. Most recent ECHO in November 2015 with LVEF of 55-60% but of poor quality and technically not adequate for the assessment of right heart function and pressures. Patient takes metoprolol 25 mg PO BID and furosemide 60 mg PO QD. Repeat echo showed that the left ventricular chamber size is normal with a normal ejection fraction. There are no obvious resting wall motion abnormalities. The right heart structures could not be accurately assessed. The RV systolic pressure could not be assessed on this examination. His metoprolol and furosemide were held in the setting of hypotension. Please follow up with a fleet technician as outpatient. DVT ppx: SC hep, full code. Allergies: Coded Allergies: NO KNOWN ALLERGIES (12/17/15) Disposition Summary Disposition Principal Diagnosis: Near syncope/syncope with hypotension KAM High anion gap metabolic acidosis with lactic acidosis & alcoholic ketoacidosis Alcohol abuse hypokalemia hypomagnesemia hypophosphatemia Right humeral fracture s/p fall Additional Diagnosis: Questionable Rt. sided CHF Orthostatic hypotension Discharge Disposition: SNF Discharge Instructions General Discharge Information Code Status: Full Code Patient's Diet: Heart healthy diet Patient's Activity: Increase as tolerated, continue physical therapy Follow-Up Instructions/Appts: Please follow up with a primary doctor within 1 week after discharge. Please follow up with a fleet technician within 1-2 weeks after discharge, po lasix was held. Please follow up with an orthopedic surgeon for Rt. humerus fracture management. Please follow up with a lacrosse coach for checking electrolytes. Please consider AA meeting with [facility] follow up for alcohol abuse. Medications at Discharge Discharge Medications: Stop taking the following medications: Metoprolol Tartrate (Metoprolol Tartrate) 25 MG TABLET ORAL TWICE DAILY Qty = 60 Oxycodone HCl/Acetaminophen (Oxycodone-Acetaminophen 5-325) 1 EACH TABLET ORAL 2 x Daily as needed as needed for PAIN Qty = 120 Furosemide (Lasix) 20 MG TABLET ORAL DAILY Qty = 30 Continue taking these medications: Atorvastatin Calcium (Lipitor) 20 MG TABLET 1 Tablet ORAL DAILY Pioglitazone HCl (Actos) 30 MG TABLET 1 Tablet ORAL DAILY Esomeprazole (Nexium) 40 MG CAPSULE.DR 1 Capsule ORAL DAILY Metformin HCl (Metformin HCl) 500 MG TABLET 1 Tablet ORAL DAILY Qty = 60 Comments: NOT GIVEN INPATIENT Duloxetine HCl (Duloxetine HCl) 30 MG CAPSULE.DR 1 Capsule ORAL DAILY Qty = 30 Comments: Last Taken:12/21/15 Time: 8:45 AM Trazodone HCl (Trazodone HCl) 50 MG TABLET 1 Tablet ORAL Every night Qty = 30 Comments: Last Taken:12/20/15 Time:10:45 PM Ferrous Sulfate (Ferrous Sulfate) 325 MG TABLET.DR 1 Tablet ORAL DAILY Qty = 30 Instructions: . Comments: Last Taken:12/21/15 Time:8:45 AM Aspirin (Aspirin*) 81 MG TAB.CHEW 1 Tablet ORAL DAILY Qty = 30 Instructions: . Comments: Last Taken:12/21/15 Time:8:45 AM Folic Acid (Folic Acid) 1 MG TABLET 1 Tablet ORAL DAILY Qty = 90 Potassium Bicarbonate/Cit AC (Klor-Con-Ef 25 Meq Tab Eff) 25 MEQ TABLET.EFF 1 Tablet ORAL DAILY Qty = 90 Gabapentin (Gabapentin) 300 MG CAPSULE 1 Capsule ORAL THREE TIMES DAILY Start taking the following new medications: [Nicoderm] 21 Milligram On the skin DAILY Days = 30 No Refills Naph,Mb-Db/K pH,Mbdb (Phos-Nak Packet) 280 MG-160 MG-250 MG POWD.PACK 250 Milligram ORAL AFTER MEALS AND AT BEDTIME Days = 30 No Refills Magnesium Oxide (Magnesium Oxide) 400 MG TABLET 400 Milligram ORAL TWICE DAILY Days = 30 No Refills Thiamine HCl (Vitamin B-1) 100 MG TABLET 100 Milligram ORAL DAILY Days = 30 No Refills Hydrocodone/Acetaminophen (Hydrocodon-Acetaminophen 5-325) 5 MG-325 MG TABLET 1 Tablet ORAL EVERY SIX HOURS NEEDED as needed for PAIN SCALE 7-10 Days = 14 No Refills Cholecalciferol (Vitamin D3) 1,000 UNIT TABLET 1,000 International Unit ORAL DAILY Qty = 30 No Refills Copies To: RUDOLPH MORATAYA,EMANI Hodgson; ADOLFO MORATAYA,ALEXIS Jordan; BLANCHE MORATAYA,Ryan VALLE; ORESTES MORATAYA,LOIS Benson; JERMAINE BENDER MD
--- NOTE | 2016-05-11 19:47 | PN- Cardiology ---
Subjective Subjective: NO new issues. No new CV complaints. Rhythm stable. Objective Vital Signs and I&Os Vital Signs Date Time Temp Pulse Resp B/P Pulse O2 O2 Flow FiO2 Ox Delivery Rate 05/11 1800 104 05/11 1600 98.4 91 20 102/70 05/11 1600 98.4 91 20 102/70 97 Room Air 05/11 1400 88 05/11 1354 Room Air Room Air 05/11 1200 100 05/11 0809 98.3 110 18 106/70 97 Room Air 05/11 0800 120 20 108/70 05/11 0600 90 20 112/74 05/11 0200 88 20 112/60 05/10 2351 97.9 110 18 100/68 97 Room Air Intake & Output 05/11 1600 05/11 0800 05/11 0000 05/10 1600 05/10 0800 05/10 0000 Intake Total 880 147 822 0992 940 1250 Output Total 450 400 690 300 500 690 Balance 430 -100 -140 800 440 560 Intake, IV 200 100 500 700 800 Intake, Oral 680 300 450 600 240 450 Number 3 1 Bowel Movements Output, Urine 450 400 690 300 500 690 Patient 194 lb Weight Physical Exam: General Appearance Alert, Oriented X3, No Acute Distress Skin normal HEENT normal Cardiovascular Regular Rate, Normal S1, Normal S2, no audible murmurs Lungs Clear to Auscultation and percussion bilaterally Abdomen Soft, No Tenderness, Positive Bowel Sounds Extremities No Clubbing, No Cyanosis, No Edema Current Medications: Current Medications Sig/Williams Start time Last Medication Dose Route Stop Time Status Admin Acetaminophen/ 1 TAB Q6P PRN 05/07 314 AC 05/11 Hydrocodone Bitart PO 1300 Aspirin 81 MG DAILY 05/07 1000 AC 05/11 PO 0910 Atorvastatin Calcium 20 MG DAILY@1700 05/08 1700 AC 05/11 PO 1849 Duloxetine HCl 30 MG DAILY 05/07 1000 AC 05/11 PO 0910 Ferrous Sulfate 325 MG DAILY 05/07 1000 AC 05/11 PO 0910 Folic Acid 1 MG DAILY 05/07 1000 AC 05/11 PO 0910 Heparin Sodium 5,000 UNIT Q8 05/07 0600 AC 05/11 (Porcine) SC 1458 Insulin Aspart 0 TIDAC 05/07 0800 AC 05/11 SC 1800 Lorazepam 1 MG Q2P PRN 05/07 0315 AC PO Magnesium Oxide 400 MG BID 05/10 2200 AC 05/11 PO 0910 Magnesium Sulfate 1 GM Q2H 05/11 1100 DC 05/11 Dextrose/Water 100 ML IV 05/11 1459 1501 Morphine Sulfate 1 MG Q4P PRN 05/07 1600 AC 05/11 IV 1918 Multivitamins 1 TAB DAILY 05/07 1000 AC 05/11 PO 0910 Nicotine 21 MG DAILY 05/07 1000 AC 05/11 TOP 0910 Nystatin 1 MISSY TIDPRN PRN 05/09 0400 AC TOP Omeprazole 40 MG DAILY AC 05/07 0700 AC 05/11 PO 0633 Phosphate 250 MG PC AND AT BEDTIME 05/07 1800 AC 05/11 PO 1850 Potassium Chloride 20 MEQ BID 05/07 1000 AC 05/11 PO 0910 Thiamine HCl 100 MG DAILY 05/07 1000 AC 05/11 PO 0910 Trazodone HCl 50 MG QPM 05/07 2200 AC 05/10 PO 2154 Results Last 48 Hrs of Labs/Mics: Laboratory Tests 05/11/16 0700: Anion Gap 7, Estimated GFR > 60, BUN/Creatinine Ratio 6.7 L, Phosphorus 2.6, Magnesium 1.4 L, Cortisol AM Sample 11.6, CBC w Diff NO MAN DIFF REQ, RBC 2.61 L, MCV 90.0, MCH 31.4 H, RDW 13.4, MPV 7.3 L, Gran % 73.1, Lymphocytes % 18.9 L, Monocytes % 5.4, Eosinophils % 2.0, Basophils % 0.6, Absolute Granulocytes 2.8, Absolute Lymphocytes 0.7 L, Absolute Monocytes 0.2, Absolute Eosinophils 0.1, Absolute Basophils 0, PUBS MCHC 34.8 05/11/16 0600: Hemoglobin A1c Pending 05/10/16 0924: Anion Gap 9, Estimated GFR > 60, BUN/Creatinine Ratio 6.7 L, Phosphorus 1.8 L, Magnesium 1.0 L Assessment/Plan Assessment/Plan Assessment: 1. Chronic HFpEF, stable 2. Syncope, likely secondary to volume depletion 3. Hypotension likely secondary to volume depletion 4. Acute kidney injury, improving 5. Hypokalemia 6. Significant hypomagnesemia-the patient's magnesium level is 1.0 today Recommendations: -Continue current medical management -Continue as per orthopedics, outpatient visit scheduled -Out of bed as tolerated -Aggressively replete and monitor magnesium. Continue oral magnesium 400 mg magnesium oxide twice a day subsequently. Follow-up levels in the morning -If not already performed, please recheck orthostatic heart rate and blood pressure. Continue telemetry? No
[2016-05-11 23:42] VITALS: BP 90/63
[2016-05-12 08:35] VITALS: BP 112/76
--- NOTE | 2016-05-12 08:59 | PN- Housestaff ---
"Subjective Follow-up For: Hypomagesemia Hypophosphatemia Rt. humerus fracture Complaints: pain scale (0-10) (11/02) Tele-Events Since Last Visit: NSR, SB, PACs Subjective: He didn't sleep well. He has 8/10 Rt. humeur pain. No complaints of chest pain/shortness of breath, fever/chills, n/v/abdominal pain. He has mild tremor on Lt. arm but CIWA has been stable 0-2 Review of Systems Constitutional: Denies: chills, fever, weakness. EENTM: Reports: no symptoms. Cardiovascular: Denies: chest pain, palpitations, peripheral edema, syncope. Respiratory: Denies: cough, short of breath, sputum production, wheezing. Gastrointestinal: Denies: abdominal pain, constipation, nausea, vomiting. Genitourinary: Reports: no symptoms, frequency. Musculoskeletal: Reports: see HPI, joint pain. Skin: Reports: no symptoms. Neurological/Psychological: Reports: paresthesia. Hematologic/Endocrine: Reports: no symptoms. Immunologic/Allergic: Reports: no symptoms. Objective Last 24 Hrs of Vital Signs/I&O Vital Signs Date Time Temp Pulse Resp B/P Pulse O2 O2 Flow FiO2 Ox Delivery Rate 05/12 0835 98.2 103 19 112/76 97 Room Air 05/11 2342 98.1 98 20 90/63 96 Room Air 05/11 2200 98 05/11 2000 94 05/11 1800 104 05/11 1600 98.4 91 20 102/70 05/11 1600 98.4 91 20 102/70 97 Room Air 05/11 1400 88 05/11 1354 Room Air Room Air Intake & Output 05/12 1600 05/12 0800 05/12 0000 Intake Total 200 700 Output Total 500 875 Balance -300 -175 Intake, Oral 200 700 Number 1 Bowel Movements Output, Urine 500 875 Physical Exam General Appearance: Alert, Oriented X3, Cooperative, No Acute Distress Skin: No Rashes, No Breakdown, No Significant Lesion HEENT: Atraumatic, PERRLA, EOMI, Mucous Membr. moist/pink Neck: Supple, No JVD, No LAD Lymphatic: Cervical nl Cardiovascular: Regular Rate, Normal S1, Normal S2, No Murmurs Lungs: Clear to Auscultation, Normal Air Movement Abdomen: Normal Bowel Sounds, Soft, No Tenderness Neurological: Normal Speech, Normal Tone, Sensation Intact, Cranial Nerves 3-12 NL Extremities: No Cyanosis, No Edema, Normal Pulses, No Tenderness/Swelling Vascular: Normal Pulses, Pulses Symmetrical Current Medications: Current Medications Sig/Williams Start time Last Medication Dose Route Stop Time Status Admin Acetaminophen/ 1 TAB Q6P PRN 05/07 0315 AC 05/12 Hydrocodone Bitart PO 0755 Aspirin 81 MG DAILY 05/07 1000 AC 05/12 PO 0925 Atorvastatin Calcium 20 MG DAILY@1700 05/08 1700 AC 05/11 PO 1849 Cholecalciferol 1,000 IU DAILY 05/12 1000 AC 05/12 PO 0925 Duloxetine HCl 30 MG DAILY 05/07 1000 AC 05/12 PO 0925 Ferrous Sulfate 325 MG DAILY 05/07 1000 AC 05/12 PO 0925 Folic Acid 1 MG DAILY 05/07 1000 AC 05/12 PO 0925 Heparin Sodium 5,000 UNIT Q8 05/07 0600 AC 05/12 (Porcine) SC 0543 Insulin Aspart 0 TIDAC 05/07 0800 AC 05/12 SC 1301 Lorazepam 1 MG Q2P PRN 05/07 0315 PO Magnesium Oxide 400 MG BID 05/10 2200 AC 05/12 PO 0925 Magnesium Sulfate 1 GM .STK-MED ONE 05/11 1452 DC IV 05/11 1453 Magnesium Sulfate 1 GM Q2H 05/11 1100 DC 05/11 Dextrose/Water 100 ML IV 05/11 1459 1501 Morphine Sulfate 1 MG Q4P PRN 05/07 1600 AC 05/12 IV 0925 Multivitamins 1 TAB DAILY 05/07 1000 AC 05/12 PO 0925 Nicotine 21 MG DAILY 05/07 1000 AC 05/12 TOP 0924 Nystatin 1 MISSY TIDPRN PRN 05/09 0400 TOP Omeprazole 40 MG DAILY AC 05/07 0700 AC 05/12 PO 0541 Phosphate 250 MG PC AND AT BEDTIME 05/07 1800 AC 05/12 PO 0924 Potassium Chloride 20 MEQ BID 05/07 1000 AC 05/12 PO 0924 Thiamine HCl 100 MG DAILY 05/07 1000 AC 05/12 PO 0925 Trazodone HCl 50 MG QPM 05/07 2200 AC 05/11 PO 2111 Last 24 Hrs of Lab/[place] Results Last 24 Hrs of Labs/Mics: Laboratory Tests 05/12/16 0640: Anion Gap 6, Estimated GFR > 60, BUN/Creatinine Ratio 6.0 L, Phosphorus 3.4, Magnesium 1.7 Orders CIWA Score (last 24 hrs): 0-2-2-0-0 Lines/Diet/Fluids Lines: peripheral lines Assessment/Plan Assessment: Patient is 56 y/o M with PMHx of right-sided heart failure, T2DM c/b peripheral neuropathy and alcohol abuse who presents after a near syncopal episode, with hypotension, hypokalemia and hypomagnesemia on admission. Problem list assessment and plan Near syncope/syncope: Most likely secondary to orthostatic hypotension in the setting of dehydration/ lasix use. He also likely has orthostatic hypotention. cortisol level was normal, follow up with a PCP and drop man. KAM resolved Cr 1.6 on admission. 0.9 on 05/10, no need to usg kidney Baseline creatinine normal - 0.8 in December 2015. Continue to avoid nephrotoxic medications. Anion gap metabolic acidosis, resolved ABG 7.41|24|94|15 and anion gap was initially markedly elevated to 34 on admission. Closed to 10 on 05/08/16. High AG acidosis + resp. alkalosis + metabolic alkalosis. Most likely secondary to Lactic acidosis from hypoperfusion with alcoholic ketoacidosis. Now resolved Right humeral fracture: S/p fall. XR R shoulder with fracture of the right proximal humeral shaft. Ortho consult was obtained CT upper ext shows commuted proximal humeral fracture. Right arm sling in place. Vicodin 1 tab PO Q6H PRN for moderate pain (scale 4-6) and morphine 2 mg IV Q4H PRN for severe pain (scale 7-10). f/u Orthopedic as outpatient. Hyponatremia resolved: Na 132 on admission. Hyperosmolar hyponatremia. U osm low 237. Now improved to 134 on 05/12. Hypokalemia resolved: Severe hypokalemia with K of 2.1 on admission and EKG changes including T wave inversions and prominent U waves. History of chronic hypokalemia likely secondary to alcohol abuse. Repletion was given with IV K and IVF with 40 mEq of KCl in NS @ 125 cc/hr. Now fluid is discontinued as k is 4.7 on 05/10. Hypomagnesemia : Magnesium 1.3 on admission. Likely secondary to alcohol abuse. Improved at 1.4 on 05/11. continue supplementation and monitor in am. Hypophosphatemia resolved: Critically low at 0.6 on 05/08 now improved to 1.8 on 05/10. Now 3.4 on 05/12. Continue oral supplement and monitor level as outpatient. T2DM: Takes metformin 500 mg PO QD and pioglitazone 30 mg PO QD at home. Holding oral hypoglycemic agents while inpatient. Accu-checks and low dose Novolog SSI TIDAC. BS is under control. Alcohol abuse: Admits to drinking several vodka drinks per day. On CIWA protocol to monitor for signs/symptoms of alcohol withdrawal. PO folic acid, thiamine and MVI. Psychiatry / social consult are appreciated. Patient will benefit outpatient psychiatry care. CHF: Right heart failure most likely secondary to underlying COPD in the setting of significant smoking history. Most recent ECHO in November 2015 with LVEF of 55-60% but of poor quality and technically not adequate for the assessment of right heart function and pressures. Takes metoprolol 25 mg PO BID and furosemide 60 mg PO QD. Holding metoprolol and furosemide in the setting of hypotension. Repeat echo on 05/09 shows EF 55-60% with abnormal left ventricular diastolic filling pattern for age. Nicotine dependence: Currently smokes 1 PPD. Has smoked for about 40 years. Nicotine patch 21 mg administered. Insomnia: Continue home trazodone 50 mg PO QHS. Diet: Consistent carbohydrate with 2 g Na restriction DVT PPx: HSQ and ALPs CODE: FULL Problem List: 1. Hypophosphatemia 2. Hypokalemia 3. Hypomagnesemia 4. Type 2 diabetes mellitus 5. Right-sided congestive heart failure 6. Proximal humerus fracture 7. Syncope, near Pain Ratin Pain Location: Rt. humerus Fx Pain Goal: Pain 7 or less Pain Plan: continue pain pathway Tomorrow's Labs & Rationales: DC today DVT/Prophylaxis: pharmacological Consulting Request: Consulting Specialty: Psychiatry Consulting Physician: Prabhjot Miller APRN Reason for Consult: Alcohol abuse Discharge Plan Discharge Disposition: STR/NH Stable for Discharge? Yes Anticipated Discharge (Day): today If Discharged Today/In 24 Hrs: enter [facility] discharge ord, W-10/discharge paper done, DC summary done, CMR done"
[2016-05-12] MEDS ORDERED: VITAMIN D31000 UNI2 PO (09:07)
--- NOTE | 2016-05-12 12:27 | NUR ---
Referral received on 05/09/16 via electronic money order clerk. The patient is a 56 year old man, admitted to the hospital on 05/07/16 with hypokalemia and Syncope. Patient placed on CIWA for observation of withdrawal symptoms; minimal symptoms noted, save for some agitation and tremors. No benzos required. Nitesh minimizes his ETOH intake and declares "I'm not an alcoholic". It has been recommended that he go to short term rehabilitation and he has agreed with this recommendation. Bed has been secured at [facility] and it is expected that patient will discharge today. Please call me if other social work needs arise.
[2016-05-12] MEDS ORDERED: LASIX20 M1 PO (14:46)
[2016-05-12 15:03] VITALS: BP 112/76
--- NOTE | 2016-05-12 15:19 | PN- Att Addend ---
Attending Addendum Attending Brief Note Mr. Cintron was interviewed, examined, and his CMR reviewed. He states he is in considerable pain secondary to his right arm fracture but otherwise has no complaints. His vital signs are stable as his physical exam. Blood pressure anomalies have corrected as have his electrolyte abnormalities. At this time he is stable to be discharged to short-term rehabilitation.
[2016-05-12 16:21] VITALS: BP 155/87
== END 2016-05-12 17:05 | DRG 683 ==
LOC: ENRESERVDT → ENRESERVTM → ERH 22:50 → 1NO 05-07 01:02 → ENPENDDIS 05-07 01:02 → ERHI 05-07 01:02 → 1NO 05-07 02:44
PROVIDERS: Internal Medicine; Physician Assistant Medical; Student in an Organized Health Care Education/Training Program; ADMIT Internal Medicine
DX: N17.9 Acute kidney failure, unspecified (principal); E87.2 Acidosis; I47.2 Ventricular tachycardia; E87.3 Alkalosis; I95.9 Hypotension, unspecified; I11.0 Hypertensive heart disease with heart failure; E11.42 Type 2 diabetes mellitus with diabetic polyneuropathy; I50.32 Chronic diastolic (congestive) heart failure; S42.391A Other fracture of shaft of right humerus, initial encounter for closed fracture; E87.1 Hypo-osmolality and hyponatremia; F17.210 Nicotine dependence, cigarettes, uncomplicated; E87.6 Hypokalemia; W18.30XA Fall on same level, unspecified, initial encounter; Y92.009 Unspecified place in unspecified non-institutional (private) residence as the place of occurrence of the external cause; Z79.84 Long term (current) use of oral hypoglycemic drugs; E83.42 Hypomagnesemia; F10.20 Alcohol dependence, uncomplicated; I95.1 Orthostatic hypotension; E78.5 Hyperlipidemia, unspecified
CPT/HCPCS: 1NSP; 84133; 84300; 36415; 73030-RT; 80307; 81001; 82436; 82570; 93005; 93010; 93306; 96374; 96375; 97110-GO; 97116-GO; 97162-GP; 97530-GO; 99233; 99291; G0480; J0131; J1644; J2270; J3490; J7040; J7060